=== PATIENT | female | born 1970 | race Caucasian/White ===

== ENCOUNTER → 2018-04-13 19:12 | Outpatient (CLI) | payer OTHER, SELFPAY ==
[2018-04-16 14:22] LABS: HPV APTIMA, High Risk Negative (Negative)
== END ==
PROVIDERS: PCP Nurse Practitioner Women's Health; Visit Provider Nurse Practitioner Women's Health
DX: Z12.4 Encounter for screening for malignant neoplasm of cervix (principal)
CPT/HCPCS: 88175; G0145

== ENCOUNTER → 2018-05-03 06:32 | Outpatient (CLI) | payer OTHER, SELFPAY ==
--- NOTE | 2018-05-03 06:32 | DT_ITS ---
This patient was seen during an EMR downtime April 26, 2018 - May 03, 2018. This patient may have a combination of paper and electronic documentation or all paper documentation. All documentation is viewable within the e-chart portion of [facility] for each patient visit.
[2018-05-03 08:44] LABS: Follicle Stimulating Hormone 18.1 mIU/mL
== END ==
PROVIDERS: Family Provider Family Medicine; PCP Family Medicine; Visit Provider Nurse Practitioner Women's Health
DX: N91.2 Amenorrhea, unspecified (principal)
CPT/HCPCS: 36415; 83001

== ENCOUNTER → 2019-04-27 11:19 | Outpatient (CLI) | payer OTHER, SELFPAY ==
--- NOTE | 2019-04-27 11:26 | BI_ITS ---
MAMMOGRAPHY - BILATERAL SCREENING REASON FOR EXAM: Female, 49 years old. Routine annual screening examination. PERTINENT HISTORY: Mother with breast cancer. TECHNIQUE: Digital bilateral breast kasey (3D mammographic acquisition) in the CC and MLO projections. 2-D mediolateral oblique (MLO) and craniocaudad (CC) views of both breasts were obtained. CAD: Full Field Digital Mammography with Computer Added Detection was performed. COMPARISON: Comparison is made with prior outside examination dated August 13, 2017. FINDINGS: Breast Composition: The breasts are heterogeneously dense, which may obscure small masses. There are no dominant masses or suspicious calcifications. No other significant abnormalities are identified. There has been no significant change since the prior study. BI/SCREEN MAMM (CAD) W/KASEY BILAT IMPRESSION: Stable bilateral screening mammogram. Yearly follow-up mammogram recommended. (A) ASSESSMENT CATEGORY: BIRADS Category 1: Negative. A letter regarding these results will be sent to the patient by the facility within 30 days. Approximately 10% of breast cancers are not detected by mammography. A normal mammogram should not delay biopsy of a clinically suspicious abnormality. [id number] Electronically Signed: Juan Guzman, at 12:47 EDT , Service support ,
[2019-04-27 13:31] LABS: Follicle Stimulating Hormone 5.9 mIU/mL
== END ==
PROVIDERS: Family Provider Family Medicine; PCP Family Medicine; Referring Provider Nurse Practitioner Women's Health; Visit Provider Nurse Practitioner Women's Health
DX: Z12.31 Encounter for screening mammogram for malignant neoplasm of breast (principal); Z80.3 Family history of malignant neoplasm of breast; N91.2 Amenorrhea, unspecified
CPT/HCPCS: 36415; 77063; 77067; 83001

== ENCOUNTER → 2020-04-23 06:49 | Outpatient (CLI) | payer OTHER, SELFPAY ==
[2019-04-27 11:54] VITALS: BMI 35.4
[2020-04-23 14:28] LABS: Follicle Stimulating Hormone 49.9 mIU/mL
== END ==
PROVIDERS: PCP Family Medicine; Referring Provider Nurse Practitioner Women's Health; Visit Provider Nurse Practitioner Women's Health
DX: N91.2 Amenorrhea, unspecified (principal)
CPT/HCPCS: 36415; 83001

== ENCOUNTER → 2020-05-04 07:01 | Outpatient (CLI) | payer OTHER, SELFPAY ==
[2020-05-02 08:05] VITALS: BMI 37.5
--- NOTE | 2020-05-04 07:02 | BI_ITS ---
MAMMOGRAPHY - BILATERAL SCREENING REASON FOR EXAM: Female, 50 years old. Routine annual screening examination. PERTINENT HISTORY: Mother with breast cancer. TECHNIQUE: Digital bilateral breast kasey (3D mammographic acquisition) in the CC and MLO projections. 2-D mediolateral oblique (MLO) and craniocaudad (CC) views of both breasts were obtained. CAD: Full Field Digital Mammography with Computer Added Detection was performed. COMPARISON: Comparison is made with prior examination dated April 27, 2019. FINDINGS: Breast Composition: The breasts are heterogeneously dense, which may obscure small masses. There are no dominant masses or suspicious calcifications. No other significant abnormalities are identified. There has been no significant change since the prior study. BI/SCREEN MAMM (CAD) W/KASEY BILAT IMPRESSION: Stable bilateral screening mammogram. Yearly follow-up mammogram recommended. (A) ASSESSMENT CATEGORY: BIRADS Category 1: Negative. A letter regarding these results will be sent to the patient by the facility within 30 days. Approximately 10% of breast cancers are not detected by mammography. A normal mammogram should not delay biopsy of a clinically suspicious abnormality. [id number] Electronically Signed: Juan Guzman, at 8:31 EDT , Service support ,
== END ==
PROVIDERS: PCP Family Medicine; Referring Provider Nurse Practitioner Women's Health; Visit Provider Nurse Practitioner Women's Health
DX: Z12.31 Encounter for screening mammogram for malignant neoplasm of breast (principal); Z80.3 Family history of malignant neoplasm of breast
CPT/HCPCS: 77063; 77067

== ENCOUNTER → 2020-05-07 06:29 | Outpatient (CLI) | payer OTHER, SELFPAY ==
[2020-05-02 08:05] VITALS: BMI 37.5
[2020-05-07 07:21] LABS: Cholesterol 230 mg/dL (200); Glucose 88 mg/dL (74-106); High Density Lipoprotein 71 mg/dL; Thyroid Stim Hormone (TSH) 2.34 uIU/mL (0.358-3.74); Triglycerides 160 mg/dL; Very Low Density Lipoprotein 32 mg/dL (5-40)
== END ==
PROVIDERS: PCP Family Medicine; Referring Provider Nurse Practitioner Women's Health; Visit Provider Nurse Practitioner Women's Health
DX: Z00.00 Encounter for general adult medical examination without abnormal findings (principal)
CPT/HCPCS: 36415; 80061; 82947; 84443

== ENCOUNTER 2021-02-08 11:47 | Outpatient (RCR) | payer OTHER, SELFPAY ==
[2020-05-02 08:05] VITALS: BMI 37.5
[2021-02-08] MEDS: COVID-19 VACC, MRNA(PFIZER)/PF 30 MCG/0.3 ML SYRINGE IM (11:25)
[2021-03-01] MEDS: COVID-19 VACC, MRNA(PFIZER)/PF 30 MCG/0.3 ML SYRINGE IM (11:17)
== END 2021-02-08 23:59 ==
LOC: IMMUN 11:47
PROVIDERS: PCP Family Medicine; Visit Provider Family Medicine
DX: Z23 Encounter for immunization (principal)
CPT/HCPCS: 0001A; 0002A; 91300

== ENCOUNTER → 2021-05-07 07:35 | Outpatient (CLI) | payer BC, SELFPAY ==
[2020-05-02 08:05] VITALS: BMI 37.5
--- NOTE | 2021-05-07 07:37 | BI_ITS ---
MAMMOGRAPHY - BILATERAL SCREENING REASON FOR EXAM: Female, 51 years old. Routine annual screening examination. PERTINENT HISTORY: Mother with breast cancer. TECHNIQUE: Digital bilateral breast kasey (3D mammographic acquisition) in the CC and MLO projections. 2-D mediolateral oblique (MLO) and craniocaudad (CC) views of both breasts were obtained. CAD: Full Field Digital Mammography with Computer Added Detection was performed. COMPARISON: Comparison is made with prior study 05/04/2020 and 04/27/2019. FINDINGS: Breast Composition: The breasts are heterogeneously dense, which may obscure small masses. There are no dominant masses or suspicious calcifications. No other significant abnormalities are identified. There has been no significant change since the prior study. BI/SCRN MAMM (CAD)W/KASEY BILAT IMPRESSION: Stable bilateral screening mammogram. Yearly follow-up mammogram recommended. (A) ASSESSMENT CATEGORY: BIRADS Category 1: Negative. A letter regarding these results will be sent to the patient by the facility within 30 days. Approximately 10% of breast cancers are not detected by mammography. A normal mammogram should not delay biopsy of a clinically suspicious abnormality. [id number] Electronically Signed: Juan Guzman MD at 8:39 EDT , Service support ,
[2021-05-10 16:53] LABS: HPV APTIMA, High Risk Negative (Negative)
== END ==
PROVIDERS: PCP Family Medicine; Referring Provider Nurse Practitioner Women's Health; Visit Provider Nurse Practitioner Women's Health
DX: Z12.31 Encounter for screening mammogram for malignant neoplasm of breast (principal); Z12.4 Encounter for screening for malignant neoplasm of cervix
CPT/HCPCS: 77063; 77067; 87624; 88175; G0145

== ENCOUNTER → 2022-05-14 | Outpatient (CLI) | payer BC, SELFPAY ==
--- NOTE | 2022-05-14 07:13 | BI_ITS ---
MAMMOGRAPHY - BILATERAL SCREENING REASON FOR EXAM: Female, 52 years old. Routine annual screening examination. PERTINENT HISTORY: Mother with breast cancer. TECHNIQUE: Digital bilateral breast kasey (3D mammographic acquisition) in the CC and MLO projections. 2-D mediolateral oblique (MLO) and craniocaudad (CC) views of both breasts were obtained. CAD: Full Field Digital Mammography with Computer Added Detection was performed. COMPARISON: Mammogram from 05/07/2021, 05/04/2020, 04/27/2019. FINDINGS: Breast Composition: The breasts are heterogeneously dense, which may obscure small masses. There are no dominant masses or suspicious calcifications. No other significant abnormalities are identified. There has been no significant change since the prior study. BI/SCRN MAMM (CAD)W/KASEY BILAT IMPRESSION: Stable bilateral screening mammogram. Yearly follow-up mammogram recommended. (A) ASSESSMENT CATEGORY: BIRADS Category 1: Negative. A letter regarding these results will be sent to the patient by the facility within 30 days. Approximately 10% of breast cancers are not detected by mammography. A normal mammogram should not delay biopsy of a clinically suspicious abnormality. [id number] Electronically Signed: Milton Gonzales, at 10:58 EDT ,
== END | disposition home or self-care (01) ==
LOC: OPBI 07:11
PROVIDERS: Visit Provider Nurse Practitioner Women's Health
DX: Z12.31 Encounter for screening mammogram for malignant neoplasm of breast (principal); Z80.3 Family history of malignant neoplasm of breast
CPT/HCPCS: 77063; 77067

== ENCOUNTER → 2023-05-25 | Outpatient (CLI) | payer BC, SELFPAY ==
--- NOTE | 2023-05-25 07:25 | BI_ITS ---
MAMMOGRAPHY - BILATERAL SCREENING REASON FOR EXAM: Female, 53 years old. Routine annual screening examination. PERTINENT HISTORY: Mother with breast cancer. TECHNIQUE: Digital bilateral breast kasey (3D mammographic acquisition) in the CC and MLO projections. 2-D mediolateral oblique (MLO) and craniocaudad (CC) views of both breasts were obtained. CAD: Full Field Digital Mammography with Computer Added Detection was performed. COMPARISON: Comparison is made with prior study May 14, 2022 and May 07, 2021. FINDINGS: Breast Composition: The breasts are heterogeneously dense, which may obscure small masses. There are no dominant masses or suspicious calcifications. Stable small benign-appearing bilateral axillary lymph nodes. No other significant abnormalities are identified. There has been no significant change since the prior study. BI/SCRN MAMM (CAD)W/KASEY BILAT IMPRESSION: Stable bilateral screening mammogram. Yearly follow-up mammogram recommended. (A) ASSESSMENT CATEGORY: BIRADS Category 2: Benign. A letter regarding these results will be sent to the patient by the facility within 30 days. Approximately 10% of breast cancers are not detected by mammography. A normal mammogram should not delay biopsy of a clinically suspicious abnormality. [id number] Electronically Signed: Juan Guzman MD at 8:46 EDT ,
[2023-05-29 05:07] LABS: Chlamydia By Nucleic Acid AMP Negative (Negative); Gonococcus By Nucleic Acid AMP Negative (Negative)
== END | disposition home or self-care (01) ==
PROVIDERS: Referring Provider Nurse Practitioner Women's Health; Visit Provider Nurse Practitioner Women's Health
DX: Z12.31 Encounter for screening mammogram for malignant neoplasm of breast (principal); Z11.3 Encounter for screening for infections with a predominantly sexual mode of transmission; Z80.3 Family history of malignant neoplasm of breast
CPT/HCPCS: 77063; 77067; 87491; 87591

== ENCOUNTER → 2023-06-18 | Outpatient (CLI) | payer BC, SELFPAY ==
[2023-06-18 07:20] LABS: Absolute Lymphocyte Count 1.49 X10^3/uL (0.83-4.51); Absolute Neutrophil Count 3.9 X10^3/uL (2.0-7.7); Basophil# 0.06 X10^3/uL; Eosinophil# 0.25 X10^3/uL; Hematocrit 40.6 % (37-47); Hemoglobin 13.2 g/dL (12.0-15.0); Lymphocyte # 1.49 X10^3/ul (0.83-4.51); Mean Corp Hgb Conc 32.5 g/dL (32-36); Mean Corpuscular Hgb 30.8 pg (27.0-32.0); Mean Corpuscular Volume 94.6 fL (81-99); Mean Platelet Vol. 10.6 fl (6.2-12.0); Monocyte# 0.51 X10^3/uL; Monocyte% 8.2 % (0-10); NRBC Flagged by Analyzer 0 % (0-5); Neutrophil # 3.88 X10^3/uL (2.7-7.7); Neutrophil % 62.3 % (47-70); Platelet Count 227 K/mm3 (150-450); RBC Distribution Width CV 12.9 % (11.6-14.6); RBC Distribution Width SD 44.5 fl (35.1-43.9); Red Blood Count 4.29 M/mm3 (4.2-5.4); White Blood Count 6.2 K/mm3 (4.4-11.0)
[2023-06-18 07:43] LABS: ALB/GLOB Ratio 0.7 RATIO (0.9-2.4); AST(SGOT) 18 U/L (15-37); Alanine Aminotransfer ALT/SGPT 25 U/L (13-56); Albumin, Serum 3.5 g/dL (3.2-5.0); Alkaline Phosphatase 117 U/L (45-117); Anion Gap 7 (5-15); BUN 18 mg/dL (7-18); BUN/Creat Ratio 19.5 RATIO (10-20); Chloride 105 mmol/L (98-107); Cholesterol 236 mg/dL (200); Creatinine, Serum 0.92 mg/dL (0.55-1.02); EST Glomerular Filtration Rate 67 mL/min (>60); Est Glom Filt Rate - Afr Amer 82 mL/min (>60); Globulin 4.7 g/dL (2.2-4.2); Glucose 93 mg/dL (74-106); High Density Lipoprotein 71 mg/dL; Potassium 4.1 mmol/L (3.5-5.1); Protein, Total 8.2 g/dL (6.4-8.2); Sodium Level 138 mmol/L (136-145); Triglycerides 113 mg/dL; Very Low Density Lipoprotein 23 mg/dL (5-40)
== END | disposition home or self-care (01) ==
PROVIDERS: PCP Internal Medicine; Referring Provider Internal Medicine; Visit Provider Internal Medicine
DX: Z00.00 Encounter for general adult medical examination without abnormal findings (principal); Z13.6 Encounter for screening for cardiovascular disorders
CPT/HCPCS: 36415; 80053; 80061; 85025

== ENCOUNTER → 2024-06-01 | Outpatient (CLI) | payer BC, SELFPAY ==
--- NOTE | 2024-06-01 07:18 | BI_ITS ---
MAMMOGRAPHY - BILATERAL SCREENING REASON FOR EXAM: Female, 54 years old. Routine annual screening examination. PERTINENT HISTORY: Mother with breast cancer. TECHNIQUE: Digital bilateral breast kasey (3D mammographic acquisition) in the CC and MLO projections. 2-D mediolateral oblique (MLO) and craniocaudad (CC) views of both breasts were obtained. CAD: Full Field Digital Mammography with Computer Added Detection was performed. COMPARISON: Comparison is made with prior study dated May 25, 2023 and May 14, 2022. FINDINGS: Breast Composition: The breasts are heterogeneously dense, which may obscure small masses. There are no dominant masses or suspicious calcifications. Stable small benign-appearing bilateral axillary lymph nodes. No other significant abnormalities are identified. There has been no significant change since the prior study. BI/SCRN MAMM (CAD)W/KASEY BILAT IMPRESSION: Stable bilateral screening mammogram. Yearly follow-up mammogram recommended. (A) ASSESSMENT CATEGORY: BIRADS Category 2: Benign. A letter regarding these results will be sent to the patient by the facility within 30 days. Approximately 10% of breast cancers are not detected by mammography. A normal mammogram should not delay biopsy of a clinically suspicious abnormality. [id number] Electronically Signed: Juan Guzman MD at 8:33 EDT ,
[2024-06-07 14:10] LABS: HPV APTIMA, High Risk Negative (Negative)
== END | disposition home or self-care (01) ==
PROVIDERS: Nurse Practitioner Family; PCP Internal Medicine; Referring Provider Nurse Practitioner Women's Health; Visit Provider Nurse Practitioner Women's Health
DX: Z12.31 Encounter for screening mammogram for malignant neoplasm of breast (principal); Z80.3 Family history of malignant neoplasm of breast
CPT/HCPCS: 77063; 77067; 87624; 88175; G0145

== ENCOUNTER → 2024-06-22 | Outpatient (CLI) | payer BC, SELFPAY ==
[2024-06-22 07:25] LABS: Absolute Lymphocyte Count 1.92 X10^3/uL (0.83-4.51); Absolute Neutrophil Count 3.1 X10^3/uL (2.0-7.7); Basophil# 0.06 X10^3/uL; Eosinophil# 0.33 X10^3/uL; Eosinophils% 5.6 % (0-5); Hematocrit 38.5 % (37-47); Hemoglobin 12.6 g/dL (12.0-15.0); Lymphocyte # 1.92 X10^3/ul (0.83-4.51); Lymphocyte % 32.4 % (19-41); Mean Corp Hgb Conc 32.7 g/dL (32-36); Mean Corpuscular Hgb 29.6 pg (27.0-32.0); Mean Corpuscular Volume 90.4 fL (81-99); Mean Platelet Vol. 10.8 fl (6.2-12.0); Monocyte# 0.46 X10^3/uL; Monocyte% 7.8 % (0-10); NRBC Flagged by Analyzer 0 % (0-5); Neutrophil # 3.14 X10^3/uL (2.7-7.7); Neutrophil % 52.9 % (47-70); Platelet Count 244 K/mm3 (150-450); RBC Distribution Width CV 12.9 % (11.6-14.6); RBC Distribution Width SD 42.5 fl (35.1-43.9); Red Blood Count 4.26 M/mm3 (4.2-5.4); White Blood Count 5.9 K/mm3 (4.4-11.0)
[2024-06-22 07:52] LABS: ALB/GLOB Ratio 0.8 RATIO (0.9-2.4); AST(SGOT) 17 U/L (15-37); Alanine Aminotransfer ALT/SGPT 17 U/L (13-56); Albumin, Serum 3.4 g/dL (3.2-5.0); Alkaline Phosphatase 107 U/L (45-117); Anion Gap 2 (5-15); BUN 15 mg/dL (7-18); BUN/Creat Ratio 16.9 RATIO (10-20); Calcium,Total 8.8 mg/dL (8.5-10.1); Chloride 107 mmol/L (98-107); Cholesterol 202 mg/dL (200); Creatinine, Serum 0.89 mg/dL (0.55-1.02); EST Glomerular Filtration Rate 70 mL/min (>60); Est Glom Filt Rate - Afr Amer 85 mL/min (>60); Globulin 4.3 g/dL (2.2-4.2); Glucose 86 mg/dL (74-106); High Density Lipoprotein 69 mg/dL; Potassium 4.2 mmol/L (3.5-5.1); Protein, Total 7.7 g/dL (6.4-8.2); Sodium Level 138 mmol/L (136-145); Triglycerides 100 mg/dL; Very Low Density Lipoprotein 20 mg/dL (5-40)
== END | disposition home or self-care (01) ==
LOC: LAB 06:41
PROVIDERS: PCP Internal Medicine; Referring Provider Nurse Practitioner; Visit Provider Nurse Practitioner
DX: Z00.00 Encounter for general adult medical examination without abnormal findings (principal)
CPT/HCPCS: 36415; 80053; 80061; 85025

== ENCOUNTER → 2025-06-06 | Outpatient (CLI) | payer BC, SELFPAY ==
--- NOTE | 2025-06-06 06:55 | BI_ITS ---
EXAM: SCRN MAMM (CAD)W/KASEY BILAT DATE: 06/06/2025 CLINICAL HISTORY: F, Age 55 y/o , SCREENING MAMMOGRAM FOR BREAST CANCER History of mother with breast cancer. TECHNIQUE: SCRN MAMM (CAD)W/KASEY BILAT COMPARISON: Prior exam(s) dated June 01, 2024.. FINDINGS: TISSUE DENSITY: The breasts are heterogeneously dense, which may obscure small masses. Bilateral Breast Mammographic Findings: There is a 7.5 mm slightly irregular density in the deep medial upper aspect of the left breast. Correlation with ultrasound recommended. BI/SCRN MAMM (CAD)W/KASEY BILAT IMPRESSION: 7.5 mm irregular nodular density seen deep in the medial upper aspect of the le ft breast as described. Sonographic correlation recommended. OVERALL FINAL ASSESSMENT BI-RADS 0: INCOMPLETE - NEED ADDITIONAL IMAGING EVALUATION. RECOMMENDATION: Ultrasound Recommended A letter with findings and recommendations will be mailed to the patient. Reading Location: [facility]
--- NOTE | 2025-06-06 06:55 | BI_ITS ---
EXAM: SCRN MAMM (CAD)W/KASEY BILAT DATE: 06/06/2025 CLINICAL HISTORY: F, Age 55 y/o , SCREENING MAMMOGRAM FOR BREAST CANCER History of mother with breast cancer. TECHNIQUE: SCRN MAMM (CAD)W/KASEY BILAT COMPARISON: Prior exam(s) dated June 01, 2024.. FINDINGS: TISSUE DENSITY: The breasts are heterogeneously dense, which may obscure small masses. Bilateral Breast Mammographic Findings: There is a 7.5 mm slightly irregular density in the deep medial upper aspect of the left breast. Correlation with ultrasound recommended. BI/SCRN MAMM (CAD)W/KASEY BILAT IMPRESSION: 7.5 mm irregular nodular density seen deep in the medial upper aspect of the le ft breast as described. Sonographic correlation recommended. OVERALL FINAL ASSESSMENT BI-RADS 0: INCOMPLETE - NEED ADDITIONAL IMAGING EVALUATION. RECOMMENDATION: Ultrasound Recommended A letter with findings and recommendations will be mailed to the patient. Reading Location: [facility]
--- OUTSIDE RECORDS SUMMARY | 2025-06-06 07:09 | XMS RPT_ITS | CCD ---
Author Organization [facility] Care Team Providers Care Traveling Passenger Agent Name Role Phone Dr. Ye Villanueva Referring Provider Aclides HVAC SERVICE TECH, HVAC SERVICE TECH-C Mónica Attending Provider Care Physician, No Primary Primary Care Provider Unavailable Unavailable Primary Care Provider Unavailabl e Care Physician, No Primary Primary Care Provider Unavailable Care Physician, No Primary Referring Provider Un available Alcides HVAC SERVICE TECH, HVAC SERVICE TECH-C Móniac Attending Provider Dr. Bev Banks Attending Provider Sanderson, Bev Primary Care Unavailable July Ny Attending Unavailable Darren Bev Referring Unavailable Sanderson, Bev Primary Care Unavailable Alcides HVAC SERVICE TECHMónica Attending Unavailable Darren, Bev Referring Unavailable Darren, Bev Primary Care Unavailable July Ny Referring Unavailable July Ny Attending Unavailable Sanderson, Bev Primary Care Unavailable Alcides HVAC SERVICE TECHMónica Referring Unavailable Alcides HVAC SERVICE TECHMónica Attending Unavailable Allergies Allergy Classification Reported Allergen(s) Allergy Type Date of Onset Reaction(s) Facility (2 sources) Penicillins; Translations: [PENICILLINS] Propensity to adverse reactions to drug (disorder) 2 GI Upset [facility] Repository Medications Current Medications Medication Drug Class(es) Dates Sig (Normalized) Sig (Original) calcium carbonate 1500 mg oral tablet (2 sources) Start: 05-25-2023 take 1 tablet by mouth once daily Calcium Carbonate (Calcium 600) 600 mg calcium (1,500 mg) tablet Active 600 MG PO DAILY May 25, 2023 12:00am Radhika albicans allergenic extract (1 source) Non-Standardized Food Allergenic Extract, Non-Standardized Fungal Allergenic Extract Start: 06-16-2023 Yeast Active MG PO June 16, 2023 12:00am cephalexin 500 mg oral capsule (1 source) Cephalosporin Antibacterial Start: 11-28-2022 End: 12-03-2022 take 1 capsule by mouth four times daily cephALEXin (KEFLEX) 500 mg capsule Take 1 capsule by mouth four times daily for 5 days. 20 capsule 0 11/28/2022 12/03/2022 Active Comment on above: Take 1 capsule by mo uth four times daily for 5 days. Cranberry Fruit Concentrate (1 source) Non-Standardized Food Allergenic Extract, Non-Standardized Plant Allergenic Extract Start: 06-16-2023 take 1 tablet by mouth three times daily Cranberry Fruit Concentrate (Azo Cranberry) 250 mg tablet,chewable Active 250 MG PO THREE TIMES A DAY June 16, 2023 12:00am Multivit With Min-Folic Acid (One-A-Day Women Vitacraves) 200 mcg tablet,chewable (1 source) Start: 06-16-2023 take 1 tablet by mouth once Multivit With Min-Folic Acid (One-A-Day Women Vitacraves) 200 mcg tablet,chewable Active TABLET PO June 16, 2023 12:00am serene (3 sources) Start: 05-14-2022 serene Active PO May 14, 2022 12:00am spironolactone 25 mg oral tablet (1 source) Aldosterone Antagonist Start: 06-16-2023 Spironolactone Active MG PO June 16, 2023 12:00am Completed/Discontinued Medications Medication Drug Class(es) Dates Sig (Normalized) Sig (Original) Desog-E.Estradiol/ E.Estradiol (13 sources) Progestin, Estrogen Start: 04-27-2019 End: 05-02-2020 take 0.15 tablet by mouth once daily Desog-E.Estradiol/E .Estradiol (Viorele (28)) 0.15-0.02 mgx21 /0.01 mg x 5 tablet Discontinued 1 TABLET PO daily April 27, 2019 11:55am May 02, 2020 8:11am Start: 05-05-2018 End: 04-27-2019 take 0.15 tablet by mouth once daily Desog-E.Estradiol/E.Estradiol (Viorele ( 28)) 0.15-0.02 mgx21 /0.01 mg x 5 tablet Discontinued 1 TABLET PO daily May 05, 2018 10:03am April 27, 2019 11:56am Start: 04-16-2018 End: 05-05-2018 take 0.15 tablet by mouth once daily Desog-E.Estradiol/E.Estradiol (Viorele ( 28)) 0.15-0.02 mgx21 /0.01 mg x 5 tablet Discontinued 1 TABLET PO daily April 16, 2018 7:32am May 05, 2018 10:05am Start: 04-13-2018 End: 04-16-2018 take 0.15 tablet by mouth once daily Desog-E.Estradiol/E.Estradiol (Viorele ( 28)) 0.15-0.02 mgx21 /0.01 mg x 5 tablet Discontinued 1 TABLET PO daily April 13, 2018 12:00am April 16, 2018 7:33am Start: 04-30-2017 take 1 tablet by lucio th once daily Desogestrel-Ethinyl Estradiol (VIORELE, 28,) 0.15-0.02 mgx21 /0.01 mg x 5 per tablet Indications: General counseling for prescription of oral contraceptives Take 1 tablet by mouth once daily. 3 Package 4 04/30/2017 Active Comment on above: Take 1 tablet by lucio th once daily. dim (3 sources) Start: 05-14-2022 End: 05-25-2023 dim Discontinued PO May 14, 2022 12:00am May 25, 2023 8:10am Start: 05-14-2022 dim Active PO May 14, 2022 12:00am fluconazole 150 mg oral tablet (8 sources) Azole Antifungal Start: 05-25-2023 End: 06-16-2023 Fluconazole Discontinued 150 MG PO .COMPLEX 2 May 25, 2023 12:00am June 16, 2023 12:34pm 150 mg PO take one po now and repeat in 3 days Start: 05-02-2020 End: 05-07-2021 Fluconazole Discontinued 150 MG PO .COMPLEX 2 May 02, 2020 12:00am May 07, 2021 8:02am 150 mg PO take one po now and repeat in 3 days Start: 04-16-2018 End: 04-27-2019 Fluconazole Discontinued 150 MG PO .COMPLEX 2 April 16, 2018 12:00am April 27, 2019 11:52am 150 mg PO take one po now and repeat in 3 days hormone replacement therapy (3 sources) Start: 05-14-2022 End: 05-25-2023 hormone replacement therapy Discontinued IMPLANT May 14, 2022 12:00am May 25, 2023 8:10am pellets Start: 05-14-2022 hormone replac ement therapy Active IMPLANT May 14, 2022 12:00am pellets medroxyPROGESTERone acetate 10 mg oral tablet (3 sources) Progestin Start: 05-14-2022 End: 05-24-2022 take 10 mg by mouth once daily Medroxyprogesterone Discontinued 10 MG PO daily 10 May 14, 2022 12:00am May 24, 2022 12:05am Phenazopyridine (1 source) PHENAZOPYRIDINE HCL (AZO ORAL) Take by mouth. 0 Active Comment on above: Take by mouth. Problems Problem Classification Problem Date Documented Date Episodic/Chronic Administrative/social admission (3 sources) Patient encounter status; Translations: [Other specified counseling] Episodic Disorders of lipid metabolism (1 source) Hyperlipidemia; Translations: [Hyperlipidemia, unspecified] 09-28-2007 Chronic Disorders of teeth and jaw (1 source) Infection of tooth; Translations: [Periapical abscess without sinus] Episodic Immunizations and screening for infectious disease (2 sources) Contact with and (suspected) exposure to infections with a predominantly sexual mode of transmission; Translations: [Contact with or exposure to venereal diseases] 05-25-2023 Episodic Mood disorders (1 source) Depressive disorder; Translations: [Other specified depressive episodes] Onset: 07-17-2009 07-17-2009 Chronic Mycoses (2 sources) Candidiasis of vagina; Translations: [Anogenital candidiasis in female] 05-25-2023 Episodic Other nutritional; endocrine; and metabolic disorders (1 source) Obesity; Translations: [Obesity, unspecified] Onset: 06-06-2009 06-06-2009 Chronic Other screening for suspected conditions (not mental disorders or infectious disease) (3 sources) Encounter for screening for malignant neoplasm of colon; Translations: [Special screening for malignant neoplasms of colon] Onset: 06-02-2025 06-16-2023 Episodic Residual codes; unclassified (3 sources) Family history of malignant neoplasm of breast in first degree relative; Translations: [Family history of malignant neoplasm of breast] 05-25-2023 Episodic Residual codes; unclassified (1 source) Family history of malignant neoplasm of breast; Translations: [Family history of malignant neoplasm of breast] Episodic Residual codes; unclassified (1 source) Immunization not carried out because of patient refusal; Translations: [Vaccination not carried out because of patient refusal] 06-16-2023 Episodic Results Test Name Value Interpretation Reference Range Facility CBC W/Diff, Automatedon - Absolute Lymph 1.92 X10 3/uL Normal 0.83-4.51 [facility] Comment on above: Performed By: #### L [id number], L500.4100, L100.0100 #### [facility] [address] [place], [address] Absolute Neut 3.1 X10 3/uL Normal 2.0-7.7 [facility] Comment on above: Performed By: #### L [id number], L500.4100, L100.0100 #### [facility] [address] [place], [address] Basophils/100 WBC (Bld) 1.0 % Normal 0-1 [facility] Comment on above: Performed By: #### L [id number], L500.4100, L100.0100 #### [facility] [address] [place], [address] Eosinophils/100 WBC (Bld) 5.6 % High 0-5 [facility] Comment on above: Performed By: #### L [id number], L500.4100, L100.0100 #### [facility] [address] [place], [address] Erythrocyte distribution width (RBC) [Ratio] 12.9 % Normal 11.6-14.6 [facility] Comment on above: Performed By: #### L [id number], L500.4100, L100.0100 #### [facility] [address] [place], [address] Hematocrit (Bld) [Volume fraction] 38.5 % Normal 37-47 [facility] Comment on above: Performed By: #### L [id number], L500.4100, L100.0100 #### [facility] [address] [place], [address] Hemoglobin (Bld) [Mass/Vol] 12.6 g/dL Normal 12.0-15.0 [facility] Comment on above: Performed By: #### L [id number], L500.4100, L100.0100 #### [facility] [address] [place], [address] IG% 0.300 Normal 0.0-0.9 [facility] Comment on above: Result Comment: IG% - Immature Granulocytes (promyelocytes, myelocytes and metamyelocytes) > 1% indicates that a LEFT SHIFT is Present. Performed By: #### L [id number], L500.4100, L100.0100 #### [facility] [address] [place], [address] Lymphocytes/100 WBC (Bld) 32.4 % Normal 19-41 [facility] Comment on above: Performed By: #### L [id number], L500.4100, L100.0100 #### [facility] [address] [place], [address] MCH (RBC) [Entitic mass] 29.6 pg Normal 27.0-32.0 [facility] Comment on above: Performed By: #### L [id number], L500.4100, L100.0100 #### [facility] [address] [place], [address] MCHC (RBC) [Mass/Vol] 32.7 g/dL Normal 32-36 [facility] Comment on above: Performed By: #### L [id number], L500.4100, L100.0100 #### [facility] [address] [place], [address] MCV (RBC) [Entitic vol] 90.4 fL Normal 81-99 [facility] Comment on above: Performed By: #### L [id number], L500.4100, L100.0100 #### [facility] [address] [place], [address] Monocytes/100 WBC (Bld) 7.8 % Normal 0-10 [facility] Comment on above: Performed By: #### L [id number], L500.4100, L100.0100 #### [facility] [address] [place], [address] Neutrophils/100 WBC (Bld) 52.9 % Normal 47-70 [facility] Comment on above: Performed By: #### L [id number], L500.4100, L100.0100 #### [facility] [address] [place], [address] Nucleated RBC (Bld) [#/Vol] 0 10*3/uL Normal 0-5 [facility] Comment on above: Performed By: #### L 500.4050, L500.4100, L100.0100 #### [facility] [address] [place], [address] Platelet mean volume (Bld) [Entitic vol] 10.8 fL Normal 6.2-12.0 [facility] Comment on above: Performed By: #### L 500.4050, L500.4100, L100.0100 #### [facility] [address] [place], [address] Platelets (Bld) [#/Vol] 244 10*3/uL Normal 150-450 [facility] Comment on above: Performed By: #### L [id number], L500.4100, L100.0100 #### [facility] [address] [place], [address] RBC (Bld) [#/Vol] 4.26 10*6/uL Normal 4.2-5.4 [facility] Comment on above: Performed By: #### L 500.4050, L500.4100, L100.0100 #### [facility] [address] [place], [address] RDW SD 42.5 fl Normal 35.1-43.9 [facility] Comment on above: Performed By: #### L [id number], L500.4100, L100.0100 #### [facility] [address] [place], [address] WBC (Bld) [#/Vol] 5.9 10*3/uL Normal 4.4-11.0 [facility] Comment on above: Performed By: #### L [id number], L500.4100, L100.0100 #### [facility] [address] [place], [address] Comprehensive Metabolic Prof [facility] 06-22-2024 Albumin [Mass/Vol] 3.4 g/dL Normal 3.2-5.0 [facility] Comment on above: Performed By: #### L 500.4050, L500.4100, L100.0100 #### [facility] [address] [place], [address] Albumin/Globulin [Mass ratio] 0.8 {ratio} Low 0.9-2.4 [facility] Comment on above: Performed By: #### L [id number], L500.4100, L100.0100 #### [facility] [address] [place], [address] ALK P 107 U/L Normal 45-117 [facility] Comment on above: Performed By: #### L 500.4050, L500.4100, L100.0100 #### [facility] [address] [place], [address] ALT [Catalytic activity/Vol] 17 U/L Normal 13-56 [facility] Comment on above: Performed By: #### L 500.4050, L500.4100, L100.0100 #### [facility] [address] [place], [address] AST [Catalytic activity/Vol] 17 U/L Normal 15-37 [facility] Comment on above: Performed By: #### L 500.4050, L500.4100, L100.0100 #### [facility] [address] [place], [address] Bilirubin [Mass/Vol] 0.30 mg/dL Normal 0.20-1.00 [facility] Comment on above: Result Comment: For patients on eltrombopag therapy, use of Dimension [place] TBIL is not recommended. Performed By: #### L 500.4050, L500.4100, L100.0100 #### [facility] [address] [place], [address] BUN/CRE 16.9 RATIO Normal 10-20 [facility] Comment on above: Performed By: #### L 500.4050, L500.4100, L100.0100 #### [facility] [address] [place], [address] CA,Total 8.8 mg/dL Normal 8.5-10.1 [facility] Comment on above: Performed By: #### L 500.4050, L500.4100, L100.0100 #### [facility] [address] [place], [address] Chloride [Moles/Vol] 107 mmol/L Normal 98-107 [facility] Comment on above: Performed By: #### L 500.4050, L500.4100, L100.0100 #### [facility] [address] [place], [address] CO2 [Moles/Vol] 29.0 mmol/L Normal 21.0-32.0 [facility] Comment on above: Performed By: #### L 500.4050, L500.4100, L100.0100 #### [facility] [address] [place], [address] Creatinine [Mass/Vol] 0.89 mg/dL Normal 0.55-1.02 [facility] Comment on above: Result Comment: The validity of the calculated GFR GFRAA in patients over 70 years has not been determined. Clinical correlation is essential. Performed By: #### L 500.4050, L500.4100, L100.0100 #### [facility] [address] [place], [address] EST GFR - AA 85 mL/min Normal >60 [facility] Comment on above: Result Comment: Afri can Mauritian GFR Calc Performed By: #### L 500.4050, L500.4100, L100.0100 #### [facility] [address] [place], [address] GAP 2 Low 5-15 [facility] Comment on above: Performed By: #### L 500.4050, L500.4100, L100.0100 #### [facility] [address] [place], [address] GFR/1.73 sq M.predicted among non-blacks MDRD (S/P/Bld) [Vol rate/Area] 70 mL/min/{1.73_m2} Normal >[address] [facility] Comment on above: Result Comment: Non- GFR Calc Performed By: #### L 500.4050, L500.4100, L100.0100 #### [facility] [address] [place], [address] Globulin (S) [Mass/Vol] 4.3 g/dL High 2.2-4.2 [facility] Comment on above: Performed By: #### L 500.4050, L500.4100, L100.0100 #### [facility] [address] [place], [address] Glucose [Mass/Vol] 86 mg/dL Normal 74-106 [facility] Comment on above: Performed By: #### L 500.4050, L500.4100, L100.0100 #### [facility] [address] [place], [address] Potassium [Moles/Vol] 4.2 mmol/L Normal 3.5-5.1 [facility] Comment on above: Performed By: #### L 500.4050, L500.4100, L100.0100 #### [facility] [address] [place], [address] Sodium [Moles/Vol] 138 mmol/L Normal 136-145 [facility] Comment on above: Performed By: #### L 500.4050, L500.4100, L100.0100 #### [facility] [address] [place], [address] T PROT 7.7 g/dL Normal 6.4-8.2 [facility] Comment on above: Performed By: #### L 500.4050, L500.4100, L100.0100 #### [facility] [address] [place], [address] Urea nitrogen [Mass/Vol] 15 mg/dL Normal 7-18 [facility] Comment on above: Performed By: #### L 500.4050, L500.4100, L100.0100 #### [facility] [address] [place], [address] Lipid Profileon 06-22-2024 Cholesterol [Mass/Vol] 202 mg/dL High [address] [facility] Comment on above: Result Comment: <200 mg/dL Desirable 200-240 mg/dL Borderline >240 mg/dL High Risk Performed By: #### L 500.4050, L500.4100, L100.0100 #### [facility] [address] [place], [address] Cholesterol in HDL [Mass/Vol] 69 mg/dL Normal [facility] Comment on above: Result Comment: The drugs N-Acetylcysteine and Metamizole may falsely depress this assay. Reference Range HDL <40 mg/dL Low HDL Cholesterol HDL >or= 60 mg/dL High HDL Cholesterol Performed By: #### L 500.4050, L500.4100, L100.0100 #### [facility] [address] [place], [address] Cholesterol in LDL [Mass/Vol] 113 mg/dL Normal 0-130 [facility] Comment on above: Performed By: #### L 500.4050, L500.4100, L100.0100 #### [facility] [address] [place], [address] Cholesterol in VLDL [Mass/Vol] 20 mg/dL Normal 5-40 [facility] Comment on above: Performed By: #### L 500.4050, L500.4100, L100.0100 #### [facility] [address] [place], [address] Triglyceride [Mass/Vol] 100 mg/dL Normal [facility] Comment on above: Result Comment: The drugs N-Acetylcysteine and Metamizole may falsely depress this assay. Serum Triglycerides Reference Interval Normal <150 mg/dL Borderline high 150 - 199 mg/dL High 200 - 499 mg/dL Very High > or = 500 mg/dL Performed By: #### L 500.4050, L500.4100, L100.0100 #### [facility] [address] [place], [address] Internal Medicine Office Vis mamie 06-21-2024 Internal Medicine Office Visit [facility] [address] [place] [address] [place] [address] OFFICE VISIT Date of Service: 06/21/24 MR#: [id number] Acct: [id number] Name: GRAZYNA UPTON Rep #: [id number] : 1970 Provider: ED espinoza Age/Sex: 54/F Location: [facility] Status: Signed Intake Vital Signs 06/16/23 12:36 06/01/24 08:28 06/21/24 13:10 Height 5 ft 4 in 5 ft 4 in 5 ft 4 in Weight: 212 lb 2 oz BMI 36.3 BP 122/60 H Blood Pressure Location Lt brachial Position Sitting Respiration 16 Pulse 90 Pulse Source Monitor Temp 98.2 F Temp Source Temporal Pulse Oximetry (%) 95 Oxygen Delivery Method room air Intake Visit Reasons: YEARLY Chief Complaint: yearly Ink Blender Required: No Accompanied by: Self Is patient in pain?: No Allergies No Known Allergies Allergy (Verified 06/21/24 13:06) Medications ???Medication ???Instructions ???Recorded ???Confirmed ???Type spironolactone 25 mg tablet 25 mg PO DAILY #90 tabs 02/07/24 06/21/24 Rx PFSH Medical History Family history of breast cancer in mother Abnormal Pap smear of cervix Surgical History History of cryosurgery Family History Mother Breast cancer Thyroid disorder Hyperlipidemia Social History household members: none current occupational status: employed 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 She is due for routine labs. She has not had any hospitalizations or ER visits. She was evaluated for abdominal pain in March 2024. She reports she had a large bowel movement and believes this was related to constipation her symptoms were relieved. She did not complete abdominal CT because she felt better. She has not had any recurrences of abdominal pain since. She has no acute concerns today. She remains on spironolactone for abnormal hair growth. Preventative Screenings: Cervical cancer-06/01/2024 demonstrated ASCUS, repeat recommended in 1 year, negative for high risk HPV Mammogram-06/01/2024, benign, repeat in 1 year DEXA scan (age 65+ unless high risk)-N/A Anxiety-no concerns Depression-no concerns HTN-blood pressure 122/60, does not monitor at home Skin cancer screening-due Colon cancer screening-declines Social History- Alcohol use-no current or former use Tobacco use-no current or former use Illicit drug use-no current or former use Lifestyle: Occupation-[employer] Diet-reports room for improvement Exercise-walks everyday 30 minutes Vaccinations- Influenza (seasonal)- declines Covid-declines Zoster (50+)-declines Pneumococcal (65+)-N/A List of current specialists: STITCH WHEELER Mobility: Ambulates independently, completes ADLs independently ROS Const Constitutional: No body ache, chills, excessive sweating, fatigue, fever(s), frequent falls, headache(s), snoring, weakness or change in appetite Eyes Eyes: No blurry vision, change in vision, eye pain or Light sensitivity ENT ENT: No abnormal hearing, ear or mastoid pain, tinnitus, nasal congestion, headache(s), neck pain or sore throat Resp Respiratory: No cough, shortness of breath, snoring or wheezing Cardio Cardiology: No chest pain at rest, chest pain with exertion, excessive sweating, dyspnea on exertion, lightheadedness, orthopnea or palpitations Gastro GI: No abdominal pain, change in bowel habits, constipation, cramping, diarrhea, nausea/dyspepsia or vomiting Genitourinary-Female : No burning urination, painful urination, urinary incontinence or urinary frequency Musc Musculoskeletal: No abnormal gait, joint pain, back pain, limited range of motion, muscle weakness, neck pain or numbness Skin Skin: No dry skin, redness, lesions, itchy eyes, rash or wounds Neuro Neurology: No abnormal gait, abnormal hearing, weakness, frequent falls, headache(s), memory loss or numbness Psych Psychiatric: No anxiety, No change in appetite, No depression, No memory loss and No Thoughts of harming yourself/Others Endo Endocrine: No cold intolerance, excessive sweating, fatigue, flushing, heat i (more content not included)... Normal [facility] Absolute lymphocyte countOrd ered By: Bev Banks on 06-18-2023 Lymphocytes Auto (Unsp spec) [#/Vol] 1.49 10*3/uL 0.83-4.51 [facility] Basophil percentageOrdered B y: Bev Banks on 06-18-2023 Basophils/100 WBC (Bld) 1.0 % 0-1 [facility] Bilirubin [Mass/Vol] 0.40 mg/dL 0.20-1.00 [facility] Comment on above: For patients on eltr ombopag therapy, use of Dimension [place] TBIL is not recommended. Chloride [Moles/Vol] 105 mmol/L 98-107 [facility] Cholesterol [Mass/Vol] 236 mg/dL <[address] [facility] Comment on above: <200 mg/dL Desirable 200-240 mg/dL Borderline >240 mg/dL High Risk Eosinophils/100 WBC (Bld) 4.0 % 0-5 [facility] Glucose [Mass/Vol] 93 mg/dL 74-106 [facility] Neutrophils (Bld) [#/Vol] 3.9 10*3/uL 2.0-7.7 [facility] Neutrophils/100 WBC (Bld) 62.3 % 47-70 [facility] Potassium [Moles/Vol] 4.1 mmol/L 3.5-5.1 [facility] Protein [Mass/Vol] 8.2 g/dL 6.4-8.2 [facility] Sodium [Moles/Vol] 138 mmol/L 136-145 [facility] Triglyceride [Mass/Vol] 113 mg/dL <199 [facility] Comment on above: The drugs N-Acetylcy steine and Metamizole may falsely depress this assay.Serum Triglycerides Reference Interval Normal <150 mg/dL Borderline high 150 - 199 mg/dL High 200 - 499 mg/dL Very High > or = 500 mg/dL WBC (Bld) [#/Vol] 6.2 10*3/uL 4.4-11.0 [facility] Blood erythrocytes count (nu mber/volume)Ordered By: Bev Banks on 06-18-2023 RBC (Bld) [#/Vol] 4.29 10*6/uL 4.2-5.4 [place] Blood hemoglobin measurement (mass/volume)Ordered By: Bev Banks on 06-18-2023 Hemoglobin (Bld) [Mass/Vol] 13.2 g/dL 12.0-15.0 [facility] Blood lymphocytes/100 leukoc ytesOrdered By: Bev Banks on 06-18-2023 Lymphocytes/100 WBC (Bld) 24.0 % 19-41 [facility] Blood monocytes/100 leukocyt esOrdered By: Bev Banks on 06-18-2023 Monocytes/100 WBC (Bld) 8.2 % 0-10 [facility] Blood platelet mean volumeOr dered By: Bev Banks on 06-18-2023 Platelet mean volume (Bld) [Entitic vol] 10.6 fL 6.2-12.0 [facility] Determination of erythrocyte mean corpuscular volume (MCV)Ordered By: Bev Banks on 06-18-2023 MCV (RBC) [Entitic vol] 94.6 fL 81-99 [facility] Hematocrit Auto (Bld) [Volum e fraction]Ordered By: Bev Banks on 06-18-2023 Hematocrit (Bld) [Volume fraction] 40.6 % 37-47 [facility] Laboratory - Chemistry and C hemistry - challengeOrdered By: Bev Banks on 06-18-2023 ALP [Catalytic activity/Vol] 117 U/L 45-117 [facility] ALT [Catalytic activity/Vol] 25 U/L 13-56 [facility] CO2 [Moles/Vol] 26.0 mmol/L 21.0-32.0 [facility] Globulin (S) [Mass/Vol] 4.7 g/dL 2.2-4.2 [facility] Urea nitrogen/Creatinine [Mass ratio] 19.5 mg/mg 10-20 [facility] Laboratory - Hematology and Cell countsOrdered By: Bev Banks on 06-18-2023 Erythrocyte distribution width (RBC) [Entitic vol] 44.5 fL 35.1-43.9 [facility] Erythrocyte distribution width (RBC) [Ratio] 12.9 % 11.6-14.6 [facility] Immature granulocytes/100 WBC (Bld) 0.500 % 0.0-0.9 [facility] Comment on above: IG% - Immature Granu locytes (promyelocytes, myelocytes and metamyelocytes) > 1% indicates that a LEFT SHIFT is Present. MCH (RBC) [Entitic mass] 30.8 pg 27.0-32.0 [facility] Nucleated RBC/100 WBC (Bld) [Ratio] 0 % 0-5 [facility] MCHC Auto (RBC) [Mass/Vol]Or dered By: Bev Banks on 06-18-2023 MCHC (RBC) [Mass/Vol] 32.5 g/dL 32-36 [facility] No Panel InformationOrdered By: Bev Banks on 06-18-2023 Estimated GFR (MDRD) Amer 82 mL/min >60 [facility] Comment on above: GFR Calc Estimated GFR (MDRD) Non-Af Amer 67 mL/min >60 [facility] Comment on above: Non- GFR Calc Platelets bldOrdered By: Billy Banks on 06-18-2023 Platelets (Bld) [#/Vol] 227 10*3/uL 150-450 [facility] Serum or plasma albumin tanika urement (mass/volume)Ordered By: Bev Banks on 06-18-2023 Albumin [Mass/Vol] 3.5 g/dL 3.2-5.0 [facility] Serum or plasma albumin/glob ulin mass ratioOrdered By: Bev Banks on 06-18-2023 Albumin/Globulin [Mass ratio] 0.7 {ratio} 0.9-2.4 [facility] Serum or plasma calcium tanika urement (mass/volume)Ordered By: Bev Banks on 06-18-2023 Calcium [Mass/Vol] 9.0 mg/dL 8.5-10.1 [facility] Serum or plasma cholesterol in HDL measurement (mass/volume)Ordered By: Bev Banks on 06-18-2023 Cholesterol in HDL [Mass/Vol] 71 mg/dL >40 [facility] Comment on above: The drugs N-Acetylcy steine and Metamizole may falsely depress this assay. Reference Range HDL <40 mg/dL Low HDL Cholesterol HDL >or= 60 mg/dL High HDL Cholesterol Serum or plasma cholesterol in VLDL measurement (mass/volume)Ordered By: Bev Banks on 06-18-2023 Cholesterol in VLDL [Mass/Vol] 23 mg/dL 5-40 [facility] Serum or plasma creatinine m easurement (mass/volume)Ordered By: Bev Banks on 06-18-2023 Creatinine [Mass/Vol] 0.92 mg/dL 0.55-1.02 [facility] Comment on above: The validity of the calculated GFR & GFRAA in patients over 70 years has not been determined. Clinical correlation is essential. Serum or plasma low density lipoprotein (LDL) cholesterol measurement (mass/volume)Ordered By: Bev Banks on 06-18-2023 Cholesterol in LDL [Mass/Vol] 142 mg/dL 0-130 [facility] Serum or plasma urea nitroge n measurement (mass/volume)Ordered By: Bev Banks on 06-18-2023 Urea nitrogen [Mass/Vol] 18 mg/dL 7-18 [facility] Thin prep Papanicolaou smear with manual screeningOrdered By: Bev Banks on 06-18-2023 Thin prep Papanicolaou smear with manual screening 18 U/L 15-37 [facility] Thin prep Papanicolaou smear with manual screening 7 5-15 [facility] Chlamydia trachomatis rRNA d etection by probe and target amplification methodOrdered By: Mónica Mcgrath on 05-25-2023 C. trachomatis rRNA CLEMENTIEN+probe Ql (Unsp spec) Negative Negative [facility] Laboratory - Microbiology an d Antimicrobial susceptibilityOrdered By: Mónica Mcgrath on 05-25-2023 N. gonorrhoeae DNA CLEMENTINE+probe Ql (Unsp spec) Negative Negative [facility] Comment on above: Performed at: =G - [id number] [place] [id number] Director: Imani Jha MD, Phone: [phone] No Panel Informationon 05-25 POC Trichomonas (Rapid) Negative [facility] CNOVon 11-28-2022 CNOV Office Visit (UCWSTR) GRAZYNA UPTON ([id number]) 1970 F Date Time Provider Department 11/28/22 4:45 PM [facility] During your visit today, we recorded the following information about you: Temperature Pulse Respiration Blood pressure 98.5 degrees 92/minute 18/minute 138/86 Weight 96.8 kg Jaci Mendoza APRN.SHEET ROLLER OPERATOR 11/28/2022 5:08 PM Signed Subjective Came in with complaints of some left upper face swelling. Patient has noticed some recent teeth discomfort but feels like it stress related to clenching. Patient denies fevers nausea vomiting chills. The history is provided by the patient. No speech language assistant was used. Edema Review of Systems Constitutional: Negative. Skin: Negative. Objective Physical Exam Constitutional: Appearance: Normal appearance. HENT: Head: Comments: Minimal swelling noted in area marked above. Some dental carries noted with minimal redness around on the left upper jaw Cardiovascular: Rate and Rhythm: Normal rate and regular rhythm. Heart sounds: Normal heart sounds. Pulmonary: Effort: Pulmonary effort is normal. Breath sounds: Normal breath sounds. Neurological: Mental Status: She is alert. 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 Desogestrel-Ethinyl Estradiol (VIORELE, 28,) 0.15-0.02 mgx21 /0.01 mg x 5 per tablet Take 1 tablet by mouth once daily. (Patient not taking: Reported on 11/28/2022) PHENAZOPYRIDINE HCL (AZO ORAL) Take by mouth. FAMILY HISTORY Problem Relation Age of Onset Lipids Mother Thyroid Mother Breast Cancer Mother Cancer Maternal Grandmother liver other (unknown) Father ?? possibly has DM Cancer Maternal Aunt lung Cancer Maternal Uncle lung Cancer Maternal Uncle leukemia Social History Tobacco Use Smoking status: Never Smokeless tobacco: Never Substance Use Topics Alcohol use: No Drug use: No ASSESSMENT/PLAN: 1. Tooth infection - ICD9: 522.4, ICD10: K04.7 Patient was placed on Keflex 4 times a day for 5 days. Patient is going to follow-up with her dentist. Differentials were allergic reaction which was ruled out due to patient not having anything new at the time. Went over patient's history and medications with her. She was educated about red flag symptoms to watch for and is going to follow-up with her dentist. Patient was okay with this care plan. Jaci Mendoza APRN.SHEET ROLLER OPERATOR Allergies As of Date: 11/28/2022 Noted Allergy Reaction PENICILLINS 09/17/2012 8 - GI Upset Date Reviewed: 11/28/2022 Reviewed by: Adriana Soliman LPN - Fully Assessed Reason for Visit: Edema [39] Cmt: (LT) sided facial swelling, nasal congestion x1 day. Primary Visit Diagnosis:Tooth infection [K04.7] Order(s):cephALEXin (KEFLEX) 500 mg capsuleTake 1 capsule by mouth four times daily for 5 days.Disp: 20 capsuleRfl: 0 Prescriptions as of 11/28/2022 - cephALEXin (KEFLEX) 500 mg capsule Take 1 capsule by mouth four times daily for 5 days. - Desogestrel-Ethinyl Estradiol (VIORELE, 28,) 0.15-0.02 mgx21 /0.01 mg x 5 per tablet Take 1 tablet by mouth once daily. - PHENAZOPYRIDINE HCL (AZO ORAL) Take by mouth. Problem List As Of Date 11/28/2022 Noted Resolved HYPERLIPIDEMIA NEC/NOS [E78.5] Routine general medical examination at a health*06/06/2009 03/24/2012 Class: Chronic Routine gynecological examination [Z01.419] 06/06/2009 03/24/2012 Class: Chronic OBESITY NOS [E66.9] 06/06/2009 Depressive Disorder, not Elsewhere Classified [*07/17/2009 Prescriptions ordered this encounter Disp Refills Start End CEPHALEXIN 500 MG CAPSULE 20 c* 0 11/28/2022 12/03/2022 Route: ORAL Sig: Take 1 capsule by mouth four times daily for 5 days. Encounter Status:Closed by JACI MENDOZA on 11/28/22 Normal [facility] Vital Signs Date Time Vital Sign Value Performing Clinician Facility 06-16-2023 12:36-0400 Body height 162.56 cm No Primary Care Physician [facility] 06-16-2023 12:36-0400 Body mass index (BMI) [Ratio] 35.6 kg/m2 No Primary Care Physician [facility] 06-16-2023 12:36-0400 Body temperature 98.3 [degF] No Primary Care Physician [facility] 06-16-2023 12:36-0400 Body weight 94.34 kg No Primary Care Physician [facility] 06-16-2023 12:36-0400 Diastolic blood pressure 80 mm[Hg] No Primary Care Physician [facility] 06-16-2023 12:36-0400 Heart rate 76 /min No Primary Care Physician [facility] 06-16-2023 12:36-0400 Respiratory rate 16 /min No Primary Care Physician [facility] 06-16-2023 12:36-0400 SaO2% (BldA) [Mass fraction] 98 % No Primary Care Physician [facility] 06-16-2023 12:36-0400 Systolic blood pressure 122 mm[Hg] No Primary Care Physician [facility] 05-25-2023 08:11-0400 Body height 162.56 cm No Primary Care Physician [facility] 05-25-2023 08:05-0400 Body mass index (BMI) [Ratio] 35.5 kg/m2 No Primary Care Physician [facility] 05-25-2023 08:05-0400 Body weight 93.95 kg No Primary Care Physician [facility] 05-25-2023 08:05-0400 Diastolic blood pressure 68 mm[Hg] No Primary Care Physician [facility] 05-25-2023 08:05-0400 Systolic blood pressure 110 mm[Hg] No Primary Care Physician [facility] 11-28-2022 16:45-0500 Body temperature 98.49 [degF] Jaci Mendoza APRN.SHEET ROLLER OPERATOR Work Phone: [facility] 11-28-2022 16:45-0500 Body weight 96.8 kg Jaci Mendoza APRN.SHEET ROLLER OPERATOR Work Phone: [facility] 11-28-2022 16:45-0500 Diastolic blood pressure 86 mm[Hg] Jaci Mendoza APRN.SHEET ROLLER OPERATOR Work Phone: [facility] 11-28-2022 16:45-0500 Heart rate 92 /min Jaci Mendoza APRN.SHEET ROLLER OPERATOR Work Phone: [facility] 11-28-2022 16:45-0500 Respiratory rate 18 /min Jaci Mendoza APRN.SHEET ROLLER OPERATOR Work Phone: [facility] 11-28-2022 16:45-0500 SaO2% (BldA) [Mass fraction] 97 % Jaci Mendoza APRN.SHEET ROLLER OPERATOR Work Phone: [facility] 11-28-2022 16:45-0500 Systolic blood pressure 138 mm[Hg] Jaci Mendoza APRN.SHEET ROLLER OPERATOR Work Phone: [facility] 05-14-2022 08:06-0400 Body height 162.[address] Ye Villanueva Work Phone: [facility] Work Phone: 05-14-2022 08:06-0400 Body mass index (BMI) [Ratio] 33.3 kg/m2 Dr. Ye Villanueva Work Phone: [facility] Work Phone: 05-14-2022 08:06-0400 Body weight 88.[address] Ye Villanueva Work Phone: [facility] Work Phone: 05-14-2022 08:06-0400 Diastolic blood pressure 72 mm[Hg] Dr. Ye Villanueva Work Phone: [facility] Work Phone: 05-14-2022 08:06-0400 Systolic blood pressure 110 mm[Hg] Dr. Ye Villanueva Work Phone: [facility] Work Phone: Encounters Encounter Date Encounter Type Care Provider Facility Start: 06-06-2025 ambulatory [facility] Facility :[facility] Start: 07-17-2024 Encounter for genera l adult medical examination without abnormal findings [place] [facility] Start: 06-21-2024 End: 06-22-2024 ambulatory [facility] Facility:[facility] Start: 06-18-2023 End: 06-18-2023 ambulatory No Primary Care Physician [facility] Work Phone: Start: 06-18-2023 End: 06-18-2023 Patient encounter procedure No Primary Care Physician [facility] Work Phone: Start: 06-16-2023 End: 06-16-2023 Patient encounter procedure No Primary Care Physician [facility] Work Phone: Start: 05-25-2023 End: 05-25-2023 ambulatory No Primary Care Physician [facility] Work Phone: Start: 05-25-2023 End: 05-25-2023 Patient encounter procedure No Primary Care Physician [facility] Work Phone: Start: 11-28-2022 End: 11-28-2022 ambulatory Facility:[facility] Start: 11-28-2022 End: 11-28-2022 Patient encounter procedure Jaci Mendoza APRN.SHEET ROLLER OPERATOR Work Phone: [facility] Comment on above: Tooth infection (Nandini ju Dx) Start: 05-14-2022 End: 05-14-[address] Ye Villanueva Work Phone: [facility] Procedures Date Procedure Procedure Detail Performing Clinician Start: 05-25-2023 Screening mammography N o Primary Care Physician Start: 05-14-2022 Screening mammography Rhoda Villanueva Work Phone: Start: 08-13-2017 Mammography Jaci Josafat WALKER Work Phone: Plan of Treatment Date Care Activity Detail Author Start: 07-24-2022 Influenza vaccination INFLUENZA (#1) [facility] Start: 05-02-2022 LIPID SCREEN LIPID SCREEN [facility] Start: 04-30-2022 HPV TESTING HPV TESTING [facility] Start: 04-30-2022 PAP TESTING PAP TESTING [facility] Start: 04-26-2021 COVID-19 VACCINE (3 - Booster for Pfizer series) COVID-19 VACCINE (3 - Booster for Pfizer series) [facility] Start: 05-02-2020 DIABETES SCREEN DIABETES SCREEN [facility] Start: 2019 SHINGRIX VACCINE (1 of 2) SHINGRIX V ACCINE (1 of 2) [facility] Start: 08-13-2018 Mammography MAMMOGRAM [facility] Start: 2014 COLOGUARD (FIT-DNA) COLOGUARD (FIT-D NA) [facility] Start: 2014 Colonoscopy COLONOSCOPY [facility] Start: 2014 COLORECTAL CANCER SCREENING COLORECTAL CANCER SCREENING [facility] Start: [address] COLONOGRAPHY [facility] Start: 2014 FECAL OCCULT BLOOD FECAL OCCULT BLOO D [facility] Start: 2014 SIGMOIDOSCOPY SIGMOIDOSCOPY [facility] Start: 1988 Urine microalbumin profile DTAP,TDAP ,TD (1 - Tdap) [facility] Start: 1987 HEPATITIS C SCREENING HEPATITIS C SC ALEXANDRNING [facility] Start: 1987 HIV SCREENING HIV SCREENING [facility] Start: 1969 HEPATITIS B (1 of 3 - 3-dose series) HEPATITIS B (1 of 3 - 3-dose series) [facility] Immunizations Immunization Date Immunization Notes Care Provider Fa yaw 03-01-2021 Covid (Pfizer) Dr. Ye thompson Work Phone: [facility] 02-08-2021 Covid (Pfizer) Dr. Ye thompson Work Phone: [facility] Payers Date Payer Category Payer Self-pay [id number] 2022 Unknown [id number] 2022 Unknown [employer] PPO [id number] 2022-Present [phone] [id number] [place] [address] PPO [id number] Unknown [id number] Unknown [facility] [employer] [facility] [id number] Unknown [id number] Unknown [id number] Unknown [id number] Unknown [id number] Social History Date Type Detail Facility Start: 05-14-2022 End: 06-16-2023 Tobacco smoking status NHIS Unknown if ever smoked [facility] Start: 1970 Sex Assigned At Female [facility] Start: 09-04-2011 Tobacco smoking stat us NHIS Never smoked tobacco [facility] Start: 09-04-2011 Tobacco use and exposure Smokeless tobacco non-user [facility] Start: 11-28-2022 Alcohol intake Current non-dr murray of alcohol (finding) [facility] Start: 1970 Sex Assigned At Not on file [facility] Progress note 11-28-2022 Note Date & Type Note Facility 11-28-2022 Note HNO ID: [id number] Author: Jaci Mendoza APRN.SHEET ROLLER OPERATOR Service: ? Author Type: Nurse Practitioner Type: Progress Notes Filed: 11/28/2022 5:08 PM Note Text: Subjective Came in with complaints of some left upper face swelling. Patient has noticed some recent teeth discomfort but feels like it stress related to clenching. Patient denies fevers nausea vomiting chills. The history is provided by the patient. No speech language assistant was used. Edema Review of Systems Constitutional: Negative. Skin: Negative. Objective Physical Exam Constitutional: Appearance: Normal appearance. HENT: Head: Comments: Minimal swelling noted in area marked above. Some dental carries noted with minimal redness around on the left upper jaw Cardiovascular: Rate and Rhythm: Normal rate and regular rhythm. Heart sounds: Normal heart sounds. Pulmonary: Effort: Pulmonary effort is normal. Breath sounds: Normal breath sounds. Neurological: Mental Status: She is alert. 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 Desogestrel-Ethinyl Estradiol (VIORELE, 28,) 0.15-0.02 mgx21 /0.01 mg x 5 per tablet Take 1 tablet by mouth once daily. (Patient not taking: Reported on 11/28/2022) PHENAZOPYRIDINE HCL (AZO ORAL) Take by mouth. FAMILY HISTORY Problem Relation Age of Onset Lipids Mother Thyroid Mother Breast Cancer Mother Cancer Maternal Grandmother liver other (unknown) Father ?? possibly has DM Cancer Maternal Aunt lung Cancer Maternal Uncle lung Cancer Maternal Uncle leukemia Social History Tobacco Use Smoking status: Never Smokeless tobacco: Never Substance Use Topics Alcohol use: No Drug use: No ASSESSMENT/PLAN: 1. Tooth infection - ICD9: 522.4, ICD10: K04.7 Patient was placed on Keflex 4 times a day for 5 days. Patient is going to follow-up with her dentist. Differentials were allergic reaction which was ruled out due to patient not having anything new at the time. Went over patient's history and medications with her. She was educated about red flag symptoms to watch for and is going to follow-up with her dentist. Patient was okay with this care plan. Jaci Mendoza APRN.ATA [facility] History of Present illness Narrative 11-28-2022 Jaci Mendoza APRN.ATA - 11/28/2022 5:03 PM EST Note Date & Type Note Facility 11-28-2022 History of Presen t illness Narrative Images from the original note were not included. Subjective Came in with complaints of some left upper face swelling. Patient has noticed some recent teeth discomfort but feels like it stress related to clenching. Patient denies fevers nausea vomiting chills. The history is provided by the patient. No speech language assistant was used. Edema Review of Systems Constitutional: Negative. Skin: Negative. Objective Physical Exam Constitutional: Appearance: Normal appearance. HENT: Head: Comments: Minimal swelling noted in area marked above. Some dental carries noted with minimal redness around on the left upper jaw Cardiovascular: Rate and Rhythm: Normal rate and regular rhythm. Heart sounds: Normal heart sounds. Pulmonary: Effort: Pulmonary effort is normal. Breath sounds: Normal breath sounds. Neurological: Mental Status: She is alert. 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 Desogestrel-Ethinyl Estradiol (VIORELE, 28,) 0.15-0.02 mgx21 /0.01 mg x 5 per tablet Take 1 tablet by mouth once daily. (Patient not taking: Reported on 11/28/2022) PHENAZOPYRIDINE HCL (AZO ORAL) Take by mouth. FAMILY HISTORY Problem Relation Age of Onset Lipids Mother Thyroid Mother Breast Cancer Mother Cancer Maternal Grandmother liver other (unknown) Father ?? possibly has DM Cancer Maternal Aunt lung Cancer Maternal Uncle lung Cancer Maternal Uncle leukemia Social History Tobacco Use Smoking status: Never Smokeless tobacco: Never Substance Use Topics Alcohol use: No Drug use: No ASSESSMENT/PLAN: 1. Tooth infection - ICD9: 522.4, ICD10: K04.7 Patient was placed on Keflex 4 times a day for 5 days. Patient is going to follow-up with her dentist. Differentials were allergic reaction which was ruled out due to patient not having anything new at the time. Went over patient's history and medications with her. She was educated about red flag symptoms to watch for and is going to follow-up with her dentist. Patient was okay with this care plan. Jaci Mendoza APRN.ATA documented in this encounter [facility] History of Past illness Narrative 06-06-2009 Note Date & Type Note Facility 06-06-2009 History of Past i llness Narrative Problem Noted Date Resolved Date Routine general medical exam ination at a health care facility 06/06/2009 03/24/2012 Overview: 06/06/2009, established from [facility]ue[facility] Routine gynecological examination 06/06/2009 03/24/2012 Overview: [facility] documented as of this encounter (statuses as of 11/29/2022) [facility] Chief complaint+Reason for visit Narrative Note Date & Type Note Facility Chief complaint+Reason for visit Narrative Reason for Visit Counseling for hormo ne replacement therapy Family history of breast cancer in mother Encounter for routine gynecological examination [facility] Work Phone: Evaluation note Note Date & Type Note Facility Evaluation note Diagnosis Onset Date Counseling for hormone replacement therapy acute Family history of breast cancer in mother acute Encounter for routine gyneco logical examination noneactive [facility] Work Phone: Evaluation note Note Date & Type Note Facility Evaluation note Diagnosis Tooth infection- Primary Acute apical periodontitis of pulpal origin documented in this encounter [facility] Evaluation note Note Date & Type Note Facility Evaluation note Diagnosis Onset Date Possible exposure to STD non eactive Encounter for routine gyneco logical examination noneactive Monilial vaginitis noneactiv e [facility] Work Phone: Evaluation note Note Date & Type Note Facility Evaluation note Diagnosis Onset Date Possible exposure to STD non eactive Encounter for routine gyneco logical examination noneactive Monilial vaginitis noneactiv e Immunization declined noneac tive Screening for colon cancer n oneactive Screening for cardiovascular condition noneactive Establishing care with new d octor, encounter for noneactive Annual physical exam noneact teresa [facility] Work Phone: Family History No Family History Records Found Relationship Condition Age at Onset Recorded Date/T katherine mother Malignant neoplasm of breast Unknown Disorder of thyroid Unknown Hyperlipidemia Unknown Summary Purpose Advance Directives No Advanced Directives Records FoundNo Advanced Directives Records Found Chief Complaint and Reason for Visit Chief Complaint SCREENING Annual (MANAGER CARE) Reason for Visit Possible exposure to STD Encounter for routine gynecological examination Monilial vaginitis Chief Complaint SCREENING Annual (MANAGER CARE) EST NEW PT INT LABS Reason for Visit Possible exposure to STD Encounter for routine gynecological examination Monilial vaginitis Immunization declined Screening for colon cancer Screening for cardiovascular condition Establishing care with new doctor, encounter for Annual physical exam Additional Source Comments Goals (unrecognized section and content) Goals may be documented in a n alternate sectionGoals may be documented in an alternate sectionGoals may be documented in an alternate section INFORMATION SOURCE (unrecogn ized section and content) DATE CREATED AUTHOR 11/29/2022 [facility] DATE CREATED AUTHOR AUTHOR'S ORGANIZ ATION 06/04/2025 [facility] Source Comments (unrecognize d section and content) In the event this informatio n is protected by the Federal Confidentiality of Alcohol and Drug Abuse Patient Records regulations: The Federal rules restrict any use of the information to criminally investigate or prosecute any alcohol or drug abuse patient.[facility] Reason for Visit (unrecogniz ed section and content) Reason Comments Edema (LT) sided facial sw elling, nasal congestion x1 day. Care Teams (unrecognized sec tion and content) Team Status: Active Member Role Status Dates Dr. Ye Villanueva MD Family Provider Active No Primary Care Physician Primary Care Provider Active Team Status: Inactive Member Role Status Dates No Primary Care Physician Primary Care Provider, Refer ring Provider Active Mónica Mcgrath HVAC SERVICE TECH, HVAC SERVICE TECH-C Attending Provider Active Team Status: Inactive Member Role Status Dates No Primary Care Physician Primary Care Provider Active Mónica Mcgrath HVAC SERVICE TECH, HVAC SERVICE TECH-C Attending Provider, Referring Provider Active Team Status: Active Member Role Status Dates Dr. Ye Villanueva MD Family Provider Active Dr. Bev Banks MD Primary Care Provider Active Team Status: Inactive Member Role Status Dates No Primary Care Physician Primary Care Provider, Refer ring Provider Active Dr. Bev Banks MD Attending Provider Active Team Status: Inactive Member Role Status Dates Dr. Bev Banks MD Primary Care Pro vider, Attending Provider, Referring Provider Active FOR RECORDS PERTAINING TO PATIENTS WHO ARE OR HAVE BEEN ENROLLED IN A CHEMICAL DEPENDENCY/SUBSTANCEABUSE PROGRAM, SOME INFORMATION MAY BE OMITTED. This clinical summary was aggregated from multiple sources. Caution should be exercised in using it in the provision of clinical care. This summary normalizes information from multiple sources, and as a consequence, information in this document may materially change the coding, format and clinical context of patient data. In addition, data may be omitted in some cases. CLINICAL DECISIONS SHOULD BE BASED ON THE PRIMARY CLINICAL RECORDS. [employer] provides no warranty or guarantee of the accuracy or completeness of information in this document.
--- OUTSIDE RECORDS SUMMARY | 2025-06-06 07:09 | XMS RPT_ITS | CCD ---
Author Organization [facility] Care Team Providers Care Drywaller Name Role Phone Dr. Ye Villanueva Referring Provider Alcides COOLING PIPE INSPECTOR, COOLING PIPE INSPECTOR-C Mónica Attending Provider Care Physician, No Primary Primary Care Provider Unavailable Unavailable Primary Care Provider Unavailabl e Care Physician, No Primary Primary Care Provider Unavailable Care Physician, No Primary Referring Provider Un available Alcides COOLING PIPE INSPECTOR, COOLING PIPE INSPECTOR-C Mónica Attending Provider [phone] Dr. Bev Banks Attending Provider [phone] [place], Bev Primary Care Unavailable July Ny Attending Unavailable Darren Bev Referring Unavailable [place], Bev Primary Care Unavailable Alcides COOLING PIPE INSPECTORMónica Attending Unavailable Darren, Bev Referring Unavailable Darren, Bev Primary Care Unavailable July Ny Referring Unavailable July Ny Attending Unavailable [place], Bev Primary Care Unavailable Alcides COOLING PIPE INSPECTORMónica Referring Unavailable Alcides COOLING PIPE INSPECTORMónica Attending Unavailable Allergies Allergy Classification Reported Allergen(s) Allergy Type Date of Onset Reaction(s) Facility (2 sources) Penicillins; Translations: [PENICILLINS] Propensity to adverse reactions to drug (disorder) 2 GI Upset [facility] Repository Medications Current Medications Medication Drug [...] Absolute Lymph 1.92 X10 3/uL Normal 0.83-4.51 [facility] Comment on above: Performed By: #### L 500.4050, L500.4100, L100.0100 #### [facility] [address] [place], [address] Absolute Neut 3.1 X10 3/uL Normal 2.0-7.7 [facility] Comment on above: Performed By: #### L 500.4050, L500.4100, L100.0100 #### [facility] [address] [place], [address] Basophils/100 WBC (Bld) 1.0 % Normal 0-1 [facility] Comment on above: Performed By: #### L 500.4050, L500.4100, L100.0100 #### [facility] [address] [place], [address] Eosinophils/100 WBC (Bld) 5.6 % High 0-5 [facility] Comment on above: Performed By: #### L 500.4050, L500.4100, L100.0100 #### [facility] [address] [place], [address] Erythrocyte distribution width (RBC) [Ratio] 12.9 % Normal 11.6-14.6 [facility] Comment on above: Performed By: #### L 500.4050, L500.4100, L100.0100 #### [facility] [address] [place], [address] Hematocrit (Bld) [Volume fraction] 38.5 % Normal 37-47 [facility] Comment on above: Performed By: #### L 500.4050, L500.4100, L100.0100 #### [facility] [address] [place], [address] Hemoglobin (Bld) [Mass/Vol] 12.6 g/dL Normal 12.0-15.0 [facility] Comment on above: Performed By: #### L 500.4050, L500.4100, L100.0100 #### [facility] [address] [place], [address] IG% 0.300 Normal 0.0-0.9 [facility] Comment on above: Result Comment: IG% - Immature Granulocytes (promyelocytes, myelocytes and metamyelocytes) > 1% indicates that a LEFT SHIFT is Present. Performed By: #### L 500.4050, L500.4100, L100.0100 #### [facility] [address] [place], [address] Lymphocytes/100 WBC (Bld) 32.4 % Normal 19-41 [facility] Comment on above: Performed By: #### L 500.4050, L500.4100, L100.0100 #### [facility] [address] [place], [address] MCH (RBC) [Entitic mass] 29.6 pg Normal 27.0-32.0 [facility] Comment on above: Performed By: #### L 500.4050, L500.4100, L100.0100 #### [facility] [address] [place], [address] MCHC (RBC) [Mass/Vol] 32.7 g/dL Normal 32-36 [facility] Comment on above: Performed By: #### L 500.4050, L500.4100, L100.0100 #### [facility] [address] [place], [address] MCV (RBC) [Entitic vol] 90.4 fL Normal 81-99 [facility] Comment on above: Performed By: #### L 500.4050, L500.4100, L100.0100 #### [facility] [address] [place], [address] Monocytes/100 WBC (Bld) 7.8 % Normal 0-10 [facility] Comment on above: Performed By: #### L 500.4050, L500.4100, L100.0100 #### [facility] [address] [place], [address] Neutrophils/100 WBC (Bld) 52.9 % Normal 47-70 [facility] Comment on above: Performed By: #### L 500.4050, L500.4100, L100.0100 #### [facility] [address] [place], [address] Nucleated RBC (Bld) [#/Vol] 0 10*3/uL Normal 0-5 [facility] Comment on above: Performed By: #### L 500.4050, L500.4100, L100.0100 #### [facility] [address] [place], [address] Platelet mean volume (Bld) [Entitic vol] 10.8 fL Normal 6.2-12.0 [facility] Comment on above: Performed By: #### L 500.4050, L500.4100, L100.0100 #### [facility] [address] [place], [address] Platelets (Bld) [#/Vol] 244 10*3/uL Normal 150-450 [facility] Comment on above: Performed By: #### L 500.4050, L500.4100, L100.0100 #### [facility] [address] [place], [address] RBC (Bld) [#/Vol] 4.26 10*6/uL Normal 4.2-5.4 [facility] Comment on above: Performed By: #### L 500.4050, L500.4100, L100.0100 #### [facility] [address] [place], [address] RDW SD 42.5 fl Normal 35.1-43.9 [facility] Comment on above: Performed By: #### L 500.4050, L500.4100, L100.0100 #### [facility] [address] [place], [address] WBC (Bld) [#/Vol] 5.9 10*3/uL Normal 4.4-11.0 [facility] Comment on above: Performed By: #### L 500.4050, L500.4100, L100.0100 #### [facility] [address] [place], [address] Comprehensive Metabolic Prof [facility] 06-22-2024 Albumin [Mass/Vol] 3.4 g/dL Normal 3.2-5.0 [facility] Comment on above: Performed By: #### L 500.4050, L500.4100, L100.0100 #### [facility] [address] [place], [address] Albumin/Globulin [Mass ratio] 0.8 {ratio} Low 0.9-2.4 [facility] Comment on above: Performed By: #### L 500.4050, L500.4100, L100.0100 #### [facility] [address] [place], [address] ALK P 107 U/L Normal 45-117 [facility] Comment on above: Performed By: #### L 500.4050, L500.4100, L100.0100 #### [facility] [address] [place], [address] ALT [Catalytic activity/Vol] 17 U/L Normal 13-56 [facility] Comment on above: Performed By: #### L 500.4050, L500.4100, L100.0100 #### [facility] [address] [place], [address] AST [Catalytic activity/Vol] 17 U/L Normal 15-37 [facility] Comment on above: Performed By: #### L 500.4050, L500.4100, L100.0100 #### [facility] [address] [place], [address] Bilirubin [Mass/Vol] 0.30 mg/dL Normal 0.20-1.00 [facility] Comment on above: Result Comment: For patients on eltrombopag therapy, use of Dimension [place] TBIL is not recommended. Performed By: #### L 500.4050, L500.4100, L100.0100 #### [facility] [address] [place], [address] BUN/CRE 16.9 RATIO Normal 10-20 [facility] Comment on above: Performed By: #### L 500.4050, L500.4100, L100.0100 #### [facility] [address] [place], [address] CA,Total 8.8 mg/dL Normal 8.5-10.1 [facility] Comment on above: Performed By: #### L 500.4050, L500.4100, L100.0100 #### [facility] [address] [place], [address] Chloride [Moles/Vol] 107 mmol/L Normal 98-107 [facility] Comment on above: Performed By: #### L 500.4050, L500.4100, L100.0100 #### [facility] [address] [place], [address] CO2 [Moles/Vol] 29.0 mmol/L Normal 21.0-32.0 [facility] Comment on above: Performed By: #### L 500.4050, L500.4100, L100.0100 #### [facility] [address] [place], [address] Creatinine [Mass/Vol] 0.89 mg/dL Normal 0.55-1.02 [facility] Comment on above: Result Comment: The validity of the calculated GFR GFRAA in patients over 70 years has not been determined. Clinical correlation is essential. Performed By: #### L 500.4050, L500.4100, L100.0100 #### [facility] [address] [place], [address] EST GFR - AA 85 mL/min Normal >60 [facility] Comment on above: Result Comment: Afri can Vietnamese GFR Calc Performed By: #### L 500.4050, L500.4100, L100.0100 #### [facility] [address] [place], [address] GAP 2 Low 5-15 [facility] Comment on above: Performed By: #### L 500.4050, L500.4100, L100.0100 #### [facility] [address] [place], [address] GFR/1.73 sq M.predicted among non-blacks MDRD (S/P/Bld) [Vol rate/Area] 70 mL/min/{1.73_m2} Normal >60 [facility] Comment on above: Result Comment: Non- GFR Calc Performed By: #### L 500.4050, L500.4100, L100.0100 #### [facility] [address] [place], [address] Globulin (S) [Mass/Vol] 4.3 g/dL High 2.2-4.2 [facility] Comment on above: Performed By: #### L 500.4050, L500.4100, L100.0100 #### [facility] [address] [place], [address] Glucose [Mass/Vol] 86 mg/dL Normal 74-106 [facility] Comment on above: Performed By: #### L 500.4050, L500.4100, L100.0100 #### [facility] [address] [place], [address] Potassium [Moles/Vol] 4.2 mmol/L Normal 3.5-5.1 [facility] Comment on above: Performed By: #### L 500.4050, L500.4100, L100.0100 #### [facility] [address] [place], [address] Sodium [Moles/Vol] 138 mmol/L Normal 136-145 [facility] Comment on above: Performed By: #### L 500.4050, L500.4100, L100.0100 #### [facility] [address] [place], [address] T PROT 7.7 g/dL Normal 6.4-8.2 [facility] Comment on above: Performed By: #### L 500.4050, L500.4100, L100.0100 #### [facility] [address] [place], [address] Urea nitrogen [Mass/Vol] 15 mg/dL Normal 7-18 [facility] Comment on above: Performed By: #### L 500.4050, L500.4100, L100.0100 #### [facility] [address] [place], [address] Lipid Profileon 06-22-2024 Cholesterol [Mass/Vol] 202 mg/dL High 200 [facility] Comment on above: Result Comment: <200 mg/dL Desirable 200-240 mg/dL Borderline >240 mg/dL High Risk Performed By: #### L 500.4050, L500.4100, L100.0100 #### [facility] [address] [place], [address] Cholesterol in HDL [Mass/Vol] 69 mg/dL Normal [facility] Comment on above: Result Comment: The drugs N-Acetylcysteine and Metamizole may falsely depress this assay. Reference Range HDL <40 mg/dL Low HDL Cholesterol HDL >or= 60 mg/dL High HDL Cholesterol Performed By: #### L 500.4050, L500.4100, L100.0100 #### [facility] [address] [place], [address] Cholesterol in LDL [Mass/Vol] 113 mg/dL Normal 0-130 [facility] Comment on above: Performed By: #### L 500.4050, L500.4100, L100.0100 #### [facility] [address] [place], [address] Cholesterol in VLDL [Mass/Vol] 20 mg/dL Normal 5-40 [facility] Comment on above: Performed By: #### L 500.4050, L500.4100, L100.0100 #### [facility] [address] [place], [address] Triglyceride [Mass/Vol] 100 mg/dL Normal [facility] Comment on above: Result Comment: The drugs N-Acetylcysteine and Metamizole may falsely depress this assay. Serum Triglycerides Reference Interval Normal <150 mg/dL Borderline high 150 - 199 mg/dL High 200 - 499 mg/dL Very High > or = 500 mg/dL Performed By: #### L 500.4050, L500.4100, L100.0100 #### [facility] [address] 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 Normal [facility] Absolute lymphocyte countOrd ered By: Bev Banks on 06-18-2023 Lymphocytes Auto (Unsp spec) [#/Vol] 1.49 10*3/uL 0.83-4.51 [facility] Basophil percentageOrdered B y: Bev Banks on 06-18-2023 Basophils/100 WBC (Bld) 1.0 % 0-1 [facility] Bilirubin [Mass/Vol] 0.40 mg/dL 0.20-1.00 [facility] Comment on above: For patients on eltr ombopag therapy, use of Dimension [place] TBIL is not recommended. Chloride [Moles/Vol] 105 mmol/L 98-107 [facility] Cholesterol [Mass/Vol] 236 mg/dL <200 [facility] Comment on above: <200 mg/dL Desirable 200-240 mg/dL Borderline >240 mg/dL High Risk Eosinophils/100 WBC (Bld) 4.0 % 0-5 [facility] Glucose [Mass/Vol] 93 mg/dL 74-106 [facility] Neutrophils (Bld) [#/Vol] 3.9 10*3/uL 2.0-7.7 [facility] Neutrophils/100 WBC (Bld) 62.3 % 47-70 [facility] Potassium [Moles/Vol] 4.1 mmol/L 3.5-5.1 [facility] Protein [Mass/Vol] 8.2 g/dL 6.4-8.2 [facility] Sodium [Moles/Vol] 138 mmol/L 136-145 [facility] Triglyceride [Mass/Vol] 113 mg/dL <199 [facility] Comment on above: The drugs N-Acetylcy steine and Metamizole may falsely depress this assay.Serum Triglycerides Reference Interval Normal <150 mg/dL Borderline high 150 - 199 mg/dL High 200 - 499 mg/dL Very High > or = 500 mg/dL WBC (Bld) [#/Vol] 6.2 10*3/uL 4.4-11.0 [facility] Blood erythrocytes count (nu mber/volume)Ordered By: Bev Banks on 06-18-2023 RBC (Bld) [#/Vol] 4.29 10*6/uL 4.2-5.4 [facility] Blood hemoglobin measurement (mass/volume)Ordered By: Bev Banks on 06-18-2023 Hemoglobin (Bld) [Mass/Vol] 13.2 g/dL 12.0-15.0 [facility] Blood lymphocytes/100 leukoc ytesOrdered By: Bev Banks on 06-18-2023 Lymphocytes/100 WBC (Bld) 24.0 % 19-41 [facility] Blood monocytes/100 leukocyt esOrdered By: Bev Banks on 06-18-2023 Monocytes/100 WBC (Bld) 8.2 % 0-10 [facility] Blood platelet mean volumeOr dered By: Bev Banks on 06-18-2023 Platelet mean volume (Bld) [Entitic vol] 10.6 fL 6.2-12.0 [facility] Determination of erythrocyte mean corpuscular volume (MCV)Ordered By: Bev Banks on 06-18-2023 MCV (RBC) [Entitic vol] 94.6 fL 81-99 [facility] Hematocrit Auto (Bld) [Volum e fraction]Ordered By: Bev Banks on 06-18-2023 Hematocrit (Bld) [Volume fraction] 40.6 % 37-47 [facility] - Chemistry and C hemistry - challengeOrdered By: Bev Banks on 06-18-2023 ALP [Catalytic activity/Vol] 117 U/L 45-117 [facility] ALT [Catalytic activity/Vol] 25 U/L 13-56 [facility] CO2 [Moles/Vol] 26.0 mmol/L 21.0-32.0 [facility] Globulin (S) [Mass/Vol] 4.7 g/dL 2.2-4.2 [facility] Urea nitrogen/Creatinine [Mass ratio] 19.5 mg/mg 10-20 [facility] - Hematology and Cell countsOrdered By: Bev Banks on 06-18-2023 Erythrocyte distribution width (RBC) [Entitic vol] 44.5 fL 35.1-43.9 [facility] Erythrocyte distribution width (RBC) [Ratio] 12.9 % 11.6-14.6 [facility] Immature granulocytes/100 WBC (Bld) 0.500 % 0.0-0.9 [facility] Comment on above: IG% - Immature Granu locytes (promyelocytes, myelocytes and metamyelocytes) > 1% indicates that a LEFT SHIFT is Present. MCH (RBC) [Entitic mass] 30.8 pg 27.0-32.0 [facility] Nucleated RBC/100 WBC (Bld) [Ratio] 0 % 0-5 [facility] MCHC Auto (RBC) [Mass/Vol]Or dered By: Bev Banks on 06-18-2023 MCHC (RBC) [Mass/Vol] 32.5 g/dL 32-36 [facility] No Panel InformationOrdered By: Bev Banks on 06-18-2023 Estimated GFR (MDRD) Amer 82 mL/min >60 [facility] Comment on above: GFR Calc Estimated GFR (MDRD) Non-Af Amer 67 mL/min >60 [facility] Comment on above: Non- GFR Calc Platelets bldOrdered By: Billy Banks on 06-18-2023 Platelets (Bld) [#/Vol] 227 10*3/uL 150-450 [facility] Serum or plasma albumin tanika urement (mass/volume)Ordered By: Bev Banks on 06-18-2023 Albumin [Mass/Vol] 3.5 g/dL 3.2-5.0 [facility] Serum or plasma albumin/glob ulin mass ratioOrdered By: Bev Banks on 06-18-2023 Albumin/Globulin [Mass ratio] 0.7 {ratio} 0.9-2.4 [facility] Serum or plasma calcium tanika urement (mass/volume)Ordered By: Bev Banks on 06-18-2023 Calcium [Mass/Vol] 9.0 mg/dL 8.5-10.1 [facility] Serum or plasma cholesterol in HDL measurement (mass/volume)Ordered By: Bev Banks on 06-18-2023 Cholesterol in HDL [Mass/Vol] 71 mg/dL >40 [facility] Comment on above: The drugs N-Acetylcy steine and Metamizole may falsely depress this assay. Reference Range HDL <40 mg/dL Low HDL Cholesterol HDL >or= 60 mg/dL High HDL Cholesterol Serum or plasma cholesterol in VLDL measurement (mass/volume)Ordered By: Bev Banks on 06-18-2023 Cholesterol in VLDL [Mass/Vol] 23 mg/dL 5-40 [facility] Serum or plasma creatinine m easurement (mass/volume)Ordered By: Bev Banks on 06-18-2023 Creatinine [Mass/Vol] 0.92 mg/dL 0.55-1.02 [facility] Comment on above: The validity of the calculated GFR & GFRAA in patients over 70 years has not been determined. Clinical correlation is essential. Serum or plasma low density lipoprotein (LDL) cholesterol measurement (mass/volume)Ordered By: Bev Banks on 06-18-2023 Cholesterol in LDL [Mass/Vol] 142 mg/dL 0-130 [facility] Serum or plasma urea nitroge n measurement (mass/volume)Ordered By: Bev Banks on 06-18-2023 Urea nitrogen [Mass/Vol] 18 mg/dL 7-18 [facility] Thin prep Papanicolaou smear with manual screeningOrdered By: Bev Banks on 06-18-2023 Thin prep Papanicolaou smear with manual screening 18 U/L 15-37 [facility] Thin prep Papanicolaou smear with manual screening 7 5-15 [facility] Chlamydia trachomatis rRNA d etection by probe and target amplification methodOrdered By: Mónica Mcgrath on 05-25-2023 C. trachomatis rRNA CLEMENTINE+probe Ql (Unsp spec) Negative Negative [facility] - Microbiology an d Antimicrobial susceptibilityOrdered By: Mónica Mcgrath on 05-25-2023 N. gonorrhoeae DNA CLEMENTINE+probe Ql (Unsp spec) Negative Negative [facility] Comment on above: Performed at: =G - L [address]an [facility] [id number] [place] [id number] Director: Imani Jha MD, Phone: [phone] No Panel Informationon 05-25 POC Trichomonas (Rapid) Negative [facility] CNOVon 11-28-2022 CNOV Office Visit (UCWSTR) GRAZYNA UPTON ([id number]) 1970 F Date Time Provider Department 11/28/22 4:45 PM [facility] During your visit today, we recorded the following information about you: Temperature Pulse Respiration Blood pressure 98.5 degrees 92/minute 18/minute 138/86 Weight 96.8 kg Jaci Mendoza APRN.ARMED SECURITY PROFESSIONAL 11/28/2022 5:08 PM Signed Subjective Came in with complaints of some left upper face swelling. Patient has noticed some recent teeth discomfort but feels like it stress related to clenching. Patient denies fevers nausea vomiting chills. The history is provided by the patient. No conference interpreter was used. Edema Review of Systems Constitutional: [...] OR EXPOSED ROOT (ELEVATION AND/OR FORCEPS REMOVAL) [place] teeth PAST SURGICAL HISTORY OF 1989 CRYOTHERAPY [...] okay with this care plan. Jaci Mendoza APRN.ARMED SECURITY PROFESSIONAL Allergies As of Date: 11/28/2022 Noted Allergy [...] Status:Closed by JACI MENDOZA on 11/28/22 Normal [facility] Vital Signs Date Time Vital Sign Value Performing Clinician Facility 06-16-2023 12:36-0400 Body height 162.56 cm No Primary Care Physician [facility] 06-16-2023 12:36-0400 Body mass index (BMI) [Ratio] 35.6 kg/m2 No Primary Care Physician [facility] 06-16-2023 12:36-0400 Body temperature 98.3 [degF] No Primary Care Physician [facility] 06-16-2023 12:36-0400 Body weight 94.34 kg No Primary Care Physician [facility] 06-16-2023 12:36-0400 Diastolic blood pressure 80 mm[Hg] No Primary Care Physician [facility] 06-16-2023 12:36-0400 Heart rate 76 /min No Primary Care Physician [facility] 06-16-2023 12:36-0400 Respiratory rate 16 /min No Primary Care Physician [facility] 06-16-2023 12:36-0400 SaO2% (BldA) [Mass fraction] 98 % No Primary Care Physician [facility] 06-16-2023 12:36-0400 Systolic blood pressure 122 mm[Hg] No Primary Care Physician [facility] 05-25-2023 08:11-0400 Body height 162.56 cm No Primary Care Physician [facility] 05-25-2023 08:05-0400 Body mass index (BMI) [Ratio] 35.5 kg/m2 No Primary Care Physician [facility] 05-25-2023 08:05-0400 Body weight 93.95 kg No Primary Care Physician [facility] 05-25-2023 08:05-0400 Diastolic blood pressure 68 mm[Hg] No Primary Care Physician [facility] 05-25-2023 08:05-0400 Systolic blood pressure 110 mm[Hg] No Primary Care Physician [facility] 11-28-2022 16:45-0500 Body temperature 98.49 [degF] Jaci Mendoza APRN.ARMED SECURITY PROFESSIONAL Work Phone: [facility] 11-28-2022 16:45-0500 Body weight 96.8 kg Jaci Mendoza APRN.ARMED SECURITY PROFESSIONAL Work Phone: [facility] 11-28-2022 16:45-0500 Diastolic blood pressure 86 mm[Hg] Jaci Mendoza APRN.ARMED SECURITY PROFESSIONAL Work Phone: [facility] 11-28-2022 16:45-0500 Heart rate 92 /min Jaci Mendoza APRN.ARMED SECURITY PROFESSIONAL Work Phone: [facility] 11-28-2022 16:45-0500 Respiratory rate 18 /min Jaci Mendoza APRN.ARMED SECURITY PROFESSIONAL Work Phone: [facility] 11-28-2022 16:45-0500 SaO2% (BldA) [Mass fraction] 97 % Jaci Mendoza APRN.ARMED SECURITY PROFESSIONAL Work Phone: [facility] 11-28-2022 16:45-0500 Systolic blood pressure 138 mm[Hg] Jaci Mendoza APRN.ARMED SECURITY PROFESSIONAL Work Phone: [facility] 05-14-2022 08:06-0400 Body height 162.[address] Ye Villanueva Work Phone: [facility] Work Phone: 05-14-2022 08:06-0400 Body mass index (BMI) [Ratio] 33.3 kg/m2 Dr. Ye Villanueva Work Phone: [facility] Work Phone: 05-14-2022 08:06-0400 Body weight 88.[address] Ye Villanueva Work Phone: [facility] Work Phone: 05-14-2022 08:06-0400 Diastolic blood pressure 72 mm[Hg] Dr. Ye Villanueva Work Phone: [facility] Work Phone: 05-14-2022 08:06-0400 Systolic blood pressure 110 mm[Hg] Dr. Ye Villanueva Work Phone: [facility] Work Phone: Encounters Encounter Date Encounter Type Care Provider Facility Start: 06-06-2025 ambulatory [facility] [place] [place]: 07-17-2024 Encounter for genera l adult medical examination without abnormal findings [place] [facility] Start: 06-21-2024 End: 06-22-2024 ambulatory [facility] Facility:[facility] Start: 06-18-2023 End: 06-18-2023 ambulatory No Primary Care Physician [facility] Work Phone: Start: 06-18-2023 End: 06-18-2023 Patient encounter procedure No Primary Care Physician [facility] Work Phone: Start: 06-16-2023 End: 06-16-2023 Patient encounter procedure No Primary Care Physician [facility] Work Phone: Start: 05-25-2023 End: 05-25-2023 ambulatory No Primary Care Physician [facility] Work Phone: Start: 05-25-2023 End: 05-25-2023 Patient encounter procedure No Primary Care Physician [facility] Work Phone: Start: 11-28-2022 End: 11-28-2022 ambulatory Facility:[facility] Start: 11-28-2022 End: 11-28-2022 Patient encounter procedure Jaci Mendoza APRN.ARMED SECURITY PROFESSIONAL Work Phone: [facility] Comment on above: Tooth infection (Nandini ju Dx) Start: 05-14-2022 End: 05-14-[address] Ye Villanueva Work Phone: [facility] Procedures Date Procedure Procedure Detail Performing Clinician Start: 05-25-2023 Screening mammography N o Primary Care Physician Start: 05-14-2022 Screening mammography Rhoda Villanueva Work Phone: Start: 08-13-2017 Mammography Jaci Josafat WALKER Work Phone: Plan of Treatment Date Care Activity Detail Author Start: 07-24-2022 Influenza vaccination INFLUENZA (#1) [facility] Start: 05-02-2022 LIPID SCREEN LIPID SCREEN [facility] Start: 04-30-2022 HPV TESTING HPV TESTING [facility] Start: 04-30-2022 PAP TESTING PAP TESTING [facility] Start: 04-26-2021 COVID-19 VACCINE (3 - Booster for Pfizer series) COVID-19 VACCINE (3 - Booster for Pfizer series) [facility] Start: 05-02-2020 DIABETES SCREEN DIABETES SCREEN [facility] Start: 2019 SHINGRIX VACCINE (1 of 2) SHINGRIX V ACCINE (1 of 2) [facility] Start: 08-13-2018 Mammography MAMMOGRAM [facility] Start: 2014 COLOGUARD (FIT-DNA) COLOGUARD (FIT-D NA) [facility] Start: 2014 Colonoscopy COLONOSCOPY [facility] Start: 2014 COLORECTAL CANCER SCREENING COLORECTAL CANCER SCREENING [facility] Start: [address] COLONOGRAPHY [facility] Start: 2014 FECAL OCCULT BLOOD FECAL OCCULT BLOO D [facility] Start: 2014 SIGMOIDOSCOPY SIGMOIDOSCOPY [facility] Start: 1988 Urine microalbumin profile DTAP,TDAP ,TD (1 - Tdap) [facility] Start: 1987 HEPATITIS C SCREENING HEPATITIS C SC ALEXANDRNING [facility] Start: 1987 HIV SCREENING HIV SCREENING [facility] Start: 1969 HEPATITIS B (1 of 3 - 3-dose series) HEPATITIS B (1 of 3 - 3-dose series) [facility] Immunizations Immunization Date Immunization Notes Care Provider Fa yaw 03-01-2021 Covid (Pfizer) Dr. Ye thompson Work Phone: [facility] 02-08-2021 Covid (Pfizer) Dr. Ye thompson Work Phone: [facility] Payers Date Payer Category Payer Self-pay [id number] 2022 Unknown [id number] 2022 Unknown EB [employer] PPO [id number] 2022-Present [phone] [id number] [place] [address] PPO [id number] Unknown [id number] Unknown [facility] [employer] [id number] Unknown [id number] Unknown [id number] Unknown [id number] Unknown [id number] Social History Date Type Detail Facility Start: 05-14-2022 End: 06-16-2023 Tobacco smoking status NHIS Unknown if ever smoked [facility] Start: 1970 Sex Assigned At Female W [facility] Start: 09-04-2011 Tobacco smoking stat us NHIS Never smoked tobacco [facility] Start: 09-04-2011 Tobacco use and exposure Smokeless tobacco non-user [facility] Start: 11-28-2022 Alcohol intake Current non-dr murray of alcohol (finding) [facility] Start: 1970 Sex Assigned At Not on file [facility] Progress note 11-28-2022 Note Date & Type Note Facility 11-28-2022 Note HNO ID: [id number] Author: Jaci Mendoza APRN.ARMED SECURITY PROFESSIONAL Service: ? Author Type: Nurse Practitioner Type: Progress Notes Filed: 11/28/2022 5:08 PM Note Text: Subjective Came in with complaints of some left upper face swelling. Patient has noticed some recent teeth discomfort but feels like it stress related to clenching. Patient denies fevers nausea vomiting chills. The history is provided by the patient. No conference interpreter was used. Edema Review of Systems Constitutional: [...] OR EXPOSED ROOT (ELEVATION AND/OR FORCEPS REMOVAL) [place] teeth PAST SURGICAL HISTORY OF 1989 CRYOTHERAPY [...] Patient was okay with this care plan. Jcai Mednoza APRN.ATA [facility] History of Present illness Narrative 11-28-2022 Jaci [...] history is provided by the patient. No conference interpreter was used. Edema Review of Systems Constitutional: [...] OR EXPOSED ROOT (ELEVATION AND/OR FORCEPS REMOVAL) [place] teeth PAST SURGICAL HISTORY OF 1989 CRYOTHERAPY [...] Jaci Mendoza APRN.ATA documented in this encounter [facility] History of Past illness Narrative 06-06-2009 Note Date & Type Note Facility 06-06-2009 History of Past i llness Narrative Problem Noted Date Resolved Date Routine general medical exam ination at a health care facility 06/06/2009 03/24/2012 Overview: 06/06/2009, established from [facility]ue[facility] Routine gynecological examination 06/06/2009 03/24/2012 Overview: [facility], [facility] documented as of this encounter (statuses as of 11/29/2022) [facility] Chief complaint+Reason for visit Narrative Note Date & Type Note Facility Chief complaint+Reason for visit Narrative Reason for Visit Counseling for hormo ne replacement therapy Family history of breast cancer in mother Encounter for routine gynecological examination [facility] Work Phone: Evaluation note Note Date & Type Note Facility Evaluation note Diagnosis Onset Date Counseling for hormone replacement therapy acute Family history of breast cancer in mother acute Encounter for routine gyneco logical examination noneactive [facility] Work Phone: Evaluation note Note Date & Type Note Facility Evaluation note Diagnosis Tooth infection- Primary Acute apical periodontitis of pulpal origin documented in this encounter [facility] Evaluation note Note Date & Type Note Facility Evaluation note Diagnosis Onset Date Possible exposure to STD non eactive Encounter for routine gyneco logical examination noneactive Monilial vaginitis noneactiv e [facility] Work Phone: Evaluation note Note Date & Type Note Facility Evaluation note Diagnosis Onset Date Possible exposure to STD non eactive Encounter for routine gyneco logical examination noneactive Monilial vaginitis noneactiv e Immunization declined noneac tive Screening for colon cancer n oneactive Screening for cardiovascular condition noneactive Establishing care with [facility] [place], encounter for noneactive Annual physical exam noneact teresa [facility] Work Phone: Family History No Family History Records Found Relationship Condition Age at Onset Recorded Date/T katherine mother Malignant neoplasm of breast Unknown Disorder of thyroid Unknown Hyperlipidemia Unknown Summary Purpose Advance Directives No Advanced Directives Records FoundNo Advanced Directives Records Found Chief Complaint and Reason for Visit 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) Reason for Visit Possible exposure to STD Encounter for routine gynecological examination Monilial vaginitis 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 Reason for [...] section and content) DATE CREATED AUTHOR 11/29/2022 [facility] DATE CREATED AUTHOR AUTHOR'S ORGANIZ ATION 06/04/2025 [facility] Source Comments (unrecognize d section and content) In the event this informatio n is protected by the Federal Confidentiality of Alcohol and Drug Abuse Patient Records regulations: The Federal rules restrict any use of the information to criminally investigate or prosecute any alcohol or drug abuse patient.[facility] Reason for Visit (unrecogniz ed section and [...] Provider, Refer ring Provider Active Mónica Mcgrath COOLING PIPE INSPECTOR, COOLING PIPE INSPECTOR-C Attending Provider Active Team Status: Inactive Member Role Status Dates No Primary Care Physician Primary Care Provider Active Mónica Mcgrath COOLING PIPE INSPECTOR, COOLING PIPE INSPECTOR-C Attending Provider, Referring Provider Active Team Status: [...] BE BASED ON THE PRIMARY CLINICAL RECORDS. [employer] provides no warranty or guarantee of the accuracy or completeness of information in this document.
== END | disposition home or self-care (01) ==
LOC: OPBI 07:02
PROVIDERS: PCP Internal Medicine; Referring Provider Nurse Practitioner Women's Health; Visit Provider Nurse Practitioner Women's Health
DX: Z12.31 Encounter for screening mammogram for malignant neoplasm of breast (principal)
CPT/HCPCS: 77063; 77067

== ENCOUNTER → 2025-06-06 | Outpatient (CLI) | payer BC, SELFPAY ==
[2025-06-09 20:08] LABS: HPV APTIMA, High Risk Positive (Negative); HPV Genotype 16, Aptima Negative (Negative); HPV Genotype 18,45 Aptima Negative (Negative)
== END | disposition home or self-care (01) ==
LOC: LABSPEC 12:04
PROVIDERS: PCP Internal Medicine; Visit Provider Nurse Practitioner Women's Health
DX: Z12.4 Encounter for screening for malignant neoplasm of cervix (principal); R87.610 Atypical squamous cells of undetermined significance on cytologic smear of cervix (ASC-US)
CPT/HCPCS: 87624; 88175; G0145

== ENCOUNTER → 2025-06-15 | Outpatient (CLI) | payer BC, SELFPAY ==
--- OUTSIDE RECORDS SUMMARY | 2025-06-15 07:32 | XMS RPT_ITS | CCD ---
Author Organization [facility] Care Team Providers Care Stretch Machine Operator Name Role Phone Dr. Ye Villanueva Referring Provider [phone] Alcides HEAD TENNIS COACH, HEAD TENNIS COACH-C Mónica Attending Provider [phone] Care Physician, No Primary Primary Care Provider Unavailable Unavailable Primary Care Provider Unavailabl e Care Physician, No Primary Primary Care Provider Unavailable Care Physician, No Primary Referring Provider Un available [place] HEAD TENNIS COACH, HEAD TENNIS COACH-C Mónica Attending Provider Dr. Bev Banks Attending Provider Dr. Bev Banks MD Primary Care Provider Alcides HEAD TENNIS COACH-C, Mónica Attending Provider Alcides HEAD TENNIS COACH-C, Mónica Referring Provider [phone] Dr. Bev Banks MD Referring Provider Darren Bev Referring Unavailable Darren, Bev Primary Care Unavailable Ferullo, July Attending Unavailable Darren, Bev Referring Unavailable [place], Bev Primary Care Unavailable Alcides HEAD TENNIS COACH, Mónica Attending Unavailable Darren, Bev Primary Care Unavailable [place] HEAD TENNIS COACH, Mónica Attending Unavailable Darren, Bev Primary Care Unavailable Alcides HEAD TENNIS COACH, Mónica Referring Unavailable [place] HEAD TENNIS COACH, Mónica Attending Unavailable Darren, Bev Primary Care Unavailable [place]ullo, July Referring Unavailable [place], July Attending Unavailable [place] HEAD TENNIS COACH, Mónica Attending Unavailable [place], Bev Primary Care Unavailable Alcides HEAD TENNIS COACH, Mónica Referring Unavailable Allergies Allergy Classification Reported Allergen(s) Allergy Type Date of Onset Reaction(s) Facility (2 sources) Penicillins; Translations: [PENICILLINS] Propensity to adverse reactions to drug (disorder) 10-26-201 2 GI Upset [facility] Repository Medications Current Medications Medication Drug Class(es) Dates Sig (Normalized) Sig (Original) betamethasone 0.5 mg/ml / clotrimazole 10 mg/ml topical cream (3 sources) Azole Antifungal, Corticosteroid Start: 06-06-2025 Clotrimazole-Bet amethasone 1-0.05 % cream Active 1 NMA TOPICAL TWICE A DAY 45 14 1 June 06, 2025 12:00am Calcium (3 sources) Phosphate Binder, Calcium Start: 06-06-2025 Calcium Active PO June 06, 2025 12:00am cephalexin 500 mg oral capsule (1 source) Cephalosporin Antibacterial Start: 11-28-2022 End: 12-03-2022 take 1 capsule by mouth four times daily cephALEXin (KEFLEX) 500 mg capsule Take 1 capsule by mouth four times daily for 5 days. 20 capsule 0 11/28/2022 12/03/2022 Active Comment on above: Take 1 capsule by mo [facility] four times daily for 5 days. Magnesium (3 sources) Start: 06-06-2025 magnesium Active PO June 06, 2025 12:00am Completed/Discontinued Medications Medication Drug Class(es) Dates Sig (Normalized) Sig (Original) calcium carbonate 1500 mg oral tablet (5 sources) Start: 05-25-2023 End: 06-01-2024 take 1 tablet by mouth once daily Calcium Carbonate (Calcium 600) 600 mg calcium (1,500 mg) tablet Discontinued 600 mg PO DAILY May 25, 2023 12:00am June 01, 2024 8:27am Radhika albicans allergenic extract (4 sources) Non-Standardized Food Allergenic Extract, Non-Standardized Fungal Allergenic Extract Start: 06-16-2023 End: 06-01-2024 Yeast 650 mg tablet Discontinued mg PO June 16, 2023 12:00am June 01, 2024 8:27am Start: 06-16-2023 Yeast Active M G PO June 16, 2023 12:00am Cranberry Fruit Concentrate (4 sources) Non-Standardized Food Allergenic Extract, Non-Standardized Plant Allergenic Extract Start: 06-16-2023 End: 06-01-2024 take 1 tablet by mouth three times daily Cranberry Fruit Concentrate (Azo Cranberry) 250 mg tablet,chewable Discontinued 250 mg PO THREE TIMES A DAY June 16, 2023 12:00am June 01, 2024 8:27am Start: 06-16-2023 take 1 tablet by lucio th three times daily Cranberry Fruit Concentrate (Azo Cranberry) 250 mg tablet,chewable Active 250 MG PO THREE TIMES A DAY June 16, 2023 12:00am Desog-E.Estradiol/E.Estradio l (20 sources) Progestin, Estrogen Start: 04-27-2019 End: 05-02-2020 take 0.15 tablet by mouth once daily Desog-E.Estradiol/E.Estradiol (Viorele (28)) 0.15-0.02 mgx21 /0.01 mg x 5 tablet Discontinued 1 {tbl} PO daily 84 April 27, 2019 11:55am May 02, 2020 8:11am Start: 04-27-2019 End: 05-02-2020 take 0.15 tablet by mouth once daily Desog-E.Estradiol/E.Estradiol (Viorele ( 28)) 0.15-0.02 mgx21 /0.01 mg x 5 tablet Discontinued 1 TABLET PO daily April 27, 2019 11:55am May 02, 2020 8:11am Start: 05-05-2018 End: 04-27-2019 take 0.15 tablet by mouth once daily Desog-E.Estradiol/E.Estradiol (Viorele ( 28)) 0.15-0.02 mgx21 /0.01 mg x 5 tablet Discontinued 1 {tbl} PO daily 84 May 05, 2018 10:03am April 27, 2019 11:56am Start: 05-05-2018 End: 04-27-2019 take 0.15 tablet by mouth once daily Desog-E.Estradiol/E.Estradiol (Viorele ( 28)) 0.15-0.02 mgx21 /0.01 mg x 5 tablet Discontinued 1 TABLET PO daily May 05, 2018 10:03am April 27, 2019 11:56am Start: 04-16-2018 End: 05-05-2018 take 0.15 tablet by mouth once daily Desog-E.Estradiol/E.Estradiol (Viorele ( 28)) 0.15-0.02 mgx21 /0.01 mg x 5 tablet Discontinued 1 {tbl} PO daily 84 April 16, 2018 7:32am May 05, 2018 10:05am Start: 04-16-2018 End: 05-05-2018 take 0.15 tablet by mouth once daily Desog-E.Estradiol/E.Estradiol (Viorele ( 28)) 0.15-0.02 mgx21 /0.01 mg x 5 tablet Discontinued 1 TABLET PO daily 84 April 16, 2018 7:32am May 05, 2018 10:05am Start: 04-13-2018 End: 04-16-2018 take 0.15 tablet by mouth once daily Desog-E.Estradiol/E.Estradiol (Viorele ( 28)) 0.15-0.02 mgx21 /0.01 mg x 5 tablet Discontinued 1 {tbl} PO daily 84 April 13, 2018 12:00am April 16, 2018 7:33am Start: 04-13-2018 End: 04-16-2018 take 0.15 tablet [...] tablet by lucio th once daily. dim (6 sources) Start: 05-14-2022 End: 05-25-2023 dim Discontinued PO May 14, 2022 12:00am May 25, 2023 8:10am Start: 05-14-2022 dim Active PO May 14, 2022 12:00am Ergocalciferol (Vitamin D2) 1,000 unit capsule (6 sources) Start: 04-11-2024 End: 06-01-2024 Ergocalciferol (Vitamin D2) 1,000 unit capsule Discontinued 1000 U PO DAILY April 11, 2024 3:22pm June 01, 2024 8:27am + K2 Start: 04-11-2024 End: 04-11-2024 Ergocalciferol (Vitamin D2) 1,000 unit capsule Discontinued 1000 U PO DAILY April 11, 2024 12:00am April 11, 2024 3:22pm fluconazole 150 mg oral tablet (17 sources) Azole Antifungal Start: 05-25-2023 End: 06-16-2023 Fluconazole 150 mg tablet Discontinued 150 mg PO .COMPLEX 2 0 May 25, 2023 12:00am June 16, 2023 12:34pm 150 mg PO take one po now and repeat in 3 days Start: 05-02-2020 End: 05-07-2021 Fluconazole 150 mg tablet Di scontinued 150 mg PO .COMPLEX 2 0 May 02, 2020 12:00am May 07, 2021 8:02am 150 mg PO take one po now and repeat in 3 days Start: 04-16-2018 End: 04-27-2019 Fluconazole 150 mg tablet Di scontinued 150 mg PO .COMPLEX 2 0 April 16, 2018 12:00am April 27, 2019 11:52am 150 mg PO take one po now and repeat in 3 days hormone replacement therapy (6 sources) Start: 05-14-2022 End: 05-25-2023 hormone replacement therapy Discontinued IMPLANT May 14, 2022 12:00am May 25, 2023 8:10am pellets Start: 05-14-2022 hormone replac ement therapy Active IMPLANT May 14, 2022 12:00am pellets medroxyPROGESTERone acetate 10 mg oral tablet (6 sources) Progestin Start: 05-14-2022 End: 05-24-2022 take 1 tablet by mouth once daily Medroxyprogesterone 10 mg tablet Discontinued 10 mg PO daily 10 10 0 May 14, 2022 12:00am May 23, 2022 12:00am May 24, 2022 12:05am Multivit With Min-Folic Acid (One-A-Day Women Vitacraves) 200 mcg tablet,chewable (4 sources) Start: 06-16-2023 End: 04-11-2024 take 1 tablet by mouth once daily Multivit With Min-Folic Acid (One-A-Day Women Vitacraves) 200 mcg tablet,chewable Discontinued {tbl} PO June 16, 2023 12:00am April 11, 2024 3:21pm Start: 06-16-2023 take 1 tablet by mouth once Mu ltivit With Min-Folic Acid (One-A-Day Women Vitacraves) 200 mcg tablet,chewable Active TABLET PO June 16, 2023 12:00am Phenazopyridine (1 source) PHENAZOPYRIDINE HCL (AZO ORAL) Take by mouth. 0 Active Comment on above: Take by mouth. serene (6 sources) Start: 05-14-2022 End: 04-11-2024 serene Discontinued PO May 14, 2022 12:00am April 11, 2024 3:21pm Start: 05-14-2022 serene Active PO May 14, 2022 12:00am spironolactone 25 mg oral tablet (10 sources) Aldosterone Antagonist Start: 06-16-2023 End: 06-06-2025 take 1 tablet by mouth once daily Spironolactone 25 mg tablet Discontinued 25 mg PO DAILY 90 1 July 27, 2024 4:54pm June 06, 2025 7:52am Start: 06-16-2023 Spironolactone Active MG PO June 16, 2023 12:00am Problems Problem Classification Problem Date Documented Date Episodic/Chronic Administrative/social admission (3 sources) Patient encounter status; Translations: [Other specified counseling] Episodic Cancer of cervix (5 sources) Atypical squamous cells of undetermined significance on cervical Papanicolaou smear; Translations: [Atypical squamous cells of undetermined significance on cytologic smear of cervix (ASC-US)] 06-08-2024 Episodic Comment on above: repeat pap 2024 repeat pap 2024 neg pap, +HPV. Rpt 1 yr. Disorders of lipid metabolism (4 sources) Hyperlipidemia; Translations: [Hyperlipidemia, unspecified] 09-28-2007 Chronic Disorders [...] depressive episodes] Onset: 07-17-2009 07-17-2009 Chronic Mycoses (4 sources) Candidiasis of vagina; Translations: [Anogenital candidiasis in female] 05-25-2023 Episodic Other nutritional; endocrine; and metabolic disorders (4 sources) Obesity; Translations: [Obesity, unspecified] Onset: 06-06-2009 06-06-2009 Chronic Other screening for suspected conditions (not mental disorders or infectious disease) (6 sources) Encounter for screening for malignant neoplasm of colon; Translations: [Special screening for malignant neoplasms of colon] Onset: 06-12-2025 06-16-2023 Episodic Residual codes; unclassified (6 sources) Family history of malignant neoplasm of breast in first degree relative; Translations: [Family history of malignant neoplasm of breast] 05-25-2023 Episodic Comment on above: in her 70s; declines empower testing Residual codes; unclassified (1 source) Family history of malignant neoplasm of breast; Translations: [Family history of malignant neoplasm of breast] Episodic Residual codes; unclassified (1 source) Immunization not carried out because of patient refusal; Translations: [Vaccination not carried out because of patient refusal] 06-16-2023 Episodic Residual codes; unclassified (3 sources) Medication refused; Translations: [Immunization not carried out because of patient refusal] 06-21-2024 Episodic Results Test Name Value Interpretation Reference Range Facility PAP IG HPV APTIMA 16/18,45on 06-09-2025 ADEQ Comment Normal . [facility] Comment on above: Order Comment: Jessika douglass Comment: [id number] Specimen Comment: No. of containers..01 ThinPrep Vial Result Comment: Sati sfactory for evaluation. Endocervical and/or squamous metaplastic cells (endocervical component) are present. Performed By: #### L 7400.0280 #### [facility] [address] [place], [place], [id number] COMM . Normal . [facility] Comment on above: Order Comment: Speci rafat Comment: [id number] Specimen Comment: No. of containers..01 ThinPrep Vial Performed By: #### L 7400.0280 #### [facility] [address] [place], [place], [id number] COMMENT Comment Normal . [facility] Comment on above: Order Comment: Speci men Comment: [id number] Specimen Comment: No. of containers..01 ThinPrep Vial Result Comment: This liquid based ThinPrep(R) pap test was screened with the use of an image guided system. Performed By: #### L 7400.0280 #### [facility] [address] [place], [address] DIAG Comment Normal . [facility] Comment on above: Order Comment: Speci men Comment: [id number] Specimen Comment: No. of containers..01 ThinPrep Vial Result Comment: NEGA TIVE FOR INTRAEPITHELIAL LESION OR MALIGNANCY. Performed By: #### L 7400.0280 #### [facility] [address] [place], [address] HPV APTIMA, HR Positive Abnormal Negative [facility] Comment on above: Order Comment: Speci men Comment: [id number] Specimen Comment: No. of containers..01 ThinPrep Vial Result Comment: This nucleic acid amplification test detects fourteen high- risk HPV types (16,18,31,33,35,39,45,51,52,56,58,59,66,68) without differentiation. Performed By: #### L 7400.0280 #### [facility] [address] [place], [place], [address] HPV Albina 18,45 Negative Normal Negative [facility] Comment on above: Order Comment: Speci men Comment: [id number] Specimen Comment: No. of containers..01 ThinPrep Vial Result Comment: Perf ormed at: - [address] [id number] Teacher Education Instructor: Imani Jha MD, Phone: [phone] Performed at: = - [address] [id number] Teacher Education Instructor: Imani Jha MD, Phone: [phone] Performed By: #### L 7400.0280 #### [facility] [address] [place], [address] HPV Albina Rfx Comment Normal . [facility] Comment on above: Order Comment: Speci men Comment: [id number] Specimen Comment: No. of containers..01 ThinPrep Vial Result Comment: Christian mahajan, see HPV Genotype results. Performed By: #### L 7400.0280 #### [facility] [address] [place], [address] HPV Genotype 16 Negative Normal Negative [facility] Comment on above: Order Comment: Speci men Comment: [id number] Specimen Comment: No. of containers..01 ThinPrep Vial Performed By: #### L 7400.0280 #### [facility] [address] [place], [address] PAPSMR Comment Normal . [facility] Comment on above: Order Comment: Speci men Comment: [id number] Specimen Comment: No. of containers..01 ThinPrep Vial Result Comment: The Pap smear is a screening test designed to aid in the detection of premalignant and malignant conditions of the uterine cervix. It is not a diagnostic procedure and should not be used as the sole means of detecting cervical cancer. Both false-positive and false-negative reports do occur. Performed By: #### L 7400.0280 #### [facility] [address] [place], [place], [address] PERFORM Comment Normal . [facility] Comment on above: Order Comment: Speci men Comment: [id number] Specimen Comment: No. of containers..01 ThinPrep Vial Result Comment: Erin Arnett, Outboard Motor Mechanic (ASCP) Performed By: #### L 7400.0280 #### [facility] [address] [place], [address] Breast imaging reportOrdered By: Juan Guzman on 06-06-2025 Study report [facility] Imaging Services [address] [place], [place] [address] SCRN MAMM (CAD)W/KASEY BILAT MR#: [id number] Acct: [id number] Name: GRAZYNA UPTON Rep #: [id number] : 1970 F 55 From: Dick Guzman MD PCP: Dr. Bev Banks MD Status: REG CLI Study:SCRN MAMM (CAD)W/KASEY BILAT Date of Exa m: 06/06/25 Exam# [id number] Ordering Dr: Mónica Mcgrath NP HEAD TENNIS COACH-C EXAM: SCRN MAMM (CAD)W/KASEY BILAT DATE: 06/06/2025 CLINICAL HISTORY: F, Age 55 y/o , SCREENING MAMMOGRAM FOR BREAST CANCER History of mother with breast cancer. TECHNIQUE: SCRN MAMM (CAD)W/KASEY BILAT COMPARISON: Prior exam(s) dated June 01, 2024.. FINDINGS: TISSUE DENSITY: The breasts are heterogeneously dense, which may obscure small masses. Bilateral Breast Mammographic Findings: There is a 7.5 mm slightly irregular density in the deep medial upper aspect of the left breast. Correlation with ultrasound recommended. BI/SCRN MAMM (CAD)W/KASEY BILAT IMPRESSION: 7.5 mm irregular nodular density seen deep in the medial upper aspect of the left breast as described. Sonographic correlation recommended. OVERALL FINAL ASSESSMENT BI-RADS 0: INCOMPLETE - NEED ADDITIONAL IMAGING EVALUATION. RECOMMENDATION: Ultrasound Recommended A letter with findings and recommendations will be mailed to the patient. Reading Location: [id number] CC: HEAD TENNIS COACH-C Mónica cMgrath; Dr. Bev Banks MD ~ Animal Damage Control Agent: Signed [facility] Cervical or vaginal specimen microscopic examination by liquid based cytology (reportOrdered By: Mónica Mcgrath on 06-06-2025 Cytology report Cyto stain.thin prep Doc (Cvx/Vag) Comment . [facility] Comment on above: Criteria met, see HP V Genotype results. Cervical or vagninal specime n microscopic examination by cytology stain (reported asOrdered By: Mónica Mcgrath on 06-06-2025 Cytology report Cyto stain Doc (Cvx/Vag) Comment . [facility] Comment on above: The Pap smear is a s creening test designed to aid in thedetection of premalignant and malignant conditions of theuterine cervix. It is not a diagnostic procedure andshould not be used as the sole means of detecting cervicalcancer. Both false-positive and false-negative reports dooccur. Cervical specimen Aptima HPV assayOrdered By: Mónica Mcgrath on 06-06-2025 HPV E6+E7 mRNA CLEMENTINE+probe Ql (Cvx) Negative Negative [facility] Comment on above: Performed at: WB - [facility] [address] [id number] Director: Imani Jha MD, Phone: [phone] at: =G - [facility] [address] [id number] Director: Imani Jha MD, Phone: [phone] Cervical specimen human anil lloma virus (HPV) type 16 DNA detection by probe with sigOrdered By: Mónica Mcgrath on 06-06-2025 HPV 16 DNA Probe+sig amp Ql (Cvx) Negative Negative [facility] Detection in cervical specim en of any of human papilloma virus (HPV) 16, 18, 31, 33,Ordered By: Mónica Mcgrath on 06-06-2025 HPV 16+18+31+33+35+39+45+51+5 2+56+58+59+66+68 DNA Probe+sig amp Ql (Cvx) Positive High Negative [facility] Comment on above: This nucleic acid am plification test detects fourteen high-risk HPV types (16,18,31,33,35,39,45,51,52,56,58,59,66,68)without differentiation. Laboratory - CytologyOrdered By: Mónica Mcgrath on 06-06-2025 Outboard Motor Mechanic Cyto stain Nom (Cvx/Vag) [ID] Comment . [facility] Comment on above: Caroline Arnett, Cytol ogist (ASCP) Laboratory - Miscellaneous t estsOrdered By: Mónica Mcgrath on 06-06-2025 Service comment (Unsp spec) [Interp] . . [facility] No Panel InformationOrdered By: Mónica Mcgrath on 06-06-2025 Pap Smear Specimen Adequacy Comment . [facility] Comment on above: Satisfactory for micheline luation. Endocervical and/or squamous metaplasticcells (endocervical component) are present. [facility] Office Visit Reporton 06-06-2025 [facility] Office Visit Report [facility] [address], [address] [place] [address] OFFICE VISIT Date of Service: 06/06/25 MR#: [id number] Acct: [id number] Name: GRAZYNA UPTON Rep #: [id number] : 1970 Provider: ED pereira Age/Sex: 55/F Location: [facility] Status: Signed Intake Vital Signs 06/21/24 13:10 03/02/25 15:35 06/06/25 07:50 Height 5 ft 4 in 5 ft 4 in 5 ft 4 in Weight: 212 lb 2 oz 223 lb 4 oz BMI 36.3 38.3 BP 122/60 H 120/83 H Blood Pressure Location Lt brachial Position Sitting Respiration 16 Pulse 90 Pulse Source Monitor Temp 98.2 F Pulse Oximetry (%) 95 Oxygen Delivery Method room air 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) Chief Complaint: Annual Logistics Planning Engineer Required: No Is patient in pain?: No Allergies No Known Allergies Allergy (Verified 06/06/25 07:59) Medications ???Medication ???Instructions ???Recorded ???Confirmed ???Type Calcium PO 06/06/25 06/06/25 History clotrimazole-betamet hasone 1 1 applic topical BID 2 weeks #45 0 06/06/25 06/06/25 Rx %-0.05 % topical cream grams magnesium PO 06/06/25 History Is last menstrual period known: No Post menopausal: Yes Patient : No : No PFSH Medical History Family history of breast cancer in mother Abnormal Pap smear of cervix Surgical History History of cryosurgery Family History Mother Breast cancer Thyroid disorder Hyperlipidemia Social History household members: none current occupational status: employed 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 [employer] Smoking Status: Never smoker Electronic Cigarette Use: not used alcohol intake: never substance use type: does not use caffeine: No what type of physical activity do you participate in: walking frequency: daily seatbelt use: always do you feel safe at home: Yes additional social history: 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 Itchy rash bilateral groin. Sexually active-declines need for STD screen Last PAP: 06/01/24 - ASCUS History of abnormal PAP: ASCUS, hx abn Last mammogram: Today - 7.5mm Nodule History of abnormal mammogram:2024 Colon cancer screening: Due, pt refusing order Other preventative health care screenings: PCP- Dr Banks Female Reproductive History Questions: metorrhagia: No, sexually active: Yes, dyspareunia: No and PCB: No ROS Const Constitutional: Denies fatigue, weight gain or weight loss Cardio Card: Denies chest pain Resp Resp: Denies cough or dyspnea on exertion GI GI: Denies abdominal pain, bloating, change in stool character, constipation or vomiting : Reports as per HPI; Denies difficulty voiding, pelvic pain, urinary frequency, urinary incontinence, urinary urgency, vaginal discharge or vaginal pruritus Skin Skin/Breast: Reports as per HPI Exam Const General: cooperative, healthy appearing, no acute distress and well developed Orientation: alert, oriented to person and oriented to place HENMD Head: normal to inspection Neck Neck: normal visual inspection Thyroid: thyroid normal Lymphatic: no lymphadenopathy noted Chest Breast inspection: normal inspection of the breasts and normal inspection of the axillae Breast palpation: normal palpation of the breasts, normal palpation of the axillae and no axillary lymphadenopathy Resp Effort Inspection: normal respiratory effort GI Palpation: soft, no masses and nontender Rectal Exam: deferred External Female Exam: normal appearance of the urethra and erythema (raised rash bilateral groin) Urethra: normal appearance of the urethra and normal palpation Speculum Exam - Vagina: normal appearance of the vagina and normal vaginal discharge Speculum Exam - Cervix: normal appearance of the cervix Bimanual Exam- Vagina Uterus: normal bimanual exam, uterine size normal, uterine shape normal and non-tender Bimanual Exam- Adnexa, other: normal adnexae, no masses, normal and non-tender Pelvic Support: normal Neuro General: patient alert and patient oriented x3 Psych Affect: normal affect Coding Level of Care Code Off vis,est,prev 40-64yrs Diagnoses Encounter for gynecological examination with abnormal finding Z01.411 Gynecological examination findings: abnormal findin (more content not included)... Normal [facility] SCRN MAMM (CAD)W/KASEY BILATo n 06-06-2025 SCRN MAMM (CAD)W/KASEY BILAT [facility] Imaging Services [address] [place], [place] [address] SCRN MAMM (CAD)W/KASEY BILAT MR#: [id number] Acct: [id number] Name: GRAZYNA UPTON Rep #: [id number] : 1970 F 55 From: Juan hoffmann MD PCP: Dr. Bev Banks MD Status: [facility] Study: SCRN MAMM (CAD)W/KASEY BILAT Date of Exam: 05/23 04/16 Exam# [id number] Ordering Dr: Mónica Mcgrath HEAD TENNIS COACH HEAD TENNIS COACH -C EXAM: SCRN MAMM (CAD)W/KASEY BILAT DATE: 06/06/2025 CLINICAL HISTORY: F, Age 55 y/o , SCREENING MAMMOGRAM FOR BREAST CANCER History of mother with breast cancer. TECHNIQUE: SCRN MAMM (CAD)W/KASEY BILAT COMPARISON: Prior exam(s) dated June 01, 2024.. FINDINGS: TISSUE DENSITY: The breasts are heterogeneously dense, which may obscure small masses. Bilateral Breast Mammographic Findings: There is a 7.5 mm slightly irregular density in the deep medial upper aspect of the left breast. Correlation with ultrasound recommended. BI/SCRN MAMM (CAD)W/KASEY BILAT IMPRESSION: 7.5 mm irregular nodular density seen deep in the medial upper aspect of the left breast as described. Sonographic correlation recommended. OVERALL FINAL ASSESSMENT BI-RADS 0: INCOMPLETE - NEED ADDITIONAL IMAGING EVALUATION. RECOMMENDATION: Ultrasound Recommended A letter with findings and recommendations will be mailed to the patient. Reading Location: [id number] CC: ED Mcgrath; Dr. Bev Banks MD Animal Damage Control Agent: Signed Normal [facility] CBC W/Diff, Automatedon 07-3 Absolute Lymph 1.92 X10 3/uL Normal 0.83-4.51 [facility] Comment on above: Performed By: #### L 500.4050, L500.4100, L100.0100 #### [facility] [address] [place], [address] Absolute Neut 3.1 X10 3/uL Normal 2.0-7.7 [facility] Comment on above: Performed By: #### L 500.4050, L500.4100, L100.0100 #### [facility] [address] [place], [address] Basophils/100 WBC (Bld) 1.0 % Normal 0-1 [facility] Comment on above: Performed By: #### L 500.4050, L500.4100, L100.0100 #### [facility] [address] [place], [address] Eosinophils/100 WBC (Bld) 5.6 % High 0-5 [facility] Comment on above: Performed By: #### L 500.4050, L500.4100, L100.0100 #### [facility] [address] [place], [address] Erythrocyte distribution width (RBC) [Ratio] 12.9 % Normal 11.6-14.6 [facility] Comment on above: Performed By: #### L 500.4050, L500.4100, L100.0100 #### [facility] [address] [place], [address] Hematocrit (Bld) [Volume fraction] 38.5 % Normal 37-47 [facility] Comment on above: Performed By: #### L 500.4050, L500.4100, L100.0100 #### [facility] [address] [place], [address] Hemoglobin (Bld) [Mass/Vol] 12.6 g/dL Normal 12.0-15.0 [facility] Comment on above: Performed By: #### L 500.4050, L500.4100, L100.0100 #### [facility] [address] [place], [address] IG% 0.300 Normal 0.0-0.9 [facility] Comment on above: Result Comment: IG% - Immature Granulocytes (promyelocytes, myelocytes and metamyelocytes) > 1% indicates that a LEFT SHIFT is Present. Performed By: #### L 500.4050, L500.4100, L100.0100 #### [facility] [address] [place], [address] Lymphocytes/100 WBC (Bld) 32.4 % Normal 19-41 [facility] Comment on above: Performed By: #### L 500.4050, L500.4100, L100.0100 #### [facility] [address] [place], [address] MCH (RBC) [Entitic mass] 29.6 pg Normal 27.0-32.0 [facility] Comment on above: Performed By: #### L 500.4050, L500.4100, L100.0100 #### [facility] [address] [place], [address] MCHC (RBC) [Mass/Vol] 32.7 g/dL Normal 32-36 [facility] Comment on above: Performed By: #### L 500.4050, L500.4100, L100.0100 #### [facility] [address] [place], [address] MCV (RBC) [Entitic vol] 90.4 fL Normal 81-99 [facility] Comment on above: Performed By: #### L 500.4050, L500.4100, L100.0100 #### [facility] [address] [place], [address] Monocytes/100 WBC (Bld) 7.8 % Normal 0-10 [facility] Comment on above: Performed By: #### L 500.4050, L500.4100, L100.0100 #### [facility] [address] [place], [address] Neutrophils/100 WBC (Bld) 52.9 % Normal 47-70 [facility] Comment on above: Performed By: #### L 500.4050, L500.4100, L100.0100 #### [facility] [address] [place], [address] Nucleated RBC (Bld) [#/Vol] 0 10*3/uL Normal 0-5 [facility] Comment on above: Performed By: #### L 500.4050, L500.4100, L100.0100 #### [facility] [address] [place], [address] Platelet mean volume (Bld) [Entitic vol] 10.8 fL Normal 6.2-12.0 [facility] Comment on above: Performed By: #### L 500.4050, L500.4100, L100.0100 #### [facility] [address] [place], [address] Platelets (Bld) [#/Vol] 244 10*3/uL Normal 150-450 [facility] Comment on above: Performed By: #### L 500.4050, L500.4100, L100.0100 #### [facility] [address] [place], [address] RBC (Bld) [#/Vol] 4.26 10*6/uL Normal 4.2-5.4 [facility] Comment on above: Performed By: #### L 500.4050, L500.4100, L100.0100 #### [facility] [address] [place], [address] RDW SD 42.5 fl Normal 35.1-43.9 [facility] Comment on above: Performed By: #### L 500.4050, L500.4100, L100.0100 #### [facility] [address] [place], [address] WBC (Bld) [#/Vol] 5.9 10*3/uL Normal 4.4-11.[address] [facility] Comment on above: Performed By: #### L 500.4050, L500.4100, L100.0100 #### [facility] [address] [place], [address] Comprehensive Metabolic Prof [facility] 06-22-2024 Albumin [Mass/Vol] 3.4 g/dL Normal 3.2-5.[address] [facility] Comment on above: Performed By: #### L 500.4050, L500.4100, L100.0100 #### [facility] [address] [place], [address] Albumin/Globulin [Mass ratio] 0.8 {ratio} Low 0.9-2.4 [facility] Comment on above: Performed By: #### L 500.4050, L500.4100, L100.0100 #### [facility] [address] [place], [address] ALK P 107 U/L Normal 45-117 [facility] Comment on above: Performed By: #### L 500.4050, L500.4100, L100.0100 #### [facility] [address] [place], [address] ALT [Catalytic activity/Vol] 17 U/L Normal 13-56 [facility] Comment on above: Performed By: #### L 500.4050, L500.4100, L100.0100 #### [facility] [address] [place], [address] AST [Catalytic activity/Vol] 17 U/L Normal 15-37 [facility] Comment on above: Performed By: #### L 500.4050, L500.4100, L100.0100 #### [facility] [address] [place], [address] Bilirubin [Mass/Vol] 0.30 mg/dL Normal 0.20-1.00 [facility] Comment on above: Result Comment: For patients on eltrombopag therapy, use of Dimension [place] TBIL is not recommended. Performed By: #### L 500.4050, L500.4100, L100.0100 #### [facility] [address] [place], [address] BUN/CRE 16.9 RATIO Normal 10-20 [facility] Comment on above: Performed By: #### L 500.4050, L500.4100, L100.0100 #### [facility] [address] [place], [address] CA,Total 8.8 mg/dL Normal 8.5-10.1 [facility] Comment on above: Performed By: #### L 500.4050, L500.4100, L100.0100 #### [facility] [address] [place], [address] Chloride [Moles/Vol] 107 mmol/L Normal 98-107 [facility] Comment on above: Performed By: #### L 500.4050, L500.4100, L100.0100 #### [facility] [address] [place], [address] CO2 [Moles/Vol] 29.0 mmol/L Normal 21.0-32.0 [facility] Comment on above: Performed By: #### L 500.4050, L500.4100, L100.0100 #### [facility] [address] [place], [address] Creatinine [Mass/Vol] 0.89 mg/dL Normal 0.55-1.02 [facility] Comment on above: Result Comment: The validity of the calculated GFR GFRAA in patients over 70 years has not been determined. Clinical correlation is essential. Performed By: #### L 500.4050, L500.4100, L100.0100 #### [facility] [address] [place], [address] EST GFR - AA 85 mL/min Normal >60 [facility] Comment on above: Result Comment: Afri can Colombian GFR Calc Performed By: #### L 500.4050, L500.4100, L100.0100 #### [facility] [address] [place], [address] GAP 2 Low 5-15 [facility] Comment on above: Performed By: #### L 500.4050, L500.4100, L100.0100 #### [facility] [address] [place], [address] GFR/1.73 sq M.predicted among non-blacks MDRD (S/P/Bld) [Vol rate/Area] 70 mL/min/{1.73_m2} Normal >60 [facility] Comment on above: Result Comment: Non- GFR Calc Performed By: #### L 500.4050, L500.4100, L100.0100 #### [facility] [address] [place], [address] Globulin (S) [Mass/Vol] 4.3 g/dL High 2.2-4.2 [facility] Comment on above: Performed By: #### L 500.4050, L500.4100, L100.0100 #### [facility] [address] [place], [address] Glucose [Mass/Vol] 86 mg/dL Normal 74-[address] [facility] Comment on above: Performed By: #### L 500.4050, L500.4100, L100.0100 #### [facility] [address] [place], [address] Potassium [Moles/Vol] 4.2 mmol/L Normal 3.5-5.1 [facility] Comment on above: Performed By: #### L 500.4050, L500.4100, L100.0100 #### [facility] [address] [place], [address] Sodium [Moles/Vol] 138 mmol/L Normal 136-[address] [facility] Comment on above: Performed By: #### L 500.4050, L500.4100, L100.0100 #### [facility] [address] [place], [address] T PROT 7.7 g/dL Normal 6.4-8.2 [facility] Comment on above: Performed By: #### L 500.4050, L500.4100, L100.0100 #### [facility] [address] [place], [address] Urea nitrogen [Mass/Vol] 15 mg/dL Normal 7-18 [facility] Comment on above: Performed By: #### L 500.4050, L500.4100, L100.0100 #### [facility] [address] [place], [address] Lipid Profileon 06-22-2024 Cholesterol [Mass/Vol] 202 mg/dL High 200 [facility] Comment on above: Result Comment: <200 mg/dL Desirable 200-240 mg/dL Borderline >240 mg/dL High Risk Performed By: #### L 500.4050, L500.4100, L100.0100 #### [facility] [address] [place], [address] Cholesterol in HDL [Mass/Vol] 69 mg/dL Normal [facility] Comment on above: Result Comment: The drugs N-Acetylcysteine and Metamizole may falsely depress this assay. Reference Range HDL <40 mg/dL Low HDL Cholesterol HDL >or= 60 mg/dL High HDL Cholesterol Performed By: #### L 500.4050, L500.4100, L100.0100 #### [facility] [address] [place], [address] Cholesterol in LDL [Mass/Vol] 113 mg/dL Normal 0-130 [facility] Comment on above: Performed By: #### L 500.4050, L500.4100, L100.0100 #### [facility] [address] [place], [address] Cholesterol in VLDL [Mass/Vol] 20 mg/dL Normal 5-40 [facility] Comment on above: Performed By: #### L 500.4050, L500.4100, L100.0100 #### [facility] [address] [place], [address] Triglyceride [Mass/Vol] 100 mg/dL Normal [facility] Comment on above: Result Comment: The drugs N-Acetylcysteine and Metamizole may falsely depress this assay. Serum Triglycerides Reference Interval Normal <150 mg/dL Borderline high 150 - 199 mg/dL High 200 - 499 mg/dL Very High > or = 500 mg/dL Performed By: #### L 500.4050, L500.4100, L100.0100 #### [facility] [address] 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 Accompanied by: Self Is patient [...] status: employed 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 Normal [facility] Absolute lymphocyte countOrd ered By: Bev Banks on 06-18-2023 Lymphocytes Auto (Unsp spec) [#/Vol] 1.49 10*3/uL 0.83-4.51 [facility] Basophil percentageOrdered B y: Bev Banks on 06-18-2023 Basophils/100 WBC (Bld) 1.0 % 0-1 [facility] Bilirubin [Mass/Vol] 0.40 mg/dL 0.20-1.00 [facility] Comment on above: For patients on eltr ombopag therapy, use of Dimension [place] TBIL is not recommended. Chloride [Moles/Vol] 105 mmol/L 98-107 [facility] Cholesterol [Mass/Vol] 236 mg/dL <200 [facility] Comment on above: <200 mg/dL Desirable 200-240 mg/dL Borderline >240 mg/dL High Risk Eosinophils/100 WBC (Bld) 4.0 % 0-5 [facility] Glucose [Mass/Vol] 93 mg/dL 74-[address] [facility] Neutrophils (Bld) [#/Vol] 3.9 10*3/uL 2.0-7.7 [facility] Neutrophils/100 WBC (Bld) 62.3 % 47-70 [facility] Potassium [Moles/Vol] 4.1 mmol/L 3.5-5.1 [facility] Protein [Mass/Vol] 8.2 g/dL 6.4-8.[address] [facility] Sodium [Moles/Vol] 138 mmol/L 136-[address] [facility] Triglyceride [Mass/Vol] 113 mg/dL <199 [facility] Comment on above: The drugs N-Acetylcy steine and Metamizole may falsely depress this assay.Serum Triglycerides Reference Interval Normal <150 mg/dL Borderline high 150 - 199 mg/dL High 200 - 499 mg/dL Very High > or = 500 mg/dL WBC (Bld) [#/Vol] 6.2 10*3/uL 4.4-11.[address] [facility] Blood erythrocytes count (nu mber/volume)Ordered By: Bev Banks on 06-18-2023 RBC (Bld) [#/Vol] 4.29 10*6/uL 4.2-5.4 [facility] Blood hemoglobin measurement (mass/volume)Ordered By: Bev Banks on 06-18-2023 Hemoglobin (Bld) [Mass/Vol] 13.2 g/dL 12.0-15.0 [facility] Blood lymphocytes/100 leukoc ytesOrdered By: Bev Banks on 06-18-2023 Lymphocytes/100 WBC (Bld) 24.0 % 19-41 [facility] Blood monocytes/100 leukocyt esOrdered By: Bev Banks on 06-18-2023 Monocytes/100 WBC (Bld) 8.2 % 0-10 [facility] Blood platelet mean volumeOr dered By: Bev Banks on 06-18-2023 Platelet mean volume (Bld) [Entitic vol] 10.6 fL 6.2-12.0 [facility] Determination of erythrocyte mean corpuscular volume (MCV)Ordered By: Bev Banks on 06-18-2023 MCV (RBC) [Entitic vol] 94.6 fL 81-99 [facility] Hematocrit Auto (Bld) [Volum e fraction]Ordered By: Bev Banks on 06-18-2023 Hematocrit (Bld) [Volume fraction] 40.6 % 37-47 [facility] - Chemistry and C hemistry - challengeOrdered By: Bev Banks on 06-18-2023 ALP [Catalytic activity/Vol] 117 U/L 45-117 [facility] ALT [Catalytic activity/Vol] 25 U/L 13-56 [facility] CO2 [Moles/Vol] 26.0 mmol/L 21.0-32.0 [facility] Globulin (S) [Mass/Vol] 4.7 g/dL 2.2-4.2 [facility] Urea nitrogen/Creatinine [Mass ratio] 19.5 mg/mg 10-20 [facility] - Hematology and Cell countsOrdered By: Bev Banks on 06-18-2023 Erythrocyte distribution width (RBC) [Entitic vol] 44.5 fL 35.1-43.[address] [facility] Erythrocyte distribution width (RBC) [Ratio] 12.9 % 11.6-14.6 [facility] Immature granulocytes/100 WBC (Bld) 0.500 % 0.0-0.9 [facility] Comment on above: IG% - Immature Granu locytes (promyelocytes, myelocytes and metamyelocytes) > 1% indicates that a LEFT SHIFT is Present. MCH (RBC) [Entitic mass] 30.8 pg 27.0-32.0 [facility] Nucleated RBC/100 WBC (Bld) [Ratio] 0 % 0-5 [facility] MCHC Auto (RBC) [Mass/Vol]Or dered By: Bev Banks on 06-18-2023 MCHC (RBC) [Mass/Vol] 32.5 g/dL 32-36 [facility] No Panel InformationOrdered By: Bev Banks on 06-18-2023 Estimated GFR (MDRD) Amer 82 mL/min >60 [facility] Comment on above: GFR Calc Estimated GFR (MDRD) Non-Af Amer 67 mL/min >60 [facility] Comment on above: Non- GFR Calc Platelets bldOrdered By: Billy Banks on 06-18-2023 Platelets (Bld) [#/Vol] 227 10*3/uL 150-450 [facility] Serum or plasma albumin tanika urement (mass/volume)Ordered By: Bev Banks on 06-18-2023 Albumin [Mass/Vol] 3.5 g/dL 3.2-5.[address] [facility] Serum or plasma albumin/glob ulin mass ratioOrdered By: Bev Banks on 06-18-2023 Albumin/Globulin [Mass ratio] 0.7 {ratio} 0.9-2.4 [facility] Serum or plasma calcium tanika urement (mass/volume)Ordered By: Bev Banks on 06-18-2023 Calcium [Mass/Vol] 9.0 mg/dL 8.5-10.[address] [facility] Serum or plasma cholesterol in HDL measurement (mass/volume)Ordered By: Bev Banks on 06-18-2023 Cholesterol in HDL [Mass/Vol] 71 mg/dL >40 [facility] Comment on above: The drugs N-Acetylcy steine and Metamizole may falsely depress this assay. Reference Range HDL <40 mg/dL Low HDL Cholesterol HDL >or= 60 mg/dL High HDL Cholesterol Serum or plasma cholesterol in VLDL measurement (mass/volume)Ordered By: Bev Banks on 06-18-2023 Cholesterol in VLDL [Mass/Vol] 23 mg/dL 5-40 [facility] Serum or plasma creatinine m easurement (mass/volume)Ordered By: Bev Banks on 06-18-2023 Creatinine [Mass/Vol] 0.92 mg/dL 0.55-1.02 [facility] Comment on above: The validity of the calculated GFR & GFRAA in patients over 70 years has not been determined. Clinical correlation is essential. Serum or plasma low density lipoprotein (LDL) cholesterol measurement (mass/volume)Ordered By: Bev Banks on 06-18-2023 Cholesterol in LDL [Mass/Vol] 142 mg/dL 0-130 [facility] Serum or plasma urea nitroge n measurement (mass/volume)Ordered By: Bev Banks on 06-18-2023 Urea nitrogen [Mass/Vol] 18 mg/dL 7-18 [facility] Thin prep Papanicolaou smear with manual screeningOrdered By: Bev Banks on 06-18-2023 Thin prep Papanicolaou smear with manual screening 18 U/L 15-37 [facility] Thin prep Papanicolaou smear with manual screening 7 5-15 [facility] Chlamydia trachomatis rRNA d etection by probe and target amplification methodOrdered By: Mónica Mcgrath on 05-25-2023 C. trachomatis rRNA CLEMENTINE+probe Ql (Unsp spec) Negative Negative [facility] - Microbiology an d Antimicrobial susceptibilityOrdered By: Mónica Mcgrath on 05-25-2023 N. gonorrhoeae DNA CLEMENTINE+probe Ql (Unsp spec) Negative Negative [facility] Comment on above: Performed at: =G - L ashley [address] [place] [id number] Director: Imani Jha MD, Phone: [phone] No Panel Informationon 05-25 POC Trichomonas (Rapid) Negative [facility] CNOVon 11-28-2022 CNOV Office Visit ([facility]WSTR) GRAZYNA UPTON ([id number]) 1970 F Date Time Provider Department 11/28/22 4:45 PM JACI MENDOZA [facility] During your visit today, we recorded the following information about you: Temperature Pulse Respiration Blood pressure 98.5 degrees 92/minute 18/minute 138/86 Weight 96.8 kg Jaci Mendoza APRN.[employer]S CUTTER 11/28/2022 5:08 PM Signed Subjective Came in with complaints of some left upper face swelling. Patient has noticed some recent teeth discomfort but feels like it stress related to clenching. Patient denies fevers nausea vomiting chills. The history is provided by the patient. No language asst was used. Edema Review of Systems Constitutional: [...] OR EXPOSED ROOT (ELEVATION AND/OR FORCEPS REMOVAL) [place] teeth PAST SURGICAL HISTORY OF 1989 CRYOTHERAPY [...] okay with this care plan. Jaci Mendoza APRN.[employer] C[employer]TER Allergies As of Date: 11/28/2022 Noted Allergy [...] Status:Closed by JACI MENDOZA on 11/28/22 Normal [facility] Vital Signs Date Time Vital Sign Value Performing Clinician Facility 06-06-2025 07:50-0400 Body height 162.[address] Bev Banks MD Work Phone: [facility] 06-06-2025 07:50-0400 Body mass index (BMI) [Ratio] 38.3 kg/m2 Dr. Bev Banks MD Work Phone: [facility] 06-06-2025 07:50-0400 Body weight 101.[address] Bev Banks MD Work Phone: [facility] 06-06-2025 07:50-0400 Diastolic blood pressure 83 mm[Hg] Dr. Bev Banks MD Work Phone: [facility] 06-06-2025 07:50-0400 Systolic blood pressure 120 mm[Hg] Dr. Bev Banks MD Work Phone: [facility] 06-16-2023 12:36-0400 Body height 162.56 cm No Primary Care Physician [facility] 06-16-2023 12:36-0400 Body mass index (BMI) [Ratio] 35.6 kg/m2 No Primary Care Physician [facility] 06-16-2023 12:36-0400 Body temperature 98.3 [degF] No Primary Care Physician [facility] 06-16-2023 12:36-0400 Body weight 94.34 kg No Primary Care Physician [facility] 06-16-2023 12:36-0400 Diastolic blood pressure 80 mm[Hg] No Primary Care Physician [facility] 06-16-2023 12:36-0400 Heart rate 76 /min No Primary Care Physician [facility] 06-16-2023 12:36-0400 Respiratory rate 16 /min No Primary Care Physician [facility] 06-16-2023 12:36-0400 SaO2% (BldA) [Mass fraction] 98 % No Primary Care Physician [facility] 06-16-2023 12:36-0400 Systolic blood pressure 122 mm[Hg] No Primary Care Physician [facility] 05-25-2023 08:11-0400 Body height 162.56 cm No Primary Care Physician [facility] 05-25-2023 08:05-0400 Body mass index (BMI) [Ratio] 35.5 kg/m2 No Primary Care Physician [facility] 05-25-2023 08:05-0400 Body weight 93.95 kg No Primary Care Physician [facility] 05-25-2023 08:05-0400 Diastolic blood pressure 68 mm[Hg] No Primary Care Physician [facility] 05-25-2023 08:05-0400 Systolic blood pressure 110 mm[Hg] No Primary Care Physician [facility] 11-28-2022 16:45-0500 Body temperature 98.49 [degF] Jaci Mendoza APRN.[employer] C[employer]TER Work Phone: [facility] 11-28-2022 16:45-0500 Body weight 96.8 kg Jaci Mendoza APRN.[employer]TER Work Phone: [facility] 11-28-2022 16:45-0500 Diastolic blood pressure 86 mm[Hg] Jaci Mendoza APRN.[employer]TER Work Phone: [facility] 11-28-2022 16:45-0500 Heart rate 92 /min Jaci Mendoza APRN.[employer]TER Work Phone: [facility] 11-28-2022 16:45-0500 Respiratory rate 18 /min Jaci Mendoza APRN.[employer]TER Work Phone: [facility] 11-28-2022 16:45-0500 SaO2% (BldA) [Mass fraction] 97 % Jaci Mendoza 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 Ye Villanueva Work Phone: [facility] Work Phone: 05-14-2022 08:06-0400 Body mass index (BMI) [Ratio] 33.3 kg/m2 Dr. Ye Villanueva Work Phone: [facility] Work Phone: 05-14-2022 08:06-0400 Body weight 88.[address] Ye Villanueva Work Phone: [facility] Work Phone: 05-14-2022 08:06-0400 Diastolic blood pressure 72 mm[Hg] Dr. Ye Villanueva Work Phone: [facility] Work Phone: 05-14-2022 08:06-0400 Systolic blood pressure 110 mm[Hg] Dr. Ye Villanueva Work Phone: [facility] Work Phone: Encounters Encounter Date Encounter Type Care Provider Facility Start: 06-15-2025 ambulatory Mónica Mcgrath NP Facil ity:[facility] Start: 06-06-2025 End: 06-06-[address] Bev Banks MD Work Phone: -Laboratory Specimen Start: 06-06-2025 End: 06-06-2025 Patient encounter procedure Mónica Mcgrath HEAD TENNIS COACH-C -Laboratory Specimen Work Phone: Start: 06-06-2025 End: 06-06-2025 Patient encounter status Mónica Mcrgath HEAD TENNIS COACH-C [facility] Start: 06-06-2025 End: 06-06-[address] Bev Banks MD Work Phone: -[facility] Start: 06-06-2025 End: 06-06-2025 Patient encounter procedure Mónica Alcides HEAD TENNIS COACHRenetta -[facility] Work Phone: Start: 06-06-2025 End: 06-06-2025 ambulatory Bev Adamslay Facility:[facility] Start: 07-17-2024 Encounter for genera l adult medical examination without abnormal findings July [place] [facility] Start: 06-21-2024 End: 06-22-20[facility] Start: 06-18-2023 End: 06-18-2023 ambulatory No Primary Care Physician [facility] Work Phone: Start: 06-18-2023 End: 06-18-2023 Patient encounter procedure No Primary Care Physician [facility]-Laboratory Work Phone: Start: 06-16-2023 End: 06-16-2023 Patient encounter procedure No Primary Care Physician [facility] Work Phone: Start: 05-25-2023 End: 05-25-2023 ambulatory No Primary Care Physician [facility] Work Phone: Start: 05-25-2023 End: 05-25-2023 Patient encounter procedure No Primary Care Physician [facility] Work Phone: Start: 11-28-2022 End: 11-28-2022 ambulatory Facility:[facility] Start: 11-28-2022 End: 11-28-2022 Patient encounter procedure Jaci Mendoza APRN.CNP Work Phone: [facility] Comment on above: Tooth infection (Nandini ju Dx) Start: 05-14-2022 End: 05-14-[address] Ye Villanueva Work Phone: [facility] Procedures Date Procedure Procedure Detail Performing Clinician Start: 06-06-2025 Liquid based cervica l cytology screening Dr. Bev Banks MD Work Phone: Comment on above: NEGATIVE FOR INTRAEP ITHELIAL LESION OR MALIGNANCY. This liquid based Th inPrep(R) pap test was screened withthe use of an image guided system. Start: 06-06-2025 Screening mammography Rhoda Banks MD Work Phone: Start: 05-25-2023 Screening mammography N o Primary Care Physician Start: 05-14-2022 Screening mammography Rhoda Villanueva Work Phone: Start: 08-13-2017 Mammography Jaci Mendoza APRN.CNP Work Phone: Plan of Treatment Date Care Activity Detail Author Start: 07-24-2022 Influenza vaccination INFLUENZA (#1) [facility] Start: 05-02-2022 LIPID SCREEN LIPID SCREEN [facility] Start: 04-30-2022 HPV TESTING HPV TESTING [facility] Start: 04-30-2022 PAP TESTING PAP TESTING [facility] Start: 04-26-2021 COVID-19 VACCINE (3 - Booster for Pfizer series) COVID-19 VACCINE (3 - Booster for Pfizer series) [facility] Start: 05-02-2020 DIABETES SCREEN DIABETES SCREEN [facility] Start: 2019 SHINGRIX VACCINE (1 of 2) SHINGRIX V ACCINE (1 of 2) [facility] Start: 08-13-2018 Mammography MAMMOGRAM [facility] Start: 2014 COLOGUARD (FIT-DNA) COLOGUARD (FIT-D NA) [facility] Start: 2014 Colonoscopy COLONOSCOPY [facility] Start: 2014 COLORECTAL CANCER SCREENING COLORECTAL CANCER SCREENING [facility] Start: [address] COLONOGRAPHY [facility] Start: 2014 FECAL OCCULT BLOOD FECAL OCCULT BLOO D [facility] Start: 2014 SIGMOIDOSCOPY SIGMOIDOSCOPY [facility] Start: 1988 Urine microalbumin profile DTAP,TDAP ,TD (1 - Tdap) [facility] Start: 1987 HEPATITIS C SCREENING HEPATITIS C SC REENING [facility] Start: 1987 HIV SCREENING HIV SCREENING [facility] Start: 1969 HEPATITIS B (1 of 3 - 3-dose series) HEPATITIS B (1 of 3 - 3-dose series) [facility] Immunizations Immunization Date Immunization Notes Care Provider Fa yaw 03-01-2021 Covid (Pfizer) Dr. Ye thompson Work Phone: [facility] 02-08-2021 Covid (Pfizer) Dr. Ye thompson Work Phone: [facility] Payers Date Payer Category Payer Self-pay [id number] 2022 Unknown [id number] 2022 Unknown [employer] PPO [id number] 2022-[facility] [phone] [address] [place] [address] PPO [id number] Unknown [id number] Unknown [facility] [employer] [id number] Unknown [id number] Unknown [id number] Unknown [id number] Unknown [id number] Unknown [id number] Unknown [id number] Social History Date Type Detail Facility Start: 05-14-2022 End: 06-16-2023 Tobacco smoking status SCIS Unknown if ever smoked [facility] Start: 1970 Sex Assigned At Female [facility] Start: 09-04-2011 End: 03-02-2025 Tobacco smoking status NHIS Never smoked tobacco [facility] Start: 09-04-2011 Tobacco use and exposure Smokeless tobacco non-user [facility] Start: 11-28-2022 Alcohol intake 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) [facility] Start: 1970 Sex Assigned At Not on file [facility] Clinical Notes 06-06-2009 to 06-06-2025 Note Date & Type Note Facility 06-06-2025 Evaluation note Diagnosis Onset Date Resolution ASCUS of cervix with negative high risk HPV acute May 7:42am Encounter for routine gynecological examination noneactive June 06, 2025 7:42am Abnormal mammogram of left breast noneactive June 06, 2025 7:42am Monilial intertrigo noneactive June 06, 2025 7:42am [facility] Work Phone: [phone] NoteHNO ID: [id number] Author: Jaci Mendoza APRN.[employer] Service: ? Author Type: Nurse Practitioner Type: Progress Notes Filed: 11/28/2022 5:08 PM Note Text: Subjective Came in with complaints of some left upper face swelling. Patient has noticed some recent teeth discomfort but feels like it stress related to clenching. Patient denies fevers nausea vomiting chills. The history is provided by the patient. No language asst was used. Edema Review of Systems Constitutional: [...] OR EXPOSED ROOT (ELEVATION AND/OR FORCEPS REMOVAL) [place] teeth PAST SURGICAL HISTORY OF 1989 CRYOTHERAPY [...] okay with this care plan. [facility] Mendoza APRN.[facility] History of Present illness Narrative* Jaci Mendoza APRN.[facility] - 11/28/2022 5:03 PM EST Images from the original note were not included. Subjective Came in with complaints of some left upper face swelling. Patient has noticed some recent teeth discomfort but feels like it stress related to clenching. Patient denies fevers nausea vomiting chills. The history is provided by the patient. No language asst was used. Edema Review of Systems Constitutional: [...] OR EXPOSED ROOT (ELEVATION AND/OR FORCEPS REMOVAL) [place] teeth PAST SURGICAL HISTORY OF 1989 CRYOTHERAPY [...] for and is going to follow-up with dayanara. Patient was okay with this care plan. Jaci Mendoza APRN.ATA [facility] History of Past illness Narrative* Problem Noted Date Resolved Date Routine general medical exam ination at a health care facility 06/06/2009 03/24/2012 Overview: 06/06/2009, established from Mallory Villanueva Routine gynecological examination 06/06/2009 03/24/2012 Overview: [facility] Rao documented as of this encounter (statuses as of 11/29/2022) [facility]+Reason for visit Narrative* Chief Complaint 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) Reason for Visit Counseling for hormo ne replacement therapy Family history of breast cancer in mother Encounter for routine gynecological examination [facility] Work Phone: Evaluation note* Diagnosis Onset Date Resolution Status Counseling for hormone replacement therapy acute Family history of breast cancer in mother acute Encounter for routine gynecological examination noneactive [facility] Work Phone: evaluation note* Diagnosis Tooth infection- Primary Acute apical periodontitis of pulpal origin documented in this encounter [facility] Diagnosis Onset Date Resolution Status Possible exposure to STD non eactive Encounter for routine gynecological examination noneactive Monilial vaginitis noneactiv e [facility] Work Phone: Evaluation note* Diagnosis Onset Date Resolution Status Possible exposure to STD non eactive Encounter for routine gynecological examination noneactive Monilial vaginitis noneactiv e Immunization declined noneac tive Screening for colon cancer n oneactive Screening for cardiovascular condition noneactive Establishing care with new doctor, encounter for noneactive Annual physical exam noneact teresa [facility] Work Phone: Evaluation note* Diagnosis Onset Date Resolution Status Admit Date Encounter for routine gynecological examination noneactive May 232024 7:42am [facility] Work Phone: Reason for referral (narrative)No reason for referral information [facility] Work Phone: Family History No Family History Records Found Relationship Condition Age at Onset Recorded Date/T katherine mother Malignant neoplasm of breast Unknown Disorder of thyroid Unknown Hyperlipidemia Unknown Summary Purpose Advance Directives No Advanced Directives Records FoundNo Advanced Directives Records Found Chief Complaint and Reason for Visit Chief Complaint 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) Reason for Visit Possible exposure to STD Encounter for routine gynecological examination Monilial vaginitis Chief Complaint 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) EST NEW PT INT LABS Reason for Visit Possible exposure to STD Encounter for routine gynecological examination Monilial vaginitis Immunization declined Screening for colon cancer Screening for cardiovascular condition Establishing care with new doctor, encounter for Annual physical exam Chief Complaint Admit Date SCREENING June 06, 2025 6:58 am 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) June 06, 2025 7:42 am Reason for Visit Admit Date Encounter for routine gynecological exam ination June 06, 2025 7:42am Reason for Visit Admit Date ASCUS of cervix with negative high risk HPV June 06, 2025 7:42am Encounter for routine gynecological exam ination June 06, 2025 7:42am Abnormal mammogram of left breast May 232024 7:42am Monilial intertrigo June 06, 2025 7:42 am Additional Source Comments Goals (unrecognized section and content) Goals may be documented in a n alternate sectionGoals may be documented in an alternate sectionGoals may be documented in an alternate sectionGoals may be documented in an alternate sectionGoals may be documented in an alternate sectionGoals may be documented in an alternate section INFORMATION SOURCE (unrecogn ized section and content) DATE CREATED AUTHOR 11/29/2022 [facility] DATE CREATED AUTHOR AUTHOR'S ORGANIZ ATION 06/14/2025 [facility] Source Comments (unrecognize d section and content) In the event this informatio n is protected by the Federal Confidentiality of Alcohol and Drug Abuse Patient Records regulations: The Federal rules restrict any use of the information to criminally investigate or prosecute any alcohol or drug abuse patient.[facility] Reason for Visit (unrecogniz ed section [...] Provider, Refer ring Provider Active Mónica Mcgrath HEAD TENNIS COACH, HEAD TENNIS COACH-C Attending Provider Active Team Status: Inactive Member Role Status Dates No Primary Care Physician Primary Care Provider Active Mónica Mcgrath HEAD TENNIS COACH, HEAD TENNIS COACH-C Attending Provider, Referring Provider Active Team Status: [...] Pro vider, Attending Provider, Referring Provider Active Team Status: Active Member Role/Relationship Status Dates Dr. Bev Banks MD Primary Care Provider Active Team Status: Active Member Role/Relationship Status Dates Dr. Bev Banks MD Primary Care Provider Active Start: June 06, 2025 Mónica Mcgrath HEAD TENNIS COACH, HEAD TENNIS COACH-C Attending Provider Active Start: June 06, 2025 Mónica Mcgrath HEAD TENNIS COACH, HEAD TENNIS COACH-C Referring Provider Active Start: June 06, 2025 Team Status: Inactive Member Role/Relationship Status Dates Dr. Bev Banks MD Primary Care Provider Active Start: June 06, 2025 End: June 06, 2025 Dr. Bev Banks MD Referring Provider Active Start: June 06, 2025 End: June 06, 2025 Mónica Mcgrath HEAD TENNIS COACH, HEAD TENNIS COACH-C Attending Provider Active Start: June 06, 2025 End: June 06, 2025 Team Status: Inactive Member Role/Relationship Status Dates Dr. Bev Banks MD Primary Care Provider Active Start: June 06, 2025 End: June 06, 2025 Mónica Mcgrath HEAD TENNIS COACH, HEAD TENNIS COACH-C Attending Provider Active Start: June 06, 2025 End: June 06, 2025 Team Status: Inactive Member Role/Relationship Status Dates Dr. Bev Banks MD Primary Care Provider Active Start: June 06, 2025 End: June 06, 2025 Mónica Mcgrath HEAD TENNIS COACH, HEAD TENNIS COACH-C Attending Provider Active Start: June 06, 2025 End: June 06, 2025 Mónica Mcgrath HEAD TENNIS COACH, HEAD TENNIS COACH-C Referring Provider Active Start: June 06, 2025 End: June 06, 2025 FOR RECORDS PERTAINING TO PATIENTS WHO ARE [...] BE BASED ON THE PRIMARY CLINICAL RECORDS. [facility] [employer] [facility]. provides no warranty or guarantee of the accuracy or completeness of information in this document.
--- NOTE | 2025-06-15 07:35 | US_ITS ---
PROCEDURE: BREAST LIMITED UNILATERAL 06/15/2025 REASON FOR EXAM: 55-year-old female presents for follow-up for the left breast findings seen on examination of 06/06/2025. Family history of breast cancer in her mother at age 75. COMPARISON: Mammogram 06/06/2025, 06/01/2024, 05/25/2023. TECHNIQUE: BREAST LIMITED UNILATERAL FINDINGS: Ultrasound performed of the upper inner left breast. Follow-up examination performed for the left breast findings seen on examination of 06/06/2025, on the present examination there is a gently lobulated avascular hypoechoic mass in the left breast at 11 o'clock 9 cm from the nipple, measuring 1.6 x 1.0 x 0.5 cm. This is the correlate for the mammographic finding. Mammographically this mass has been stable on multiple priors dating back to 2022. US/Breast Limited Unilateral IMPRESSION: Benign left breast mass at 11 o'clock, this has been stable mammographically on multiple priors dating back to 2022. BI-RADS 2: BENIGN RECOMMENDATION: Routine annual follow-up in 1 Year Reading Location: [id number]
== END | disposition home or self-care (01) ==
PROVIDERS: PCP Internal Medicine; Referring Provider Nurse Practitioner Women's Health; Visit Provider Nurse Practitioner Women's Health
DX: R92.8 Other abnormal and inconclusive findings on diagnostic imaging of breast (principal)
CPT/HCPCS: 76642

== ENCOUNTER → 2025-06-27 | Outpatient (CLI) | payer BC, SELFPAY ==
--- OUTSIDE RECORDS SUMMARY | 2025-06-27 07:27 | XMS RPT_ITS | CCD ---
Author Organization [facility] Care Team Providers Care Solid Waste Manager Name Role Phone Dr. Ye Villanueva Referring Provider [phone] [place] AURIST, AURIST-C Mónica Attending Provider Care Physician, No Primary Primary Care Provider Unavailable Unavailable Primary Care Provider Unavailabl e Care Physician, No Primary Primary Care Provider Unavailable Care Physician, No Primary Referring Provider Un available Alcides AURIST, AURIST-C Mónica Attending Provider Dr. Bev Banks Attending Provider [phone] Darren GARCIA, Dr. Pablo Primary Care Provider [phone] [place] AURIST-C, Mónica Attending Provider [phone] [place] AURIST-C, Mónica Referring Provider [phone] Dr. Bev Banks MD Referring Provider Alcides AURIST, Mónica Attending Unavailable Alcides AURIST, Mónica Referring Unavailable [place], Bev Primary Care Unavailable Alcides AURIST, Mónica Attending Unavailable Alcides AURIST, Mónica Referring Unavailable Darren, Bev Primary Care Unavailable [place] AURIST, Mónica Attending Unavailable Darren, Bev Primary Care Unavailable Darren, Bev Primary Care Unavailable [place], Bev Referring Unavailable [place] AURIST, Mónica Attending Unavailable Darren GARCIA, Dr. Pablo Attending Provider Allergies Allergy Classification Reported Allergen(s) Allergy Type Date of Onset Reaction(s) Facility (2 sources) Penicillins; Translations: [PENICILLINS] Propensity to adverse reactions to drug (disorder) 2 GI Upset [facility] Repository Medications Current Medications Medication Drug Class(es) Dates Sig (Normalized) Sig (Original) betamethasone 0.5 mg/ml / clotrimazole 10 mg/ml topical cream (5 sources) Azole Antifungal, Corticosteroid Start: 06-06-2025 Clotrimazole-Bet amethasone 1-0.05 % cream Active 1 NMA TOPICAL TWICE A DAY 45 14 1 June 06, 2025 12:00am Calcium (5 sources) Phosphate Binder, Calcium Start: 06-06-2025 Calcium [...] on above: Take 1 capsule by mo [facility] four times daily for 5 days. Magnesium (5 sources) Start: 06-06-2025 magnesium Active PO June 06, 2025 12:00am Completed/Discontinued Medications Medication Drug Class(es) Dates Sig (Normalized) Sig (Original) calcium carbonate 1500 mg oral tablet (7 sources) Start: 05-25-2023 End: 06-01-2024 take 1 tablet by mouth once daily Calcium Carbonate (Calcium 600) 600 mg calcium (1,500 mg) tablet Discontinued 600 mg PO DAILY May 25, 2023 12:00am June 01, 2024 8:27am Radhika albicans allergenic extract (6 sources) Non-Standardized Food Allergenic Extract, Non-Standardized Fungal Allergenic Extract Start: 06-16-2023 End: 06-01-2024 Yeast 650 mg tablet Discontinued mg PO June 16, 2023 12:00am June 01, 2024 8:27am Start: 06-16-2023 Yeast Active M G PO June 16, 2023 12:00am Cranberry Fruit Concentrate (6 sources) Non-Standardized Food Allergenic Extract, Non-Standardized Plant [...] tablet by lucio th once daily. dim (8 sources) Start: 05-14-2022 End: 05-25-2023 dim Discontinued PO May 14, 2022 12:00am May 25, 2023 8:10am Start: 05-14-2022 dim Active PO May 14, 2022 12:00am Ergocalciferol (Vitamin D2) 1,000 unit capsule (10 sources) Start: 04-11-2024 End: 06-01-2024 Ergocalciferol (Vitamin D2) 1,000 unit capsule Discontinued 1000 U PO DAILY April 11, 2024 3:22pm June 01, 2024 8:27am + K2 Start: 04-11-2024 End: 04-11-2024 Ergocalciferol (Vitamin D2) 1,000 unit capsule Discontinued 1000 U PO DAILY April 11, 2024 12:00am April 11, 2024 3:22pm fluconazole 150 mg oral tablet (20 sources) Azole Antifungal Start: 05-25-2023 End: 06-16-2023 [...] repeat in 3 days hormone replacement therapy (8 sources) Start: 05-14-2022 End: 05-25-2023 hormone replacement therapy Discontinued IMPLANT May 14, 2022 12:00am May 25, 2023 8:10am pellets Start: 05-14-2022 hormone replac ement therapy Active IMPLANT May 14, 2022 12:00am pellets medroxyPROGESTERone acetate 10 mg oral tablet (8 sources) Progestin Start: 05-14-2022 End: 05-24-2022 take 1 tablet by mouth once daily Medroxyprogesterone 10 mg tablet Discontinued 10 mg PO daily 10 10 0 May 14, 2022 12:00am May 23, 2022 12:00am May 24, 2022 12:05am Multivit With Min-Folic Acid (One-A-Day Women Vitacraves) 200 mcg tablet,chewable (6 sources) Start: 06-16-2023 End: 04-11-2024 take 1 [...] Comment on above: Take by mouth. serene (8 sources) Start: 05-14-2022 End: 04-11-2024 serene Discontinued PO May 14, 2022 12:00am April 11, 2024 3:21pm Start: 05-14-2022 serene Active PO May 14, 2022 12:00am spironolactone 25 mg oral tablet (16 sources) Aldosterone Antagonist Start: 06-16-2023 End: 06-06-2025 take 1 tablet by mouth once daily Spironolactone 25 mg tablet Discontinued 25 mg PO DAILY 90 July 27, 2024 4:54pm June 06, 2025 7:52am Start: 06-16-2023 Spironolactone Active MG PO June 16, 2023 12:00am Problems Problem Classification Problem Date Documented Date Episodic/Chronic Administrative/social admission (5 sources) Patient encounter status; Translations: [Other specified counseling] Episodic Cancer of cervix (9 sources) Atypical squamous cells of undetermined significance on cervical Papanicolaou smear; Translations: [Atypical squamous cells of undetermined significance on cytologic smear of cervix (ASC-US)] 06-08-2024 Episodic Comment on above: repeat pap 2024 repeat pap 2024 neg pap, +HPV. Rpt 1 yr. Disorders of lipid metabolism (6 sources) Hyperlipidemia; Translations: [Hyperlipidemia, unspecified] 09-28-2007 Chronic [...] depressive episodes] Onset: 07-17-2009 07-17-2009 Chronic Mycoses (6 sources) Candidiasis of vagina; Translations: [Anogenital candidiasis in female] 05-25-2023 Episodic Other nutritional; endocrine; and metabolic disorders (6 sources) Obesity; Translations: [Obesity, unspecified] Onset: 06-06-2009 06-06-2009 Chronic Other nutritional; endocrine; and metabolic disorders (1 source) Body mass index 30+ - obesity; Translations: [Obesity, unspecified] 06-26-2025 Chronic Other screening for suspected conditions (not mental disorders or infectious disease) (9 sources) Encounter for screening for malignant neoplasm of colon; Translations: [Special screening for malignant neoplasms of colon] Onset: 06-12-2025 06-16-2023 Episodic Residual codes; unclassified (8 sources) Family history of malignant neoplasm of [...] patient refusal] 06-16-2023 Episodic Residual codes; unclassified (6 sources) Medication refused; Translations: [Immunization not carried out because of patient refusal] 06-21-2024 Episodic Results Test Name Value Interpretation Reference Range Facility Breast Limited Unilateralon 06-15-2025 Breast Limited Unilateral [facility] Imaging Services [address] [place] [address] Breast Limited Unilateral MR#: [id number] Acct: [id number] Name: GRAZYNA UPTON Rep #: [id number] : 1970 F 55 From: Ileana Spencer MD PCP: Dr. Bev Banks MD Status: [facility] CLI Study: Breast Limited Unilateral Date of Exam: Exam# [id number] Ordering Dr: Mónica Mcgrath AURIST AURIST -C PROCEDURE: BREAST LIMITED UNILATERAL 06/15/2025 REASON FOR EXAM: 55-year-old female presents for follow-up for the left breast findings seen on examination of 06/06/2025. Family history of breast cancer in her mother at age 75. COMPARISON: Mammogram 06/06/2025, 06/01/2024, 05/25/2023. TECHNIQUE: BREAST LIMITED UNILATERAL FINDINGS: Ultrasound performed of the upper inner left breast. Follow-up examination performed for the left breast findings seen on examination of 06/06/2025, on the present examination there is a gently lobulated avascular hypoechoic mass in the left breast at 11 o'clock 9 cm from the nipple, measuring 1.6 x 1.0 x 0.5 cm. This is the correlate for the mammographic finding. Mammographically this mass has been stable on multiple priors dating back to 2022. US/Breast Limited Unilateral IMPRESSION: Benign left breast mass at 11 o'clock, this has been stable mammographically on multiple priors dating back to 2022. BI-RADS 2: BENIGN RECOMMENDATION: Routine annual follow-up in 1 Year Reading Location: [id number] CC: ED Mcgrath; Dr. Bev Banks MD [place] Supervisor: Signed Normal [facility] PAP IG HPV APTIMA 16/18,45on 06-09-2025 ADEQ Comment Normal . [facility] Comment on above: Order Comment: Speci men Comment: [id number] Specimen Comment: No. of containers..01 ThinPrep Vial Result Comment: Sati sfactory for evaluation. Endocervical and/or squamous metaplastic cells (endocervical component) are present. Performed By: #### L 7400.0280 #### [facility] [address] [place], [place], [id number] COMM . Normal . [facility] Comment on above: Order Comment: Speci men Comment: [id number] Specimen Comment: No. of containers..01 ThinPrep Vial Performed By: #### L 7400.0280 #### [facility] [address] [place], [place], [id number] COMMENT Comment Normal . [facility] Comment on above: Order Comment: Speci men Comment: [id number] Specimen Comment: No. of containers..01 ThinPrep Vial Result Comment: This liquid based ThinPrep(R) pap test was screened with the use of an image guided system. Performed By: #### L 7400.0280 #### [facility] [address] [place], [address] DIAG Comment Normal . [facility] Comment on above: Order Comment: Speci men Comment: [id number] Specimen Comment: No. of containers..01 ThinPrep Vial Result Comment: NEGA TIVE FOR INTRAEPITHELIAL LESION OR MALIGNANCY. Performed By: #### L 7400.0280 #### [facility] [address] [place], [address] HPV APTIMA, HR Positive Abnormal Negative [facility] Comment on above: Order Comment: Speci men Comment: [id number] Specimen Comment: No. of containers..01 ThinPrep Vial Result Comment: This nucleic acid amplification test detects fourteen high- risk HPV types (16,18,31,33,35,39,45,51,52,56,58,59,66,68) without differentiation. Performed By: #### L 7400.0280 #### [facility] [address] [place], [address] HPV Albina 18,45 Negative Normal Negative [facility] Comment on above: Order Comment: Speci men Comment: [id number] Specimen Comment: No. of containers..01 ThinPrep Vial Result Comment: Perf ormed at: - [address] [id number] Table Lever Operator: Imani Jha MD, Phone: [phone] Performed at: = - [address] [id number] Table Lever Operator: Imani Jha MD, Phone: [phone] Performed By: #### L 7400.0280 #### [facility] [address] [place], [address] HPV Albina Rfx Comment Normal . [facility] Comment on above: Order Comment: Speci men Comment: [id number] Specimen Comment: No. of containers..01 ThinPrep Vial Result Comment: Christian mahajan, see HPV Genotype results. Performed By: #### L 7400.0280 #### [facility] [address] [place], [place], [id number] HPV Genotype 16 Negative Normal Negative [facility] Comment on above: Order Comment: Speci men Comment: [id number] Specimen Comment: No. of containers..01 ThinPrep Vial Performed By: #### L 7400.0280 #### [facility] [address] [place], [address] PAPSMR Comment Normal . [facility] Comment on above: Order Comment: Speci men Comment: [id number] Specimen Comment: No. of containers..01 ThinPrep Vial Result Comment: The Pap smear is a screening test designed to aid in the detection of premalignant and malignant conditions of the uterine cervix. It is not a diagnostic procedure and should not be used as the sole means of detecting cervical cancer. Both false-positive and false-negative reports do occur. Performed By: #### L 7400.0280 #### [facility] [address] [facility] [place], [place], [id number] PERFORM Comment Normal . [facility] Comment on above: Order Comment: Speci men Comment: [id number] Specimen Comment: No. of containers..01 ThinPrep Vial Result Comment: Erin Arnett, Fishing Worker (ASCP) Performed By: #### L 7400.0280 #### [facility] [address] [place], [address] Breast imaging reportOrdered By: Juan Guzman on 06-06-2025 Study report [facility] Imaging Services [address] [place], [place] [address] SCRN MAMM (CAD)W/KASEY BILAT MR#: [id number] Acct: [id number] Name: GRAZYNA UPTON SAMIA Rep #: [id number] : 1970 F 55 From: Dick Guzman MD PCP: Dr. Bev Banks MD Status: REG CLI Study:SCRN MAMM (CAD)W/KASEY BILAT Date of Exa m: 06/06/25 Exam# [id number] Ordering Dr: Mónica Mcgrath NP AURIST-C EXAM: SCRN MAMM (CAD)W/KASEY BILAT DATE: 06/06/2025 [...] be mailed to the patient. Reading Location: [facility] CC: AURIST-C Mónica Mcgrath; Dr. Bev Banks MD ~ [place] Supervisor: Signed [facility] Cervical or vaginal specimen microscopic examination by liquid based cytology (reportOrdered By: Mónica Mcgrath on 06-06-2025 Cytology report Cyto stain.thin prep Doc (Cvx/Vag) Comment . [facility] Comment on above: Criteria met, see HP V Genotype results. Cervical or vagninal specime n microscopic examination by cytology stain (reported asOrdered By: Mónica Mcgrath on 06-06-2025 Cytology report Cyto stain Doc (Cvx/Vag) Comment . [facility] Comment on above: The Pap smear [...] E6+E7 mRNA CLEMENTINE+probe Ql (Cvx) Negative Negative [facility] Comment on above: Performed at: WB - [facility] [address] [id number] Director: Imani Jha MD, Phone: [phone] at: =G - [facility] [address] [id number] Director: Imani Jha MD, Phone: [phone] Cervical specimen human anil lloma virus (HPV) type 16 DNA detection by probe with sigOrdered By: Mónica Mcgrath on 06-06-2025 HPV 16 DNA Probe+sig amp Ql (Cvx) Negative Negative [facility] Detection in cervical specim en of any of human papilloma virus (HPV) 16, 18, 31, 33,Ordered By: Mónica Mcgrath on 06-06-2025 HPV 16+18+31+33+35+39+45+51+5 2+56+58+59+66+68 DNA Probe+sig amp Ql (Cvx) Positive High Negative [facility] Comment on above: This nucleic acid am plification test detects fourteen high-risk HPV types (16,18,31,33,35,39,45,51,52,56,58,59,66,68)without differentiation. Laboratory - CytologyOrdered By: Mónica Mcgrath on 06-06-2025 Fishing Worker Cyto stain Nom (Cvx/Vag) [ID] Comment . [facility] Comment on above: Caroline Arnett, Cytol ogist (ASCP) Laboratory - Miscellaneous t estsOrdered By: Mónica Mcgrath on 06-06-2025 Service comment (Unsp spec) [Interp] . . [facility] No Panel InformationOrdered By: Mónica Mcgrath on 06-06-2025 Pap Smear Specimen Adequacy Comment . [facility] Comment on above: Satisfactory for micheline luation. Endocervical and/or squamous metaplasticcells (endocervical component) are present. 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 Wringer Operator Required: No Is patient in pain?: No Allergies No Known Allergies Allergy (Verified 06/06/25 07:59) Medications ???Medication ???Instructions ???Recorded ???Confirmed ???Type Calcium PO 06/06/25 06/06/25 History clotrimazole-betamet hasone 1 1 applic topical BID 2 weeks #45 0 06/06/25 06/06/25 Rx %-0.05 % topical cream grams magnesium PO 06/06/25 History Is last menstrual period known: No Post menopausal: Yes Patient : No : No [facility] Medical History Family history of breast cancer in mother Abnormal Pap smear of cervix Surgical History History of cryosurgery Family History Mother Breast cancer Thyroid disorder Hyperlipidemia Social History household members: none current occupational status: employed 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 Normal [facility] SCRN MAMM (CAD)W/KASEY BILATo n 06-06-2025 SCRN MAMM (CAD)W/KASEY BILAT [facility] Imaging Services [address] [place] [address] SCRN MAMM (CAD)W/KASEY BILAT MR#: [id number] Acct: [id number] Name: GRAZYNA UPTON Rep #: [id number] : 1970 F 55 From: Juan hoffmann MD PCP: Dr. Bev Banks MD Status: REG CLI Study: SCRN MAMM (CAD)W/KASEY BILAT Date of Exam: 05/23 04/16 Exam# [id number] Ordering Dr: Mónica Mcgrath AURIST AURIST -C EXAM: SCRN MAMM (CAD)W/KASEY BILAT DATE: [...] be mailed to the patient. Reading Location: [id number] CC: AURIST-C Mónica Mcgrath; Dr. Bev Banks MD [place] Supervisor: Signed Normal [facility] Absolute lymphocyte countOrd ered By: Bev Banks on 06-18-2023 Lymphocytes Auto (Unsp spec) [#/Vol] 1.49 10*3/uL 0.83-4.51 [facility] Basophil percentageOrdered B y: Bev Banks on 06-18-2023 Basophils/100 WBC (Bld) 1.0 % 0-1 [facility] Bilirubin [Mass/Vol] 0.40 mg/dL 0.20-1.00 [facility] Comment on above: For patients on eltr ombopag therapy, use of Dimension [place] TBIL is not recommended. Chloride [Moles/Vol] 105 mmol/L 98-107 [facility] Cholesterol [Mass/Vol] 236 mg/dL <200 [facility] Comment on above: <200 mg/dL Desirable 200-240 mg/dL Borderline >240 mg/dL High Risk Eosinophils/100 WBC (Bld) 4.0 % 0-5 [facility] Glucose [Mass/Vol] 93 mg/dL 74-106 [facility] Neutrophils (Bld) [#/Vol] 3.9 10*3/uL 2.0-7.7 [facility] Neutrophils/100 WBC (Bld) 62.3 % 47-70 [facility] Potassium [Moles/Vol] 4.1 mmol/L 3.5-5.1 [facility] Protein [Mass/Vol] 8.2 g/dL 6.4-8.2 [facility] Sodium [Moles/Vol] 138 mmol/L 136-145 [facility] Triglyceride [Mass/Vol] 113 mg/dL <199 [facility] Comment on above: The drugs N-Acetylcy steine and Metamizole may falsely depress this assay.Serum Triglycerides Reference Interval Normal <150 mg/dL Borderline high 150 - 199 mg/dL High 200 - 499 mg/dL Very High > or = 500 mg/dL WBC (Bld) [#/Vol] 6.2 10*3/uL 4.4-11.0 [facility] Blood erythrocytes count (nu mber/volume)Ordered By: Bev Banks on 06-18-2023 RBC (Bld) [#/Vol] 4.29 10*6/uL 4.2-5.4 [facility] Blood hemoglobin measurement (mass/volume)Ordered By: Bev Banks on 06-18-2023 Hemoglobin (Bld) [Mass/Vol] 13.2 g/dL 12.0-15.0 [facility] Blood lymphocytes/100 leukoc ytesOrdered By: Bev Banks on 06-18-2023 Lymphocytes/100 WBC (Bld) 24.0 % 19-41 [facility] Blood monocytes/100 leukocyt esOrdered By: Bev Banks on 06-18-2023 Monocytes/100 WBC (Bld) 8.2 % 0-10 [facility] Blood platelet mean volumeOr dered By: Bev Banks on 06-18-2023 Platelet mean volume (Bld) [Entitic vol] 10.6 fL 6.2-12.0 [facility] Determination of erythrocyte mean corpuscular volume (MCV)Ordered By: Bev Banks on 06-18-2023 MCV (RBC) [Entitic vol] 94.6 fL 81-99 [facility] Hematocrit Auto (Bld) [Volum e fraction]Ordered By: Bev Banks on 06-18-2023 Hematocrit (Bld) [Volume fraction] 40.6 % 37-47 [facility] - Chemistry and C hemistry - challengeOrdered By: Bev Banks on 06-18-2023 ALP [Catalytic activity/Vol] 117 U/L 45-117 [facility] ALT [Catalytic activity/Vol] 25 U/L 13-56 [facility] CO2 [Moles/Vol] 26.0 mmol/L 21.0-32.0 [facility] Globulin (S) [Mass/Vol] 4.7 g/dL 2.2-4.2 [facility] Urea nitrogen/Creatinine [Mass ratio] 19.5 mg/mg 10-20 [facility] - Hematology and Cell countsOrdered By: Bev Banks on 06-18-2023 Erythrocyte distribution width (RBC) [Entitic vol] 44.5 fL 35.1-43.9 [facility] Erythrocyte distribution width (RBC) [Ratio] 12.9 % 11.6-14.6 [facility] Immature granulocytes/100 WBC (Bld) 0.500 % 0.0-0.9 [facility] Comment on above: IG% - Immature Granu locytes (promyelocytes, myelocytes and metamyelocytes) > 1% indicates that a LEFT SHIFT is Present. MCH (RBC) [Entitic mass] 30.8 pg 27.0-32.0 [facility] Nucleated RBC/100 WBC (Bld) [Ratio] 0 % 0-5 [facility] MCHC Auto (RBC) [Mass/Vol]Or dered By: Bev Banks on 06-18-2023 MCHC (RBC) [Mass/Vol] 32.5 g/dL 32-36 [facility] No Panel InformationOrdered By: Bev Banks on 06-18-2023 Estimated GFR (MDRD) Amer 82 mL/min >60 [facility] Comment on above: GFR Calc Estimated GFR (MDRD) Non-Af Amer 67 mL/min >60 [facility] Comment on above: Non- GFR Calc Platelets bldOrdered By: Billy Banks on 06-18-2023 Platelets (Bld) [#/Vol] 227 10*3/uL 150-450 [facility] Serum or plasma albumin tanika urement (mass/volume)Ordered By: Bev Banks on 06-18-2023 Albumin [Mass/Vol] 3.5 g/dL 3.2-5.0 [facility] Serum or plasma albumin/glob ulin mass ratioOrdered By: Bev Banks on 06-18-2023 Albumin/Globulin [Mass ratio] 0.7 {ratio} 0.9-2.4 [facility] Serum or plasma calcium tanika urement (mass/volume)Ordered By: Bev Banks on 06-18-2023 Calcium [Mass/Vol] 9.0 mg/dL 8.5-10.1 [facility] Serum or plasma cholesterol in HDL measurement (mass/volume)Ordered By: Bev Banks on 06-18-2023 Cholesterol in HDL [Mass/Vol] 71 mg/dL >40 [facility] Comment on above: The drugs N-Acetylcy steine and Metamizole may falsely depress this assay. Reference Range HDL <40 mg/dL Low HDL Cholesterol HDL >or= 60 mg/dL High HDL Cholesterol Serum or plasma cholesterol in VLDL measurement (mass/volume)Ordered By: Bev Banks on 06-18-2023 Cholesterol in VLDL [Mass/Vol] 23 mg/dL 5-40 [facility] Serum or plasma creatinine m easurement (mass/volume)Ordered By: Bev Banks on 06-18-2023 Creatinine [Mass/Vol] 0.92 mg/dL 0.55-1.02 [facility] Comment on above: The validity of the calculated GFR & GFRAA in patients over 70 years has not been determined. Clinical correlation is essential. Serum or plasma low density lipoprotein (LDL) cholesterol measurement (mass/volume)Ordered By: Bev Banks on 06-18-2023 Cholesterol in LDL [Mass/Vol] 142 mg/dL 0-130 [facility] Serum or plasma urea nitroge n measurement (mass/volume)Ordered By: Bev Banks on 06-18-2023 Urea nitrogen [Mass/Vol] 18 mg/dL 7-18 [facility] Thin prep Papanicolaou smear with manual screeningOrdered By: Bev Banks on 06-18-2023 Thin prep Papanicolaou smear with manual screening 18 U/L 15-37 [facility] Thin prep Papanicolaou smear with manual screening 7 5-15 [facility] Chlamydia trachomatis rRNA d etection by probe and target amplification methodOrdered By: Mónica Mcgrath on 05-25-2023 C. trachomatis rRNA CLEMENTINE+probe Ql (Unsp spec) Negative Negative [facility] - Microbiology an d Antimicrobial susceptibilityOrdered By: Mónica Mcgrath on 05-25-2023 N. gonorrhoeae DNA CLEMENTINE+probe Ql (Unsp spec) Negative Negative [facility] Comment on above: Performed at: =[address] [id number] Director: Imani Jha MD, Phone: [phone] No Panel Informationon 05-25 POC Trichomonas (Rapid) Negative [facility] CNOVon 11-28-2022 CNOV Office Visit (UCWSTR) ALEXSANDRAGRAZYNA Mallory ([id number]) 1970 F Date Time Provider Department 11/28/22 4:45 PM JACI MENDOZA [facility] During your visit today, we recorded the following information about you: Temperature Pulse Respiration Blood pressure 98.5 degrees 92/minute 18/minute 138/86 Weight 96.8 kg Jaci Mendoza APRN.CRANE OPERATOR 11/28/2022 5:08 PM Signed Subjective Came in with complaints of some left upper face swelling. Patient has noticed some recent teeth discomfort but feels like it stress related to clenching. Patient denies fevers nausea vomiting chills. The history is provided by the patient. No language arts teacher was used. Edema Review of Systems Constitutional: [...] OR EXPOSED ROOT (ELEVATION AND/OR FORCEPS REMOVAL) [place] teeth PAST SURGICAL HISTORY OF 1989 CRYOTHERAPY [...] okay with this care plan. Jaci Mendoza APRN.CRANE OPERATOR Allergies As of Date: 11/28/2022 Noted [...] NEC/NOS [E78.5] Routine general medical examination at [facility]*06/06/2009 03/24/2012 Class: Chronic Routine gynecological examination [Z01.419] 06/06/2009 03/24/2012 Class: Chronic OBESITY NOS [E66.9] 06/06/2009 Depressive Disorder, not Elsewhere Classified [*07/17/2009 Prescriptions ordered this encounter Disp Refills Start End CEPHALEXIN 500 MG CAPSULE 20 c* 0 11/28/2022 12/03/2022 Route: ORAL Sig: Take 1 capsule by mouth four times daily for 5 days. Encounter Status:Closed by JACI MENDOZA on 11/28/22 Normal [facility] Vital Signs Date Time Vital Sign Value Performing Clinician Facility 06-26-2025 13:17-0400 Body height 162.[address] Bev Banks MD Work Phone: [facility] 06-26-2025 13:17-0400 Body mass index (BMI) [Ratio] 38.6 kg/m2 Dr. Bev Banks MD Work Phone: [facility] 06-26-2025 13:17-0400 Body temperature 96.8 [degF] Dr. Bev Banks MD Work Phone: [facility] 06-26-2025 13:17-0400 Body weight 102.[address] Bev Banks MD Work Phone: [facility] 06-26-2025 13:17-0400 Diastolic blood pressure 72 mm[Hg] Dr. Bev Banks MD Work Phone: [facility] 06-26-2025 13:17-0400 Heart rate 95 /min Dr. Bev Banks MD Work Phone: [facility] 06-26-2025 13:17-0400 Respiratory rate 18 /min Dr. Bev Banks MD Work Phone: [facility] 06-26-2025 13:17-0400 SaO2% (BldA) [Mass fraction] 97 % Dr. Bev Banks MD Work Phone: [facility] 06-26-2025 13:17-0400 Systolic blood pressure 118 mm[Hg] Dr. Bev Banks MD Work Phone: [facility] 06-06-2025 07:50-0400 Body height 162.[address] Bev Banks MD Work Phone: [facility] 06-06-2025 07:50-0400 Body mass index (BMI) [Ratio] 38.3 kg/m2 Dr. Bev Banks MD Work Phone: [facility] 06-06-2025 07:50-0400 Body weight 101.[address] Bev Banks MD Work Phone: [facility] 06-06-2025 07:50-0400 Diastolic blood pressure 83 mm[Hg] Dr. Bev Banks MD Work Phone: [facility] 06-06-2025 07:50-0400 Systolic blood pressure 120 mm[Hg] Dr. Bev Banks MD Work Phone: [facility] 06-16-2023 12:36-0400 Body height 162.56 cm No Primary Care Physician [facility] 06-16-2023 12:36-0400 Body mass index (BMI) [Ratio] 35.6 kg/m2 No Primary Care Physician [facility] 06-16-2023 12:36-0400 Body temperature 98.3 [degF] No Primary Care Physician [facility] 06-16-2023 12:36-0400 Body weight 94.34 kg No Primary Care Physician [facility] 06-16-2023 12:36-0400 Diastolic blood pressure 80 mm[Hg] No Primary Care Physician [facility] 06-16-2023 12:36-0400 Heart rate 76 /min No Primary Care Physician [facility] 06-16-2023 12:36-0400 Respiratory rate 16 /min No Primary Care Physician [facility] 06-16-2023 12:36-0400 SaO2% (BldA) [Mass fraction] 98 % No Primary Care Physician [facility] 06-16-2023 12:36-0400 Systolic blood pressure 122 mm[Hg] No Primary Care Physician [facility] 05-25-2023 08:11-0400 Body height 162.56 cm No Primary Care Physician [facility] 05-25-2023 08:05-0400 Body mass index (BMI) [Ratio] 35.5 kg/m2 No Primary Care Physician [facility] 05-25-2023 08:05-0400 Body weight 93.95 kg No Primary Care Physician [facility] 05-25-2023 08:05-0400 Diastolic blood pressure 68 mm[Hg] No Primary Care Physician [facility] 05-25-2023 08:05-0400 Systolic blood pressure 110 mm[Hg] No Primary Care Physician [facility] 11-28-2022 16:45-0500 Body temperature 98.49 [degF] Jaci Mendoza APRN.CRANE OPERATOR Work Phone: [facility] 11-28-2022 16:45-0500 Body weight 96.8 kg Jaci Mendoza APRN.CRANE OPERATOR Work Phone: [facility] 11-28-2022 16:45-0500 Diastolic blood pressure 86 mm[Hg] Jaci Mendoza APRN.CRANE OPERATOR Work Phone: [facility] 11-28-2022 16:45-0500 Heart rate 92 /min Jaci Mendoza APRN.CRANE OPERATOR Work Phone: [facility] 11-28-2022 16:45-0500 Respiratory rate 18 /min Jaci Mendoza APRN.CRANE OPERATOR Work Phone: [facility] 11-28-2022 16:45-0500 SaO2% (BldA) [Mass fraction] 97 % Jaci Mendoza APRN.CRANE OPERATOR Work Phone: [facility] 11-28-2022 16:45-0500 Systolic blood pressure 138 mm[Hg] Jaci Mendoza APRN.CRANE OPERATOR Work Phone: [facility] 05-14-2022 08:06-0400 Body height 162.[address] Ye Villanueva Work Phone: [facility] Work Phone: 05-14-2022 08:06-0400 Body mass index (BMI) [Ratio] 33.3 kg/m2 Dr. Ye Villanueva Work Phone: [facility] Work Phone: 05-14-2022 08:06-0400 Body weight 88.[address] Ye Villanueva Work Phone: [facility] Work Phone: 05-14-2022 08:06-0400 Diastolic blood pressure 72 mm[Hg] Dr. Ye Villanueva Work Phone: [facility] Work Phone: 05-14-2022 08:06-0400 Systolic blood pressure 110 mm[Hg] Dr. Ye Villanueva Work Phone: [facility] Work Phone: Encounters Encounter Date Encounter Type Care Provider Facility Start: 06-26-2025 End: 06-26-[address] Bev Banks MD Work Phone: -[facility] Start: 06-26-2025 End: 06-26-[address] Bev Banks MD -[facility] Work Phone: Start: 06-15-2025 End: 06-15-[address] Bev Banks MD Work Phone: [facility] Start: 06-15-2025 End: 06-15-2025 Patient encounter procedure Mónica Alcides AURIST-C -[facility] Work Phone: Start: 06-15-2025 End: 06-15-2025 ambulatory Mónica Mcgrath AURIST Facility:[facility] Start: 06-06-2025 End: 06-06-[address] Bev Banks MD Work Phone: -[facility] Spec[facility] Start: 06-06-2025 End: 06-06-2025 Patient encounter procedure Mónica Evanstings AURIST-C -Laboratory Specimen Work Phone: Start: 06-06-2025 End: 06-06-2025 Patient encounter status Mónica Chesapeake AURIST-C [facility] Start: 06-06-2025 End: 06-06-[address] [facility] Start: 06-06-2025 End: 06-06-2025 Patient encounter procedure Mónica Mcgrath A[facility]IST[facility] Work Phone: Start: 06-06-2025 End: 06-06-2025 ambulatory Mónica Chesapeake AURIST Facility:[facility] Start: 06-18-2023 End: 06-18-2023 ambulatory No Primary Care Physician [facility] Work Phone: Start: 06-18-2023 End: 06-18-2023 Patient encounter procedure No Primary Care Physician [facility] Work Phone: Start: 06-16-2023 End: 06-16-2023 Patient encounter procedure No Primary Care Physician [facility] Work Phone: Start: 05-25-2023 End: 05-25-2023 ambulatory No Primary Care Physician [facility] Work Phone: Start: 05-25-2023 End: 05-25-2023 Patient encounter procedure No Primary Care Physician [facility] Work Phone: Start: 11-28-2022 End: 11-28-2022 ambulatory Facility:[facility] Start: 11-28-2022 End: 11-28-2022 Patient encounter procedure Jaci Mendoza APRN.CNP Work Phone: [facility] Comment on above: Tooth infection (Nandini ju Dx) Start: 05-14-2022 End: 05-14-[address] Ye Villanueva Work Phone: [facility] Procedures Date Procedure Procedure Detail Performing Clinician Start: 06-15-[address] Bev Banks MD Work Phone: Start: 06-06-2025 Liquid based cervica l cytology [...] Work Phone: Start: 08-13-2017 Mammography Jaci Mendoza AARON Work Phone: Plan of Treatment Date Care Activity Detail Author Start: 07-24-2022 Influenza vaccination INFLUENZA (#1) [facility] Start: 05-02-2022 LIPID SCREEN LIPID SCREEN [facility] Start: 04-30-2022 HPV TESTING HPV TESTING [facility] Start: 04-30-2022 PAP TESTING PAP TESTING [facility] Start: 04-26-2021 COVID-19 VACCINE (3 - Booster for Pfizer series) COVID-19 VACCINE (3 - Booster for Pfizer series) [facility] Start: 05-02-2020 DIABETES SCREEN DIABETES SCREEN [facility] Start: 2019 SHINGRIX VACCINE (1 of 2) SHINGRIX VACCINE (1 of 2) [facility] Start: 08-13-2018 Mammography MAMMOGRAM [facility] Start: 2014 COLOGUARD (FIT-DNA) COLOGUARD (FIT-DNA) [facility] Start: 2014 Colonoscopy COLONOSCOPY [facility] Start: 2014 COLORECTAL CANCER SCREENING COLORECTAL CANCER SCREENING [facility] Start: [address] COLONOGRAPHY [facility] Start: 2014 FECAL OCCULT BLOOD FECAL OCCULT BLOOD [facility] Start: 2014 SIGMOIDOSCOPY SIGMOIDOSCOPY [facility] Start: 1988 Urine microalbumin profile DTAP,TDAP,TD (1 - Tdap) [facility] Start: 1987 HEPATITIS C SCREENING HEPATITIS C SCREENING [facility] Start: 1987 HIV SCREENING HIV SCREENING [facility] Start: 1969 HEPATITIS B (1 of 3 - 3-dose series) HEPATITIS B (1 of 3 - 3-dose series) [facility] CBC W Auto Different ial panel - Blood [facility] Comprehensive metabo lic 1999 panel - Serum or Plasma [facility] Lipid 1996 panel - S seamus or Plasma [facility] Thyroid stimulating hormone measurement [facility] Immunizations Immunization Date Immunization Notes Care Provider Fa yaw 03-01-2021 Covid (Pfizer) Dr. Ye thompson Work Phone: [facility] 02-08-2021 Covid (Pfizer) Dr. Ye thompson Work Phone: [facility] Payers Date Payer Category Payer Self-pay [id number] 2025 Self-pay [id number] 2022 Unknown [id number] 2022 Unknown EB [employer] ACCE SS PPO [id number] 2022-Present [phone] [address] [place] [address] PPO [id number] Unknown [id number] Unknown [employer] [employer] [id number] Unknown [id number] Unknown [id number] Unknown [id number] Unknown [id number] Social History Date Type Detail Facility Start: 05-14-2022 End: 06-16-2023 Tobacco smoking status NHIS Unknown if ever smoked [facility] Start: 1970 Sex Assigned At Female [facility] Start: 09-04-2011 End: 03-02-2025 Tobacco smoking status NHIS Never smoked tobacco [facility] Start: 09-04-2011 Tobacco use and exposure Smokeless tobacco non-user [facility] Start: 11-28-2022 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 Bev Banks MD Status: REG CLI Study:Breast Limited Unilateral Date of Exam: 06/15/25 Exam# [id number] Ordering Dr: Mónica Mcgrath AURIST AURIST-C PROCEDURE: BREAST LIMITED UNILATERAL 06/15/2025 REASON FOR EXAM: 55-year-old female presents for follow-up for the left breast findings seen on examination of 06/06/2025. Family history of breast cancer in her mother at age 75. COMPARISON: Mammogram 06/06/2025, 06/01/2024, 05/25/2023. TECHNIQUE: BREAST LIMITED UNILATERAL FINDINGS: Ultrasound performed of the upper inner left breast. Follow-up examination performed for the left breast findings seen on examinationof 06/06/2025, on the present examination there is a gently lobulated avascular hypoechoic mass in the left breast at 11 o'clock9 cm from the nipple, measuring 1.6 x 1.0 x 0.5 cm. This is the correlate for the mammographic finding. Mammographically this mass has been stable on multiple priors dating back to 2022. US/Breast Limited Unilateral IMPRESSION: Benign left breast mass at 11 o'clock, this has been stable mammographically on multiple priors dating back to 2022. BI-RADS 2: BENIGN RECOMMENDATION: Routine annual follow-up in 1 Year Reading Location: [id number] CC: ED Mcgrath; Dr. Bev Banks MD ~ [place] Supervisor: Signed [facility] 06-06-2025 Evaluation note Diagnosis Onset Date Resolution ASCUS of cervix with negative high risk HPV acute May 7:42am Encounter for routine gynecological examination noneactive June 06, 2025 7:42am Abnormal mammogram of left breast noneactive June 06, 2025 7:42am Monilial intertrigo noneactive June 06, 2025 7:42am [facility] Work Phone: 1(624) 117-279807-15-2025 Evaluation note* Diagnosis Onset Date Resolution Status Admit Date ASCUS of cervix with negativ e high risk HPV acute June 06, 2025 7:42am Encounter for routine gynecological examination noneactive May 232024 7:42am Abnormal mammogram of left breast noneactive June 06, 2025 7:42am Monilial intertrigo noneactive June 06, 2025 7:42am Immunization declined noneactive Jun 1:02pm Screening for colon cancer noneactiv June 26, 2025 1:02pm Screening for cardiovascular condition noneactive June 26, 2025 1:02pm Annual physical exam noneactive 2024 1:02pm Obesity with body mass index (BMI) of 30.0 to 39.9 noneactive June 1:02pm [facility] Work Phone: 1(369) 103-655701-06-2023 NoteHNO ID: [id number] Author: Jaci Mendoza APRN.CRANE OPERATOR Service: ? Author Type: Nurse Practitioner Type: Progress Notes Filed: 11/28/2022 5:08 PM Note Text: Subjective Came in with complaints of some left upper face swelling. Patient has noticed some recent teeth discomfort but feels like it stress related to clenching. Patient denies fevers nausea vomiting chills. The history is provided by the patient. No language arts teacher was used. Edema Review of Systems Constitutional: [...] OR EXPOSED ROOT (ELEVATION AND/OR FORCEPS REMOVAL) [place] teeth PAST SURGICAL HISTORY OF 1989 CRYOTHERAPY [...] okay with this care plan. [facility]endo[facility] History of Present illness Narrative* Jaci Mendoza APRN.ATA - 11/28/2022 5:03 PM EST Images from the original note were not included. Subjective Came in with complaints of some left upper face swelling. Patient has noticed some recent teeth discomfort but feels like it stress related to clenching. Patient denies fevers nausea vomiting chills. The history is provided by the patient. No language arts teacher was used. Edema Review of Systems Constitutional: [...] OR EXPOSED ROOT (ELEVATION AND/OR FORCEPS REMOVAL) [place] teeth PAST SURGICAL HISTORY OF 1989 CRYOTHERAPY [...] okay with this care plan. Jaci Mendoza APRN.CNP [facility] of Past illness Narrative* Problem Noted Date Resolved Date Routine general medical exam ination at a health care facility 06/06/2009 03/24/2012 Overview: 06/06/2009, established from Mallory Villanueva Routine gynecological examination 06/06/2009 03/24/2012 Overview: [facility], [facility] Rao documented as of this encounter (statuses as of 11/29/2022) [facility]Reason for visit Narrative* Chief Complaint SCREENING Annual (DIRECTOR INTELLIGENCE ANALYSIS PROGRAMS) Reason for Visit Counseling for hormo ne replacement therapy Family history of breast cancer in mother Encounter for routine gynecological examination [facility] Work Phone: Evaluation note* Diagnosis Onset Date Resolution Status Counseling for hormone replacement therapy acute Family history of breast cancer in mother acute Encounter for routine gynecological examination noneactive [facility] Work Phone: Evaluation note* Diagnosis Tooth infection- Primary Acute apical periodontitis of pulpal origin documented in this encounter [facility] Diagnosis Onset Date Resolution Status Possible exposure to STD non eactive Encounter for routine gynecological examination noneactive Monilial vaginitis noneactiv e [facility] Work Phone: Evaluation note* Diagnosis Onset Date Resolution Status Possible exposure to STD non eactive Encounter for routine gynecological examination noneactive Monilial vaginitis noneactiv e Immunization declined noneac tive Screening for colon cancer n oneactive Screening for cardiovascular condition noneactive Establishing care with new doctor, encounter for noneactive Annual physical exam noneact teresa [facility] Work Phone: Evaluation note* Diagnosis Onset Date Resolution Status Admit Date Encounter for routine gynecological examination noneactive May 232024 7:42am [facility] Work Phone: Reason for referral (narrative)No reason for referral information available[facility] Work Phone: Family History Relationship Condition Age at Onset Recorded Date/T katherine mother Malignant neoplasm of breast Unknown Disorder of thyroid Unknown Hyperlipidemia Unknown Summary Purpose Advance Directives No Advanced Directives Records FoundNo Advanced Directives Records Found Chief Complaint and Reason for Visit Chief Complaint SCREENING Annual (DIRECTOR INTELLIGENCE ANALYSIS PROGRAMS) Reason for Visit Possible exposure to STD Encounter for routine gynecological examination Monilial vaginitis Chief Complaint SCREENING Annual (DIRECTOR INTELLIGENCE ANALYSIS PROGRAMS) EST NEW PT INT LABS Reason for Visit Possible exposure to STD Encounter for routine gynecological examination Monilial vaginitis Immunization declined Screening for colon cancer Screening for cardiovascular condition Establishing care with new doctor, encounter for Annual physical exam Chief Complaint Admit Date SCREENING June 06, 2025 6:58 am Annual (DIRECTOR INTELLIGENCE ANALYSIS PROGRAMS) June 06, 2025 7:42 am Reason for Visit Admit Date Encounter for routine gynecological exam ination June 06, 2025 7:42am Reason for Visit Admit Date ASCUS of cervix with negative high risk HPV June 06, 2025 7:42am Encounter for routine gynecological exam ination June 06, 2025 7:42am Abnormal mammogram of left breast May 232024 7:42am Monilial intertrigo June 06, 2025 7:42 am Chief Complaint Admit Date SCREENING June 06, 2025 6:58 am Annual (DIRECTOR INTELLIGENCE ANALYSIS PROGRAMS) June 06, 2025 7:42 am ABN MAMM June 15, 2025 7:28 am Chief Complaint Admit Date SCREENING June 06, 2025 6:58 am Annual (DIRECTOR INTELLIGENCE ANALYSIS PROGRAMS) June 06, 2025 7:42 am ABN MAMM June 15, 2025 7:28 am YEARLY June 26, 2025 1:0 2pm Reason for Visit Admit Date ASCUS of cervix with negative high risk HPV June 06, 2025 7:42am Encounter for routine gynecological exam ination June 06, 2025 7:42am Abnormal mammogram of left breast May 232024 7:42am Monilial intertrigo June 06, 2025 7:42 am Immunization declined June 26, 2025 1 :02pm Screening for colon cancer June 26, 2 025 1:02pm Screening for cardiovascular condition A ugust 2024 1:02pm Annual physical exam June 26, 2025 1: 02pm Obesity with body mass index (BMI) of 30 .0 to 39.9 June 26, 2025 1:02pm Additional Source Comments Goals (unrecognized section and [...] section and content) DATE CREATED AUTHOR 11/29/2022 [facility] DATE CREATED AUTHOR AUTHOR'S ORGANIZ ATION 06/22/2025 [facility] Source Comments (unrecognize d section and content) In the event this informatio n is protected by the Federal Confidentiality of Alcohol and Drug Abuse Patient Records regulations: The Federal rules restrict any use of the information to criminally investigate or prosecute any alcohol or drug abuse patient.[facility] Reason for Visit (unrecogniz ed section [...] Provider, Refer ring Provider Active Mónica Mcgrath AURIST, AURIST-C Attending Provider Active Team Status: Inactive Member Role Status Dates No Primary Care Physician Primary Care Provider Active Mónica Mcgrath AURIST, AURIST-C Attending Provider, Referring Provider Active Team Status: [...] Active Start: June 06, 2025 Mónica Mcgrath AURIST, AURIST-C Attending Provider Active Start: June 06, 2025 Mónica Mcgrath AURIST, AURIST-C Referring Provider Active Start: June 06, 2025 Team Status: Inactive Member Role/Relationship Status Dates Dr. Bev Banks MD Primary Care Provider Active Start: June 06, 2025 End: June 06, 2025 Dr. Bev Banks MD Referring Provider Active Start: June 06, 2025 End: June 06, 2025 Mónica Mcgrath AURIST, AURIST-C Attending Provider Active Start: June 06, 2025 End: June 06, 2025 Team Status: Inactive Member Role/Relationship Status Dates Dr. Bev Banks MD Primary Care Provider Active Start: June 06, 2025 End: June 06, 2025 Mónica Mcgrath AURIST, AURIST-C Attending Provider Active Start: June 06, 2025 End: June 06, 2025 Team Status: Inactive Member Role/Relationship Status Dates Dr. Bev Banks MD Primary Care Provider Active Start: June 06, 2025 End: June 06, 2025 Mónica Mcgrath AURIST, AURIST-C Attending Provider Active Start: June 06, 2025 End: June 06, 2025 Mónica Mcgrath AURIST, AURIST-C Referring Provider Active Start: June 06, 2025 End: June 06, 2025 Team Status: Inactive Member Role/Relationship Status Dates Dr. Bev Banks MD Primary Care Provider Active Start: June 15, 2025 End: June 15, 2025 Mónica Mcgrath AURIST, AURIST-C Attending Provider Active Start: June 15, 2025 End: June 15, 2025 Mónica Mcgrath AURIST, AURIST-C Referring Provider Active Start: June 15, 2025 End: June 15, 2025 Team Status: Inactive Member Role/Relationship Status Dates Dr. Bev Banks MD Primary Care Provider Active Start: June 26, 2025 End: June 26, 2025 Dr. Bev Banks MD Attending Provider Active Start: June 26, 2025 End: June 26, 2025 Dr. Bev Banks MD Referring Provider Active Start: June 26, 2025 End: June 26, 2025 FOR RECORDS PERTAINING TO PATIENTS WHO [...] BE BASED ON THE PRIMARY CLINICAL RECORDS. [employer] [facility]. provides no warranty or guarantee of the accuracy or completeness of information in this document.
[2025-06-27 07:49] LABS: Hematocrit 38.1 % (37-47); Hemoglobin 12.5 g/dL (12.0-15.0); Immature Granulocytes Count 0.000 X10^3/uL (0.0-0.0); Mean Corp Hgb Conc 32.8 g/dL (32-36); Mean Corpuscular Volume 91.8 fL (81-99); Mean Platelet Vol. 11.0 fl (6.2-12.0); NRBC Flagged by Analyzer 0 % (0-5); Platelet Count 230 K/mm3 (150-450); RBC Distribution Width CV 12.8 % (11.6-14.6); RBC Distribution Width SD 42.7 fl (35.1-43.9); Red Blood Count 4.15 M/mm3 (4.2-5.4); White Blood Count 5.8 K/mm3 (4.4-11.0)
[2025-06-27 08:32] LABS: AST(SGOT) 20 U/L (<=31); Alanine Aminotransfer ALT/SGPT 16 U/L (<=34); Albumin, Serum 4.0 g/dL (3.5-5.0); Alkaline Phosphatase 114 U/L (35-104); Anion Gap 11 (5-15); BUN 13 mg/dL (4-19); BUN/Creat Ratio 14.8 RATIO (10-20); Calcium,Total 9.0 mg/dL (7.6-11.0); Carbon Dioxide 23.4 mmol/L (21.0-32.0); Chloride 104 mmol/L (98-108); Cholesterol 223 mg/dL (<=200); Globulin 3.4 g/dL (2.2-4.2); Glucose 82 mg/dL (70-99); Low Density Lipoprotein Calc. 136 mg/dL; Magnesium 2.2 mg/dL (1.5-2.2); Potassium 4.1 mmol/L (3.3-5.1); Triglycerides 115 mg/dL; Very Low Density Lipoprotein 23 mg/dL (5-40); cholesterol:hdl ratio screen 3.48
== END | disposition home or self-care (01) ==
LOC: LAB 07:07
PROVIDERS: PCP Internal Medicine; Referring Provider Internal Medicine; Visit Provider Internal Medicine
DX: Z00.00 Encounter for general adult medical examination without abnormal findings (principal); Z13.6 Encounter for screening for cardiovascular disorders; E66.9 Obesity, unspecified
CPT/HCPCS: 36415; 80053; 80061; 83735; 84443; 85025